=== PATIENT | male | born 1965 | race Caucasian/White ===

== ENCOUNTER → 2018-06-07 07:40 | Outpatient (CLI) | payer OTHER, SELFPAY ==
[2018-06-07 08:40] LABS: Add Manual Diff / Slide Review NO; Basophils Absolute Auto 0 /uL (0-100); Basophils Percent Auto 0.3 % (0-2); Eosinophils Absolute Auto 100 /uL (0-450); Eosinophils Percent Auto 1.9 % (2-4); Hematocrit 42.7 % (41-53); Hemoglobin 14.6 g/dL (13.5-17.5); Lymphocytes Absolute Auto 2400 /uL (1100-4500); Lymphocytes Percent Auto 35.5 % (25-40); Mean Corpuscular HGB Conc 34.1 % (30-36); Mean Corpuscular Hemoglobin 30.1 PG (26-34); Mean Corpuscular Volume 88.3 fL (80-100); Monocytes Absolute Auto 800 /uL (0-900); Monocytes Percent Auto 11.7 % (3-14); Neutrophils Absolute Auto 3400 /uL (1500-7000); Neutrophils Percent Auto 50.6 % (50-75); Platelet Count 305 X10^3/uL (150-400); Red Blood Cell Count 4.84 X10^6/uL (4.5-5.9); Red Cell Distribution Width 13.2 % (11.6-14.8); White Blood Cell Count 6.8 X10^3/uL (4.5-11.0)
[2018-06-07 09:07] LABS: BUN Creatinine Ratio 11.7 (6-22); Blood Urea Nitrogen 14 mg/dL (9-20); Calcium 9.2 mg/dL (8.4-10.2); Carbon Dioxide 27 mmol/L (22-32); Chloride 105 mmol/L (98-107); Estimated Glomerular Filt Rate > 60.0 mL/min (>60); Glucose 91 mg/dL (70-100); HEMOLYSIS < 15 (0-50); Potassium 4.6 mmol/L (3.4-5.1); Sodium 140 mmol/L (137-145); Uric Acid 7.6 mg/dL (3.5-8.5)
[2018-06-07 09:11] LABS: Calcium Urine Random 6.3
[2018-06-07 09:28] LABS: Vitamin D 25 Hydroxy (D3) 21.7 ng/mL (30.0-100.0)
== END ==
PROVIDERS: PCP Student in an Organized Health Care Education/Training Program; Visit Provider Student in an Organized Health Care Education/Training Program
DX: N18.2 Chronic kidney disease, stage 2 (mild) (principal); E55.9 Vitamin D deficiency, unspecified; I12.9 Hypertensive chronic kidney disease with stage 1 through stage 4 chronic kidney disease, or unspecified chronic kidney disease; Z87.442 Personal history of urinary calculi; Z80.7 Family history of other malignant neoplasms of lymphoid, hematopoietic and related tissues
CPT/HCPCS: 36415; 80048; 82306; 82340; 84550; 85025

== ENCOUNTER 2018-06-25 11:45 | Day surgery (SDC) | payer OTHER, SELFPAY ==
[2018-06-25] VITALS (7 sets, daily range): BP systolic 108–129; BP diastolic 64–88; PULSE 81–109; RESP 12–18; TEMP 36.2–37.1; O2SAT 97–100; BMI 22.4
[2018-06-25] MEDS: SODIUM CHLORIDE 0.9% 1,000 ML 200 ML IV (12:23)
--- NOTE | 2018-06-25 12:53 | PM.HP.1 ---
History of Present Illness Chief complaint: [id number] SCREENING COLONOSCOPY Patient History Medical History GERD (gastroesophageal reflux disease) (Chronic ~1994) Hearing loss (Chronic ~2014) Hemorrhoid (Chronic) Hypertension (Chronic ~2011) Kidney stones (Chronic ~1993) Migraines (Chronic) Tinnitus (Chronic) Surgical History Anesthesia (Resolved) History of third molar tooth extraction Status post hernia repair Social History household members: none Smoking Status: Never smoker alcohol intake: never substance use type: does not use Family & Social History Social History: household members none Tobacco & Substance use: Smoking Status Never smoker alcohol intake never Meds Home Medications Medication Instructions Recorded Confirmed Type multivitamin [Multiple Vitamins] 1 tab PO QDAY #0 05/19/17 05/21/18 History lisinopril 10 mg tablet 10 mg PO DAILY #90 tab 05/21/18 Rx potassium citrate ER 15 mEq (1,620 15 meq PO BID #60 tab 05/21/18 Rx mg) tablet,extended release Allergies Allergy/AdvReac Type Severity Reaction Status Date / Time No Known Drug Allergies Allergy Verified 05/21/18 10:47 Review of Systems Review of Systems All systems reviewed & are unremarkable except as noted in HPI and below Exam Vital Signs (past 8 hours): - 06/25/18 12:16 Temperature 97.2 F L Pulse Rate 109 H Respiratory Rate 16 Blood Pressure 119/83 Pulse Oximetry 100 Oxygen Delivery Method Room Air Narrative Exam Narrative: Patient has normal vital signs which are stable Ears nose and throat are unremarkable Lungs are clear Heart regular rhythm no murmur Abdomen is soft and nontender Rectal will be done at the time of colonoscopy Assessment & Plan Assessment & Plan narrative: Patient is here for a screening colonoscopy this is his 1st colonoscopy. I explained the details of procedure including possible risks of bleeding perforation etc he understands has no further questions.
[2018-06-25] MEDS: MIDAZOLAM 5 MG/5 ML VIAL IV (13:24)
--- NOTE | 2018-06-25 13:24 | PM.OP.1 ---
Operative Date/Time/Diagnoses Date of procedure: 06/25/18 Time of procedure: 13:24 Pre-op diagnosis: Screening colonoscopy Post-op diagnosis: same Procedure & Clinicians Procedure: Total colonoscopy to the cecum Same procedure as scheduled: Yes Indications: Screening Surgeon: Real Holguin Click Yes if Unassisted: Yes Anesthesia Type: Sedation Operative Notes Findings: Patient has moderately large internal hemorrhoids otherwise a normal colonoscopy Closure Type: not applicable Specimen(s): none sent Blood products transfused: none Procedure in detail: Under conscious sedation with Versed and fentanyl a total of 5 of Versed and 150 of fentanyl were given with a total sedation time of 16 minutes. The patient was properly identified during surgical pause and the flexible fiberoptic colonoscope inserted from the anus to the cecum patient has no polyps no tumors no diverticulosis. He does have dilated internal hemorrhoids of a moderate nature. Recommend repeat colonoscopy in 10 years. Complications: none Condition: stable Disposition: PACU Plan for aftercare: Colonoscopy in 10 years
[2018-06-25] MEDS: fentaNYL 250 MCG/5 ML INJ IV (13:25)
== END 2018-06-25 14:13 | disposition home or self-care (01) ==
PROVIDERS: PCP Student in an Organized Health Care Education/Training Program; Visit Provider Surgery
PROC: 0DJD8ZZ Inspection of Lower Intestinal Tract, Via Natural or Artificial Opening Endoscopic (ICD-10-PCS; CPT 45378; principal; 2018-06-25 13:00)
DX: Z12.11 Encounter for screening for malignant neoplasm of colon (principal); K64.8 Other hemorrhoids; I10 Essential (primary) hypertension
CPT/HCPCS: 45378; J2250; J3010

== ENCOUNTER 2019-11-01 09:57 | Inpatient (IN) | payer OTHER, SELFPAY ==
[2019-11-01] VITALS (14 sets, daily range): BP systolic 134–150; BP diastolic 87–105; PULSE 81–90; RESP 14–18; TEMP 36.3–37.8; O2SAT 95–100; BMI 21.7
--- NOTE | 2019-11-01 | DI.CT.S_ITS ---
PROCEDURE: CT PEL WO CON INDICATIONS: assess fracture pattern in anticipation of OR tomorrow TECHNIQUE: Noncontrast 3 mm axial sections acquired through the bony pelvis, with coronal and sagittal reformatting. COMPARISON: None. FINDINGS: Image quality: Excellent. Bones: Right femoral neck fracture, mildly impacted. This fracture does not extend into the articular surface or into the intertrochanteric line. No additional pelvic fracture found. Soft tissues: No hematoma identified. IMPRESSION: Mildly impacted femoral neck fracture at the right hip, no additional trauma Dictated by: Khadar Fay M.D. on 11/01/2019 at 18:24 Approved by: Khadar Fay M.D. on 11/01/2019 at 18:26
--- NOTE | 2019-11-01 10:02 | DI.RAD.S_ITS ---
PROCEDURE: XR HIP W PEL IF DONE RT 2V INDICATIONS: fall pain TECHNIQUE: AP pelvis with lateral view(s) of the right hip. COMPARISON: None. FINDINGS: Bones: No dislocations. Pelvic ring appears intact. No suspicious bony lesions. There is a femoral neck fracture on the right, mildly displaced and angulated. Soft tissues: The visualized bowel gas pattern is normal. No suspicious soft tissue calcifications. IMPRESSION: Acute appearing right femoral neck fracture, no additional pelvic injury found. Dictated by: Khadar Fay M.D. on 11/01/2019 at 10:38 Approved by: Khadar Fay M.D. on 11/01/2019 at 10:39
[2019-11-01 10:08] LABS: Add Manual Diff / Slide Review NO; Basophils Absolute Auto 0 /uL (0-100); Basophils Percent Auto 0.1 % (0-2); Eosinophils Absolute Auto 0 /uL (0-450); Hematocrit 46.5 % (41-53); Hemoglobin 15.7 g/dL (13.5-17.5); Lymphocytes Absolute Auto 900 /uL (1100-4500); Lymphocytes Percent Auto 5.4 % (25-40); Mean Corpuscular HGB Conc 33.8 % (30-36); Mean Corpuscular Hemoglobin 29.6 PG (26-34); Mean Corpuscular Volume 87.5 fL (80-100); Monocytes Absolute Auto 1000 /uL (0-900); Monocytes Percent Auto 5.9 % (3-14); Neutrophils Absolute Auto 15400 /uL (1500-7000); Neutrophils Percent Auto 88.6 % (50-75); Platelet Count 330 X10^3/uL (150-400); Red Blood Cell Count 5.31 X10^6/uL (4.5-5.9); Red Cell Distribution Width 13.3 % (11.6-14.8); White Blood Cell Count 17.4 X10^3/uL (4.5-11.0)
--- NOTE | 2019-11-01 10:10 | ED_ITS ---
HPI - Extremity Injury (Lower) General Chief Complaint: Extremity Injury, Lower Stated Complaint: R Hip Injury Time Seen by Provider: 11/01/19 10:01 Source: patient and EMS Mode of arrival: EMS Limitations: no limitations History of Present Illness HPI Narrative: Patient is a 54-year-old male with history of hypertension who presents with right hip pain after a fall. He says the smoke alarm was going off early this morning around 330 he got a ladder possibly around 5 he says he was wearing tennis shoes there was not enough friction between is 10 issues in the floor and he slipped and fell. He was unable to get help he missed a meeting around 830 the and somebody came to check on him. Denies any head in in jury or loss of consciousness. He has no numbness tingling or weakness in his lower extremity but he has severe pain in his hip. MD complaint: hip injury Onset (ago): hour(s) Related Data Home Medications Medication Instructions Recorded Confirmed multivitamin [Multiple Vitamins] 1 tab PO QDAY #0 05/19/17 05/21/18 Previous Rx's Medication Instructions Recorded lisinopril 10 mg tablet 10 mg PO DAILY #90 tab 05/21/18 potassium citrate 15 mEq (1,620 15 meq PO BID #60 tab 11/29/18 mg) tablet,extended release Allergies Allergy/AdvReac Type Severity Reaction Status Date / Time No Known Drug Allergies Allergy Verified 11/01/19 10:16 Review of Systems Review of Systems Narrative: GENERAL: Denies chills, fatigue, malaise, fever, sweats, travel HEENT: Denies sinus pain, ear pain, sore throat, difficulty swallowing, neck pain RESPIRATORY: Denies dyspnea, cough, wheezing, hemoptysis, sputum. CARDIOVASCULAR: Denies chest pain, palpitations, orthopnea, edema GASTROINTESTINAL: Denies nausea, vomiting, abdominal pain, diarrhea, constipation, melena. : Denies dysuria, frequency, incontinence, hematuria, urinary retention, flank pain. MUSCULOSKELETAL: See HPI SKIN: No rash, no erythema, no pruritus NEUROLOGIC: Denies weakness, dizziness, headache, numbness, change in speech, confusion PSYCHIATRIC: No concerning psychosocial issues. 12 point review of systems is negative except for those stated above and HPI Patient History Medical History GERD (gastroesophageal reflux disease) (Chronic ~1994) Hearing loss (Chronic ~2014) Hemorrhoid (Chronic) Hypertension (Chronic ~2011) Kidney stones (Chronic ~1993) Migraines (Chronic) Tinnitus (Chronic) Surgical History Anesthesia (Resolved) History of third molar tooth extraction Status post hernia repair Social History household members: none Smoking Status: Never smoker alcohol intake: never substance use type: does not use Smoking Status: Never smoker Exam Initial Vital Signs Initial Vital Signs: Vital Signs Temperature 98 F 11/01/19 10:00 Pulse Rate 88 11/01/19 10:00 Respiratory Rate 18 11/01/19 10:00 Blood Pressure 134/105 H 11/01/19 10:00 Pulse Oximetry 100 11/01/19 10:00 GENERAL: Well-appearing, well-nourished and in no acute distress. HEENT: Head atraumatic,EOMI, pupils reactive, face symmetric, moist mucous membranes CARDIOVASCULAR: Regular rate and rhythm without murmurs, rubs or gallops. RESPIRATORY: Breath sounds equal bilaterally, no wheezes rales or rhonchi. ABDOMEN: Soft, nontender. Normoactive bowel sounds all 4 quadrants. No guarding or rebound. EXTREMITIES: Normal range of motion, no clubbing or edema. Neurovascularly intact. Tender right hip NEUROLOGICAL: Alert and oriented x4.Normal gait and speech. SKIN: Warm, dry, no laceration, no petechiae, no rashes or lesions. Course Orders Ordered: ED Orders 11/01/19 09:35 Complete Blood Count AUTO DIFF Stat Comprehensive Metabolic Panel Stat Creatine Kinase Stat 11/01/19 10:02 XR hip w pel if done RT 2V Stat 11/01/19 11:23 Consult to Orthopedic Surgery Stat 11/01/19 11:28 EKG-12 Lead Stat Discontinued Medications Hydromorphone HCl (Dilaudid) 0.5 mg IV NOW ONE Stop: 11/01/19 10:43 Last Admin: 11/01/19 10:54 Dose: 0.5 mg Documented by: JANIE Consultations Consultation #1: Vijaya reviewed xrays. will need total hip. Time: 10:45 Vital Signs Vital signs: Vital Signs - 8 hr 11/01/19 10:00 11/01/19 10:01 11/01/19 10:30 Temperature 98 F Pulse Rate 88 84 90 Respiratory Rate 18 Blood Pressure 134/105 H 149/87 H Pulse Oximetry 100 100 100 11/01/19 11:00 Temperature Pulse Rate 84 Respiratory Rate Blood Pressure 147/92 H Pulse Oximetry 100 MDM - Extremity Injury (Lower) Lab Data Attestation: I reviewed the patient's lab results. Result diagrams: 11/01/19 09:35 11/01/19 09:35 Labs: Lab Results 11/01/19 11/01/19 Range/Units 09:35 09:35 WBC 17.4 H (4.5-11.0) X10^3/uL RBC 5.31 (4.5-5.9) X10^6/uL Hgb 15.7 (13.5-17.5) g/dL Hct 46.5 (41-53) % MCV 87.5 (80-100) fL MCH 29.6 (26-34) PG MCHC 33.8 (30-36) % RDW 13.3 (11.6-14.8) % Plt Count 330 (150-400) X10^3/uL Neut % (Auto) 88.6 H (50-75) % Lymph % (Auto) 5.4 L (25-40) % [place] % (Auto) 5.9 (3-14) % Eos % (Auto) 0.0 L (2-4) % Baso % (Auto) 0.1 (0-2) % Neut # (Auto) 93306 H (1427-0602) /uL Lymph # (Auto) 900 L (4331-5276) /uL [place] # (Auto) 1000 H (0-900) /uL Eos # (Auto) 0 (0-450) /uL Baso # (Auto) 0 (0-100) /uL Sodium 143 (137-145) mmol/L Potassium 4.3 (3.4-5.1) mmol/L Chloride 107 (98-107) mmol/L Carbon Dioxide 24 (22-32) mmol/L BUN 16 (9-20) mg/dL Creatinine 1.21 (0.66-1.25) mg/dL Estimated GFR > 60.0 (>60) mL/min BUN/Creatinine Ratio 13.2 (6-22) Glucose 122 H (70-100) mg/dL Calcium 9.9 (8.4-10.2) mg/dL Total Bilirubin 2.1 H (0.2-1.3) mg/dL AST 47 (17-59) IU/L ALT 64 H (<50) IU/L Alkaline Phosphatase 90 (38-126) U/L Total Creatine Kinase 69 (55-170) U/L Total Protein 7.8 (6.3-8.2) g/dL Albumin 4.8 (3.5-5.0) g/dL Globulin 3.0 (1.7-4.1) g/dL Albumin/Globulin Ratio 1.6 (1.0-2.8) Imaging Data Extremity x-ray #1: Radiologist's Impression: PROCEDURE: XR HIP W PEL IF DONE RT 2V INDICATIONS: fall pain TECHNIQUE: AP pelvis with lateral view(s) of the right hip. COMPARISON: None. FINDINGS: Bones: No dislocations. Pelvic ring appears intact. No suspicious bony lesions. There is a femoral neck fracture on the right, mildly displaced and angulated. Soft tissues: The visualized bowel gas pattern is normal. No suspicious soft tissue calcifications. IMPRESSION: Acute appearing right femoral neck fracture, no additional pelvic injury found. Dictated by: Khadar Fay M.D. on 11/01/2019 at 10:38 Approved by: Khadar Fay M.D. on 11/01/2019 at 10:39 ECG Data Attestation: I personally reviewed and interpreted this ECG as follows: Prior ECG tracings: not available for review Interpretation: Normal sinus rhythm rate 85 p.r. interval 168 QRS [address] changes prolonged QT no priors to compare MDM Narrative Medical decision making narrative: The patient is given Dilaudid for pain contr ol. Leukocytosis unclear why, patient has been afebrile without infectious symptoms, possible stress related. CPK is is within normal limits no sign of rhabdomyolysis. [facility] accepts for admission. Discharge Plan Departure Patient Disposition: Admitted As Inpatient Clinical Impression: Closed fracture of neck of right femur Discharge Date/Time: 11/01/19 12:15 Referrals: Martín James MD [Primary Care Provider] - Admit Date/Time: 11/01/19 11:28 Admit Provider: David Scales
[2019-11-01 10:20] LABS: Alanine Aminotransferase 64 IU/L (<50); Albumin 4.8 g/dL (3.5-5.0); Albumin Globulin Ratio 1.6 (1.0-2.8); Alkaline Phosphatase 90 U/L (38-126); Aspartate Aminotransferase 47 IU/L (17-59); BUN Creatinine Ratio 13.2 (6-22); Bilirubin Total 2.1 mg/dL (0.2-1.3); Blood Urea Nitrogen 16 mg/dL (9-20); Calcium 9.9 mg/dL (8.4-10.2); Carbon Dioxide 24 mmol/L (22-32); Chloride 107 mmol/L (98-107); Creatine Kinase 69 U/L (55-170); Estimated Glomerular Filt Rate > 60.0 mL/min (>60); Glucose 122 mg/dL (70-100); HEMOLYSIS 16 (0-50); Potassium 4.3 mmol/L (3.4-5.1); Sodium 143 mmol/L (137-145); Total Protein 7.8 g/dL (6.3-8.2)
[2019-11-01] MEDS: HYDROMORPHONE 0.5 MG INJ IV (10:54)
--- NOTE | 2019-11-01 12:30 | PC.NURSE ---
Day shift: Pt on unit at approx 1215. Rt hip pain with any movement. BP elevated w/ no c/o headache or chest pain. RA 98%. Dr Scales informed Pt is here now in RM 212. Pt oriented to room and call light. Call light in reach.
[2019-11-01 12:55] LABS: COVID19 -Nasal RAPID Negative (Negative)
--- NOTE | 2019-11-01 13:40 | PM.HP.1 ---
History of Present Illness History of Present Illness Date Patient Seen: 11/01/19 Time Patient Seen: 13:40 Chief complaint: R Hip Injury Narrative: Yair Barreto is a 54-year-old male with a past medical history of hypertension, no longer on medications, who presented after a mechanical fall landing on his right side complaining of severe right hip pain. Patient states that he was walking down the stairs with a ladder, at the bottom of the stairs is tile and he slipped and fell on the tile landing on his right hip. He was able to crawl and sit up until waiting for a couple hours for someone to arrive and call EMS. His pain was somewhat controlled with opiates in the ER, and there is little to no pain at rest but it is severe when moving at all. He denies any history of osteoporosis although he does endorse prior rib fractures in the past. In the emergency room, patient was mildly hypertensive but remainder vital signs were unremarkable. Initial labs showed a leukocytosis at 17.4, but otherwise unremarkable CBC. Chemistries showed a mildly elevated glucose at 122, total bilirubin of 2.1, and ALT of 64. COVID-19 testing was negative. Calcium was normal at 9.9. EKG showed normal sinus rhythm with a mild prolonged QTC interval at 485. Hip x-ray showed an acute right femoral neck fracture which is mildly displaced and angulated. Patient History Medical History GERD (gastroesophageal reflux disease) (Chronic ~1994) Hearing loss (Chronic ~2014) Hemorrhoid (Chronic) Hypertension (Chronic ~2011) Kidney stones (Chronic ~1993) Migraines (Chronic) Tinnitus (Chronic) Surgical History Anesthesia (Resolved) History of third molar tooth extraction Status post hernia repair Family & Social History Social History: household members none Safety & Behavioral: Feels Safe in Current Yes Environment Been Physically Hurt or No Threatened By a Person Tobacco & Substance use: Smoking Status Never smoker alcohol intake never alcohol intake frequency 0-2 drinks per day Substance Use Type does not use Meds Home Medications and Allergies Home Medications Medication Instructions Recorded Confirmed Type multivitamin [Multiple Vitamins] 1 tab PO QDAY #0 05/19/17 05/21/18 History lisinopril 10 mg tablet 10 mg PO DAILY #90 tab 05/21/18 Rx potassium citrate 15 mEq (1,620 15 meq PO BID #60 tab 11/29/18 Rx mg) tablet,extended release Allergies Allergy/AdvReac Type Severity Reaction Status Date / Time No Known Drug Allergies Allergy Verified 11/01/19 10:16 Review of Systems Review of Systems Narrative: All other systems reviewed with the patient and are negative unless otherwise stated. Exam Vital Signs (past 8 hours): - 11/01/19 10:00 11/01/19 10:01 11/01/19 10:30 Temperature 98 F Pulse Rate 88 84 90 Respiratory Rate 18 Blood Pressure 134/105 H 149/87 H Pulse Oximetry 100 100 100 11/01/19 11:00 11/01/19 11:30 11/01/19 12:00 Temperature Pulse Rate 84 90 89 Respiratory Rate Blood Pressure 147/92 H 140/88 146/90 H Pulse Oximetry 100 100 100 Oxygen Delivery Method Room Air Narrative Exam Narrative: GENERAL APPEARANCE: Well developed, well nourished, mildly anxious. SKIN: Inspection of the skin reveals no rashes, ulcerations or petechiae. HEENT: Normocephalic atraumatic, extraocular muscles are intact, oropharynx is clear and mucous membranes are moist, neck is supple without adenopathy NECK: Supple and symmetric. There was no thyroid enlargement, and no tenderness, or masses were felt. CHEST: Normal AP diameter and normal contour without any kyphoscoliosis. LUNGS: Auscultation of the lungs revealed no wheezes, rhonchi, or rales. CARDIOVASCULAR: There was a regular rate and rhythm without any murmurs, gallops, rubs. Peripheral pulses were 2+ and symmetric. ABDOMEN: Soft and nontender with normal bowel sounds. No ascites was noted. MUSCULOSKELETAL: R hip tenderness, flexed at the hips and legs tied around a pillow. Distal pulses +2. EXTREMITIES: No cyanosis, clubbing or edema. NEUROLOGIC: Alert and oriented x 3. Normal affect. Gait was normal. Normal tone. Sensation to touch was normal. Objective Labs Result Diagrams: 11/01/19 09:35 11/01/19 09:35 Labs: Laboratory Results - last 24 hr 11/01/19 11/01/19 11/01/19 09:35 09:35 12:00 WBC 17.4 H RBC 5.31 Hgb 15.7 Hct 46.5 MCV 87.5 MCH 29.6 MCHC 33.8 RDW 13.3 Plt Count 330 Neut % (Auto) 88.6 H Lymph % (Auto) 5.4 L [place] % (Auto) 5.9 Eos % (Auto) 0.0 L Baso % (Auto) 0.1 Neut # (Auto) 41843 H Lymph # (Auto) 900 L [place] # (Auto) 1000 H Eos # (Auto) 0 Baso # (Auto) 0 Sodium 143 Potassium 4.3 Chloride 107 Carbon Dioxide 24 BUN 16 Creatinine 1.21 Estimated GFR > 60.0 BUN/Creatinine Ratio 13.2 Glucose 122 H Calcium 9.9 Total Bilirubin 2.1 H AST 47 ALT 64 H Alkaline Phosphatase 90 Total Creatine Kinase 69 Total Protein 7.8 Albumin 4.8 Globulin 3.0 Albumin/Globulin Ratio 1.6 COVID-19 PCR Negative Assessment & Plan Assessment & Plan narrative: Yair Barreto is a 54-year-old male with a past medical history of hypertension, no longer on medications, who presented after a mechanical fall landing on his right side complaining of severe right hip pain. He has a right femoral neck fracture that is mildly displaced and angulated, pending orthopedic consultation with likely operative interventions. 1. Right femoral neck fracture, acute, present on admission -pending orthopedic surgery formal consultation -NPO/IV fluids and pain control with Toradol and Dilaudid -PT/OT have been ordered -likely pathologic given nature of ground level fall. His calcium is unremarkable, will obtain a TSH to look for a possible secondary cause of early osteoporosis. Patient does have a history of vitamin-D deficiency and will recheck this level. 2. History of hypertension -has been off of pain medications but used to take lisinopril 10 mg. At this point blood pressure is mildly elevated likely in the setting of pain. Will continue to monitor and treat as necessary. -his EKG shows a mildly prolonged QT interval and will continue telemetry 3. Prolonged QT interval -continue telemetry 4. Leukocytosis, acute, present on admisison -likely reactive in the setting of trauma, no other signs or symptoms of infection but will continue to monitor. Code: Full, as discussed with the patient Dispo: Admitted under inpatient status as his stay is expected to exceed 2 midnights. DVT: On hold given possible operative interventions, will resume chemical prophylaxis after likely operative interventions COVID-19 COVID-19 status: Negative
--- NOTE | 2019-11-01 13:52 | OT.IPNOTE ---
Pt has right femoral neck fracture, to await results of orthopedic consult prior to OT eval.
[2019-11-01] MEDS: DEXTROSE 5%-0.45% NS 1,000 ML 100 ML IV (13:54)
[2019-11-01] MEDS: HYDROMORPHONE 1 MG INJ IV ×2 (13:55→17:58)
--- NOTE | 2019-11-01 17:37 | PM.CN ---
History of Present Illness Consult details Date Patient Seen: 11/01/19 Time Patient Seen: 17:37 Chief complaint: R Hip Injury Reason for consult: right displaced intra-capsular femoral neck fracture Narrative: Patient is a 54-year-old male with a past medical history of hypertension, he is no longer on medications, who presented after a mechanical fall landing on his right side complaining of severe right hip pain. Patient states that he was walking down the stairs with a ladder, at the bottom of the stairs is tile and he slipped and fell on the tile landing on his right hip. He was able to crawl and sit up until waiting for a couple hours for someone to arrive and call EMS. His pain was somewhat controlled with opiates in the ER, and there is little to no pain at rest but it is severe when moving at all. He denies any history of osteoporosis although he does endorse prior rib fractures in the past. He denies history of right hip or groin pain prior to the injury. He denies any previous surgeries. He denies history of frequent mechanical falls. He denies striking his head or any loss of consciousness. Patient ambulates without any assistive devices. Meds Home Medications and Allergies Home Medications Medication Instructions Recorded Confirmed Type multivitamin [Multiple Vitamins] 1 tab PO QDAY #0 05/19/17 05/21/18 History lisinopril 10 mg tablet 10 mg PO DAILY #90 tab 05/21/18 Rx potassium citrate 15 mEq (1,620 15 meq PO BID #60 tab 11/29/18 Rx mg) tablet,extended release Allergies Allergy/AdvReac Type Severity Reaction Status Date / Time No Known Drug Allergies Allergy Verified 11/01/19 10:16 Review of Systems Review of Systems ROS: Yes All systems reviewed with the patient and are negative except as otherwise documented Exam Vital Signs (past 8 hours): - 11/01/19 10:00 11/01/19 10:01 11/01/19 10:30 Temperature 98 F Pulse Rate 88 84 90 Respiratory Rate 18 Blood Pressure 134/105 H 149/87 H Pulse Oximetry 100 100 100 11/01/19 11:00 11/01/19 11:30 11/01/19 12:00 Temperature Pulse Rate 84 90 89 Respiratory Rate Blood Pressure 147/92 H 140/88 146/90 H Pulse Oximetry 100 100 100 11/01/19 12:25 11/01/19 14:25 11/01/19 15:30 Temperature 98.8 F 99.8 F H Pulse Rate 87 87 Respiratory Rate 16 14 Blood Pressure 143/105 H 148/87 H Pulse Oximetry 100 98 99 Oxygen Delivery Method Room Air Oxygen Flow Rate 0 Narrative Exam Narrative: Neurovascularly intact in the right lower extremity. No skin breaks. Patient is holding his hip in a flexed position for comfort. Skin over the anterior hip is benign appearing no rashes or skin breaks. Objective Imaging Pelvis x-ray: My impression: Displaced intracapsular right femoral neck fracture Labs Result Diagrams: 11/01/19 09:35 11/01/19 09:35 Labs: Laboratory Results - last 24 hr 11/01/19 11/01/19 11/01/19 09:35 09:35 12:00 WBC 17.4 H RBC 5.31 Hgb 15.7 Hct 46.5 MCV 87.5 MCH 29.6 MCHC 33.8 RDW 13.3 Plt Count 330 Neut % (Auto) 88.6 H Lymph % (Auto) 5.4 L [place] % (Auto) 5.9 Eos % (Auto) 0.0 L Baso % (Auto) 0.1 Neut # (Auto) 71897 H Lymph # (Auto) 900 L [place] # (Auto) 1000 H Eos # (Auto) 0 Baso # (Auto) 0 Sodium 143 Potassium 4.3 Chloride 107 Carbon Dioxide 24 BUN 16 Creatinine 1.21 Estimated GFR > 60.0 BUN/Creatinine Ratio 13.2 Glucose 122 H Calcium 9.9 Total Bilirubin 2.1 H AST 47 ALT 64 H Alkaline Phosphatase 90 Total Creatine Kinase 69 Total Protein 7.8 Albumin 4.8 Globulin 3.0 Albumin/Globulin Ratio 1.6 COVID-19 PCR Negative Assessment & Plan Assessment & Plan narrative: Patient is a 54-year-old male who had a mechanical fall while carrying a ladder down some stairs. He landed onto a tile landing on his right hip and sustained a displaced intracapsular femoral neck fracture. I had a long discussion with the patient regarding his exam findings as well as x-ray findings. I discussed potential treatment options of which I think the best option for him from a functional standpoint would be a total hip arthroplasty due to his age and activity level. We discussed the risks and benefits including the risk of DVT, PE, infection, iatrogenic fracture, dislocations, infection, need for future surgeries, incomplete relief of symptoms, etc. Patient demonstrates understanding of the risks and benefits of total hip arthroplasty for treatment of a displaced intracapsular femoral neck fracture. We also discussed that total hip arthroplasty in the setting of fracture is not as successful as total hip arthroplasty in the setting of osteoarthritis but that again this is likely his best option. We reviewed his past medical history which is significant for hypertension previously to with lisinopril please not currently on lisinopril. He does have a history of the mitral valve regurgitation but does not take any medications for this. Patient lives alone at home he may require SNF placement postoperatively. Plan will be for a right anterior total hip arthroplasty. - OCTOR tomorrow for right anterior KEERTHI - NPO after midnight - nonweightbearing right lower extremity - CT scan right hip COVID-19 COVID-19 status: Negative Result date/Date tested (Pos, Neg/Pending): 11/01/19 Time Spent With Patient Time with patient: 25 - 35 minutes
[2019-11-01] MEDS: LIDOCAINE 2% (UROJET) 5 ML GEL TOP (20:47)
[2019-11-01] MEDS: KETOROLAC 30 MG/ML VIAL IV (20:49)
[2019-11-02] VITALS (22 sets, daily range): BP systolic 110–154; BP diastolic 69–93; PULSE 74–117; RESP 8–18; TEMP 36.1–37.6; O2SAT 96–100; BMI 21.7
--- NOTE | 2019-11-02 | PATH_ITS ---
[facility] Accession Number: [id number] . 01 Material submitted: . femur - RIGHT FEMORAL HEAD . 01 Clinical history: . R HIP INJURY . 02 Diagnosis: Right Femoral Head, Right Anterior Total Hip Arthroplasty: 1. Bone with changes consistent with fracture. 2. Benign fibroadipose tissue and cartilage. 3. No evidence of malignancy. [facility] 11/08/2019 1339 Local . 02 Electronically signed: . Deborah Vasquez MD, Pathologist NPI- [id number] . 01 Gross description: . Received in formalin, labeled with the patient's name, MRN and right femoral head, is a 5.1 x 5.0 x 4.7 cm femoral head with a smooth nava-white cartilaginous head. There is no attached neck. The resection margin is partially smooth and partially jagged. The jagged area is partially hemorrhagic and slightly soft. The resection margin is inked blue. Separate within the container is a 5.2 x 4.5 x 1.3 cm aggregate of nava-white irregular fragments of bone. Sleeve Machine Tender sections are submitted as follows: . A1: commercial sales representative sections of semi-soft tissue at jagged resection margin. A2. perpendicular sections of jagged resection margin with articular surface, submitted after decalcification. A3: commercial sales representative sections of bone separate within the container, submitted after decalcification. ([id number]) /MRV 11/04/2019 1456 Local . 02 Pathologist provided ICD-10: S72.001A . 02 CPT . 374556 Performed at: 01 [facility] [address] [place] [address] [address] [facility], [place], [place] [id number] MD Rigo Mireles MD Phone: [phone] Performed at: 02 [facility] [address] [place] [id number] MD Deborah Vasquez MD Phone: [phone]
--- NOTE | 2019-11-02 | DI.RAD.S_ITS ---
PROCEDURE: XR HIP W PEL IF DONE RT 2V INDICATIONS: INTRA OPERATIVE RT HIP TECHNIQUE: Multiple intraoperative fluoroscopic views of the right hip were acquired. COMPARISON: [facility], , XR HIP W PEL IF DONE RT 2V, 11/01/2019, 9:58. FINDINGS: Bones: Multiple intraoperative fluoroscopic views demonstrate placement of a total right hip arthroplasty. IMPRESSION: Intraoperative fluoroscopic views of right hip arthroplasty. Dictated by: Opal Jansen M.D. on 11/02/2019 at 21:02 Approved by: Opal Jansen M.D. on 11/02/2019 at 21:03
--- NOTE | 2019-11-02 | DI.RAD.S_ITS ---
PROCEDURE: XR PELVIS 1-2V INDICATIONS: ANTERIOR RIGHT HIP TECHNIQUE: 1 view of the lower pelvis acquired. COMPARISON: None. FINDINGS: Bones: Patient is status post right hip arthroplasty, with hardware components in expected positions. The hip joint appears congruent. The visualized bony structures appear intact. Soft tissues: Overlying postoperative changes are noted. No suspicious soft tissue densities. IMPRESSION: Status post right hip arthroplasty. Dictated by: Opal Jansen M.D. on 11/02/2019 at 21:49 Approved by: Opal Jansen M.D. on 11/02/2019 at 21:49
[2019-11-02] MEDS: DEXTROSE 5%-0.45% NS 1,000 ML 100 ML IV ×2 (00:09→09:20)
[2019-11-02 05:29] LABS: Add Manual Diff / Slide Review NO; Basophils Absolute Auto 0 /uL (0-100); Basophils Percent Auto 0.1 % (0-2); Eosinophils Absolute Auto 0 /uL (0-450); Eosinophils Percent Auto 0.1 % (2-4); Hematocrit 40.8 % (41-53); Hemoglobin 13.9 g/dL (13.5-17.5); Lymphocytes Absolute Auto 1600 /uL (1100-4500); Lymphocytes Percent Auto 15.7 % (25-40); Mean Corpuscular HGB Conc 34.1 % (30-36); Mean Corpuscular Hemoglobin 30.2 PG (26-34); Mean Corpuscular Volume 88.6 fL (80-100); Monocytes Absolute Auto 1600 /uL (0-900); Monocytes Percent Auto 15.8 % (3-14); Neutrophils Absolute Auto 6700 /uL (1500-7000); Neutrophils Percent Auto 68.3 % (50-75); Platelet Count 222 X10^3/uL (150-400); Red Cell Distribution Width 13.7 % (11.6-14.8); White Blood Cell Count 9.9 X10^3/uL (4.5-11.0)
[2019-11-02 05:37] LABS: Alanine Aminotransferase 46 IU/L (<50); Albumin 3.8 g/dL (3.5-5.0); Albumin Globulin Ratio 1.5 (1.0-2.8); Alkaline Phosphatase 61 U/L (38-126); Aspartate Aminotransferase 31 IU/L (17-59); BUN Creatinine Ratio 11.2 (6-22); Bilirubin Total 3.2 mg/dL (0.2-1.3); Bilirubin Unconjugated 3.1 mg/dL (0.0-1.1); Blood Urea Nitrogen 13 mg/dL (9-20); Calcium 8.9 mg/dL (8.4-10.2); Carbon Dioxide 27 mmol/L (22-32); Chloride 106 mmol/L (98-107); Estimated Glomerular Filt Rate > 60.0 mL/min (>60); Globulin 2.6 g/dL (1.7-4.1); Glucose 121 mg/dL (70-100); HEMOLYSIS < 15 (0-50); Magnesium 2.1 mg/dL (1.6-2.3); Potassium 4.4 mmol/L (3.4-5.1); Sodium 138 mmol/L (137-145); Total Protein 6.4 g/dL (6.3-8.2)
[2019-11-02 05:42] LABS: Hemoglobin A1C% w Est Avg Glu 5.2 % (4.0-6.0)
--- NOTE | 2019-11-02 08:59 | PT-IP ANOTE ---
Pt with R hip fx and scheduled for surgery. PT eval on hold and will f/u after surgery
--- NOTE | 2019-11-02 09:12 | CM.DANOTE ---
DCP: Case received, EMR reviewed and met with patient. Introduced self and role. Was able to obtain some information from patient regarding his baseline activity level and living situation. DCP assessment completed with information currently available. Patient is a 54 year old male who admitted yesterday morning to the care of the hospitalist team. PCP: Dr. James. Payer: confirmed: [facility]. Patient came to the hospital via ambulance secondary to a ground level fall. He had been attempting to fix his smoke detector in his home, and tripped over the ladder. He sustained a displaced right femoral neck fracture. He is going to be havint total hip arthroplasty surgery today. Met with patient. Confirmed that he resides alone in [place]. He has no immediate family in the area. He is independent at baseline, and is employed. Discussed briefly some options such as care home versus home health, depending on his status after surgery. Let him know that [facility] would rely on his physical therapy notes to see if skilled is recommended. Went ahead and sent referral for Nereida at [facility] to review. P:DCP to continue to follow. Will see how he does after surgery, and with P.T. [facility] at [facility] reviewing. If skilled is the plan, will need to fax [facility] P.T. notes. Other option is home with home health. Karen Mazariegos RN/Kerfer Machine Operator
--- NOTE | 2019-11-02 10:00 | OT.IPNOTE ---
To see pt for OT nathanael after his hip surgery.
--- NOTE | 2019-11-02 10:25 | PC.NURSE ---
Called to surgery to see if pt could have a snack per Dr. Scales, they said no, in case he get's pushed up for surgery.
[2019-11-02] MEDS: KETOROLAC 30 MG/ML VIAL IV (13:33)
[2019-11-02] MEDS: HYDROMORPHONE 1 MG INJ IV (13:42)
--- NOTE | 2019-11-02 15:34 | DIET.PN ---
Dietary Progress Note Assessment: 54y M admitted for R hip fracture suffered while carrying ladder and falling on tile floor of home referred to nutrition for recent weight loss. Pt reports marginally concerning weight loss (his own words) since May 2019 r/t no longer eating out due to coronavirus. Pt now cooks at home for self and eats protein foods including cheese, trail mix, and frozen dinners. Pt does not feel he needs assistance from dietary at this time, or supplemental protein options, and wants to focus on healing of his hip. HT: 182.8cm WT:72.5kg (-7.7% in 6mo, non-severe) UBW: 78kg BMI: 21.7 Interventions: 1. Discussed importance of protein in healing after traumatic injury kevin during time of unintended weight loss. Encouraged pt to prioritize protein containing foods to aid healing. 2. Encouraged pt to contact RD after procedure for protein supplement options (yogurt smoothie, milkshake, [place], etc), pt declines need at this time. Diet Order: NPO Monitoring/Evaluations: further education/ONS as desired by pt
--- NOTE | 2019-11-02 16:19 | PM.PN.1 ---
Subjective Subjective Date Patient Seen: 11/02/19 Time Patient Seen: 10:15 Interval history: Yair Barreto is a 54-year-old male with a past medical history of hypertension, no longer on medications, who presented after a mechanical fall landing on his right side complaining of severe right hip pain and ultimately suffered a right femoral neck fracture. He is pending operative intervention later today with orthopedic surgery. His bilirubin does continue to rise, although it is unconjugated. He complains of no abdominal pain. He states he did not eat anything yesterday but is not all that hungry due to some nausea with the pain medications as well as some anxiety about his broken leg. Exam Vital Signs (past 8 hours): - 11/02/19 09:00 11/02/19 10:00 11/02/19 12:46 Temperature 98.2 F 98.7 F Pulse Rate 85 91 H Respiratory Rate 14 14 Blood Pressure 144/91 H 145/79 H Pulse Oximetry 100 100 99 11/02/19 14:00 11/02/19 15:30 Temperature 98.1 F Pulse Rate 74 Respiratory Rate 18 Blood Pressure Pulse Oximetry 99 98 Oxygen Delivery Method Room Air Oxygen Flow Rate 0 Narrative Exam Narrative: GENERAL APPEARANCE: Well developed, well nourished, mildly anxious. SKIN: Inspection of the skin reveals no rashes, ulcerations or petechiae. HEENT: Normocephalic atraumatic, extraocular muscles are intact, oropharynx is clear and mucous membranes are moist, neck is supple without adenopathy NECK: Supple and symmetric. There was no thyroid enlargement, and no tenderness, or masses were felt. CHEST: Normal AP diameter and normal contour without any kyphoscoliosis. LUNGS: Auscultation of the lungs revealed no wheezes, rhonchi, or rales. CARDIOVASCULAR: There was a regular rate and rhythm without any murmurs, gallops, rubs. Peripheral pulses were 2+ and symmetric. ABDOMEN: Soft and nontender with normal bowel sounds. No ascites was noted. MUSCULOSKELETAL: R hip tenderness, flexed at the hips and legs tied around a pillow. Distal pulses +2. EXTREMITIES: No cyanosis, clubbing or edema. NEUROLOGIC: Alert and oriented x 3. Normal affect. Gait was normal. Normal tone. Sensation to touch was normal. Objective Labs Result Diagrams: 11/02/19 05:15 11/02/19 05:15 Labs: Laboratory Results - last 24 hr 11/02/19 11/02/19 11/02/19 05:15 05:15 05:15 WBC 9.9 RBC 4.60 Hgb 13.9 Hct 40.8 L MCV 88.6 MCH 30.2 MCHC 34.1 RDW 13.7 Plt Count 222 Neut % (Auto) 68.3 D Lymph % (Auto) 15.7 L [place] % (Auto) 15.8 H Eos % (Auto) 0.1 L Baso % (Auto) 0.1 Neut # (Auto) 6700 Lymph # (Auto) 1600 [place] # (Auto) 1600 H Eos # (Auto) 0 Baso # (Auto) 0 Sodium 138 Potassium 4.4 Chloride 106 Carbon Dioxide 27 BUN 13 Creatinine 1.16 Estimated GFR > 60.0 BUN/Creatinine Ratio 11.2 Glucose 121 H Hemoglobin A1c 5.2 Calcium 8.9 Magnesium 2.1 Total Bilirubin 3.2 H Conjugated Bilirubin 0.0 Unconjugated Bilirubin 3.1 H AST 31 ALT 46 Alkaline Phosphatase 61 Total Protein 6.4 Albumin 3.8 Globulin 2.6 Albumin/Globulin Ratio 1.5 TSH 11/02/19 05:15 WBC RBC Hgb Hct MCV MCH MCHC RDW Plt Count Neut % (Auto) Lymph % (Auto) [place] % (Auto) Eos % (Auto) Baso % (Auto) Neut # (Auto) Lymph # (Auto) [place] # (Auto) Eos # (Auto) Baso # (Auto) Sodium Potassium Chloride Carbon Dioxide BUN Creatinine Estimated GFR BUN/Creatinine Ratio Glucose Hemoglobin A1c Calcium Magnesium Total Bilirubin Conjugated Bilirubin Unconjugated Bilirubin AST ALT Alkaline Phosphatase Total Protein Albumin Globulin Albumin/Globulin Ratio TSH 2.90 Assessment & Plan Assessment & Plan narrative: Yair Barreto is a 54-year-old male with a past medical history of hypertension, no longer on medications, who presented after a mechanical fall landing on his right side complaining of severe right hip pain. He has a right femoral neck fracture that is mildly displaced and angulated, awaiting operative intervention later today. 1. Right femoral neck fracture, acute, present on admission -appreciate consultation from Orthopedic surgery, pending operative intervention later today. -NPO/IV fluids and pain control with Toradol and Dilaudid pending operative interventions today, he can resume a regular diet after the OR. -PT/OT have been ordered -likely pathologic given nature of ground level fall. His calcium is unremarkable, TSH was unremarkable at 2.9. Patient does have a history of vitamin-D deficiency this level is currently pending. 2. History of hypertension -has been off of pain medications but used to take lisinopril 10 mg. At this point blood pressure is mildly elevated likely in the setting of pain. Will continue to monitor and treat as necessary. -his EKG shows a mildly prolonged QT interval and will continue telemetry 3. Prolonged QT interval, present on admission -continue telemetry 4. Leukocytosis, acute, present on admisison, resolved -likely reactive in the setting of trauma, no other signs or symptoms of infection and resolve the following morning after admission. 5. Hyperbilirubinemia, present on admission -unclear etiology, patient has no current abdominal pain and this is an unconjugated hyperbilirubinemia. May represent Gilbert's disease. Will continue to monitor and obtain further workup if patient develops symptoms or continues to rise. Code: Full, as discussed with the patient Dispo: Admitted under inpatient status as his stay is expected to exceed 2 midnights. DVT: On hold given possible operative interventions, will resume chemical prophylaxis after likely operative interventions
--- NOTE | 2019-11-02 17:40 | PM.PREOP ---
Pre-operative Note COVID-19 COVID-19 status: Negative Result date/Date tested (Pos, Neg/Pending): 11/01/19 Interval Note History & Physical reviewed/Exam performed by Physician: Yes Changes to H&P: No H&P completed within 30 days and has changed as indicated here:: Surgical consent was reviewed with the patient. Risks and benefits were discussed. Risks include but are not limited to: infection, dislocations, damage to local structures such as vessels and nerves, need for future surgeries, DVT, PE, , incomplete relief of symptoms, etc. Patient demonstrates understanding of the risks and benefits and wishes to proceed. Plan for right anterior total hip arthroplasty for treatment of a displaced intra-capsular right femoral neck fracture.
[2019-11-02] MEDS: LACTATED RINGERS 1,000 ML 42 ML IV ×2 (18:00→19:43)
[2019-11-02] MEDS: CEFAZOLIN 2 GM/100 ML FROZ.PIGGY IV (18:28)
[2019-11-02] MEDS: TRANEXAMIC ACID 1,000 MG VIAL 1000 MG IV (19:15)
--- NOTE | 2019-11-02 19:26 | SUR.OPER ---
Supine, head on pillow, torso on pink pad positioner. Iliac crest at flex of foot end of table. Gel roll under operative hip. Both arms secured on arm boards <90 degrees abduction.
[2019-11-02] MEDS: ROPIVACAINE 0.5% PF 20ML 60 ML, MORPHINE 4 MG, KETOROLAC 30 MG INJ (20:43)
--- NOTE | 2019-11-02 21:17 | P.OP_ITS ---
Operative Date/Time/Diagnoses Date of procedure: 11/02/19 Time of procedure: 21:17 Pre-op diagnosis: right displaced intra-capsular femoral neck fracture Post-op diagnosis: same Procedure & Clinicians Procedure: right anterior total hip arthroplasty Same procedure as scheduled: Yes Indications: Displaced right intra-capsular femoral neck fracture Surgeon: Clay Freitas Dredge Master: Milagro Malave Anesthesia Type: General Operative Notes Findings: Displaced right femoral neck intracapsular fracture, mild degenerative changes seen to the femoral head and acetabulum overall minimal arthritic valenzuela ges. Closure Type: primary Specimen(s): other (Femoral head sent to pathology) Prosthetic devices, grafts, tissues, transplants, or devices: Beavers and Nephew 60 mm R3 cup Beavers and Nephew anthology size 7 standard offset femoral stem 60 mm x 36 mm neutral polyethylene liner 1x 25 mm screw 1x 20 mm screw 36+ 8 bio lock ceramic head Estimated Blood Loss (mL): 300 Blood products transfused: none Procedure in detail: Patient was met in the preoperative holding area where the site and side of surgery were marked by MD. All last minute questions were answered. Informed surgical consent was reviewed and signed. In depth discussion of the risks and benefits of the procedure were discussed with the patient and he agreed to proceed with a right anterior total hip arthroplasty. Patient was then brought back into the operating room where he was induced under general anesthesia and transferred onto the [place] table. Both feet were placed in [place] table boots. At this point fluoroscopy was brought in to get an overall reduction of the right hip to allow for easier anatomical approach. The right hip was then prepped and draped in normal sterile fashion. A surgical time-out was performed verifying the site and side of surgery as well as the name of the patient. A 7 cm long incision was made in the skin using #10 blade centered approximately 2 cm distal and 1 cm lateral to the ASIS aiming towards the fibular head. Electrocautery was used to gain hemostasis and dissect down to the level of the tensor fascia. A new #10 blade was then used to incise the tensor fascia. An Allis clamp was placed on the medial leaflet of the tensor fascia and the tensor muscle was retractedlaterally. A Cobra was then placed over the superior aspect of the femoral neck. A Meyerding retractor was then placed over the lateral aspect of the rectus femoris retracted medially and electrocautery was used to coagulate the ascending femoral circumflex vessels. A 2nd cobra was then placed over the inferior femoral neck and a bent Hohmann was placed over the anterior wall the acetabulum giving us good exposure to the anterior capsule. Inverse T shaped capsulotomy was then performed. The superior and inferior leaflets were then tagged with a FiberWire suture. Capsule was then released off the superior neck and inferior neck sequentially and the cobras were placed intracapsular. At this point good visualization of the the femoral neck as well as the fracture site was achieved. A reciprocating saw was used to make a femoral neck cut. The femur was then externally rotated 45? and a corkscrew was used to remove the femoral head. The head was then sent to pathology. The labrum and pulvinar was then removed with electrocautery and we began reaming with a 45 mm Reamer taking care not to over medialize. We then began up sizing by 2s until we got to a 57 mm Reamer and then subsequently reamed to 58 mm and then 59 mm with good resistance. A 60 mm R3 cup was then selected and malleted into place under fluoroscopic guidance. Two screws were subsequently placed a 25 mm and 20 mm screw. A 60 mm x 36 mm neutral polyethylene liner was then placed into the socket and malleted into place. I verified that it was fully seated by checking the tabs were flush with the acetabular cup rim. At this point we then turned our attention to the femoral side. The femoral elevator hook was placed in the posterior aspect of the femur. The leg was then externally rotated to 120? extended to the floor and adducted. A bent Hohmann was placed over the superior aspect of the superior leaflet of the capsule and the capsule was released off the inner shoulder of the greater trochanter giving us exposure the short external rotators. A small release the short external rotators was performed allowing the femur to come up into the incision. Elevator hook was then elevated further. A Francois retractor was then placed over the medial calcar giving us good exposure to the femoral neck. A canal finder was used to find center of the canal followed by chili pepper broach followed by a size 1 broach followed by size 3 and 5 broach. I then broached to a size 6 and calcar planed off this broach. There was a little bit of rotational instability with a size 6 broach size 7 broach was then selected and placed. A standard offset trial neck was then selected and a 36+ 0 head was placed onto the trial and the hip was reduced. There was found to be lot of shuck in the system and fluoroscopy confirmed that we were short on the operative side. The hip was then dislocated and a 36+ 8 trial head was then selected and reduced. Hip was brought through range of motion including external rotation to 120? without dislocation and external rotation to 90? with extension to the floor without dislocation. Fluoroscopy was used to determine leg lengths which appeared radiographically even with 36+ 8 head. Hip was then dislocated the trial components were removed. The calcar was thoroughly interrogated and no calcar fractures were appreciated. A size 7 stem standard offset was selected and malleted into place. A 36+ 8 biolox ceramic head was then placed on the trunnion and malleted into place. The hip was reduced a final time. Final fluoroscopic views were obtained. Local injection was infiltrated into the superior and inferior leaflets of the capsule as well as the tensor muscle. The wound was then soaked in Betadine and allowed to sit for 5 minutes before being thoroughly irrigated with copious normal saline. The capsule was then repaired with a running Ethibond suture and the FiberWire tag sutures were removed. The tensor fascia was then repaired using 1. Vicryl in a running fashion. Subcutaneous tissue was then closed with 2 Vicryl in interrupted fashion followed by peggy on skin followed by an Aquacel dressing. Complications: none Post-operative Condition: stable Disposition: PACU Plan for aftercare: Femoral head sent to pathology due to relatively low level trauma resulting in a femoral neck fracture, protected weight bearing RLE for 6 weeks, 24 hours post-op abx, 6 weeks ASA 81mg BID for DVT prophylaxis, anterior hip precautions
--- NOTE | 2019-11-02 21:49 | SUR.PHASEI ---
Pt slow to wake up, initially needing chin support for patency of airway. As pt became more wakeful able to breathe on own with o2 via nasal cannula. Pt now awake, taking ice and denies pain. Report called to FRAN Mart
[2019-11-02] MEDS: LACTATED RINGERS 1,000 ML 125 ML IV (22:27)
--- NOTE | 2019-11-02 22:37 | PC.NURSE ---
pt arrived at 2213, A&OX3. 2L 98%. Rt hip aquacel dressing cdi. pedal pulses palpable. cap refill < 2 sec. scds on. IVF. Sukhi patent.call light in reach. bed alarm active.
[2019-11-03] VITALS (14 sets, daily range): BP systolic 116–149; BP diastolic 56–87; PULSE 82–98; RESP 14–18; TEMP 36.3–37.5; O2SAT 97–100
[2019-11-03] MEDS: CEFAZOLIN 2 GM/100 ML FROZ.PIGGY IV ×2 (01:55→09:04)
--- NOTE | 2019-11-03 03:09 | PC.NURSE ---
Seen and assessed at 0000. Is alert and oriented. Breath sounds CTA; on 2L/min oxygen per NC at shift change with sat of 99% so decreased to 1L/min and now at 98%. HRR but tachy at 100 bpm with telemetry reading of ST w/BBB. BP trending high and is 141/75. Denies nausea. BT active in left quads and hypoactive in right; denies flatus. Indwelling catheter is patent; urine is clear, dark yellow. Needing assistance to reposition q2h. Gait not assessed as has not yet been out of bed as had late surgery. Aquacel dressing to right anterior hip is CDI. CMS is intact bilaterally. Wearing bilateral calf SCD's. Denies pain. Fall risk score is high and bed alarm is activated.
[2019-11-03 06:17] LABS: Add Manual Diff / Slide Review NO; Basophils Absolute Auto 0 /uL (0-100); Eosinophils Absolute Auto 0 /uL (0-450); Hematocrit 35.4 % (41-53); Lymphocytes Absolute Auto 700 /uL (1100-4500); Lymphocytes Percent Auto 5.9 % (25-40); Mean Corpuscular HGB Conc 33.9 % (30-36); Mean Corpuscular Hemoglobin 29.9 PG (26-34); Mean Corpuscular Volume 88.2 fL (80-100); Monocytes Absolute Auto 1200 /uL (0-900); Monocytes Percent Auto 10.5 % (3-14); Neutrophils Absolute Auto 9300 /uL (1500-7000); Neutrophils Percent Auto 83.6 % (50-75); Platelet Count 214 X10^3/uL (150-400); Red Blood Cell Count 4.01 X10^6/uL (4.5-5.9); Red Cell Distribution Width 13.2 % (11.6-14.8); White Blood Cell Count 11.1 X10^3/uL (4.5-11.0)
[2019-11-03] MEDS: LACTATED RINGERS 1,000 ML 125 ML IV (06:22)
[2019-11-03 06:29] LABS: Alanine Aminotransferase 33 IU/L (<50); Albumin Globulin Ratio 1.2 (1.0-2.8); Alkaline Phosphatase 53 U/L (38-126); Aspartate Aminotransferase 33 IU/L (17-59); BUN Creatinine Ratio 11.7 (6-22); Bilirubin Total 1.8 mg/dL (0.2-1.3); Bilirubin Unconjugated 1.8 mg/dL (0.0-1.1); Blood Urea Nitrogen 11 mg/dL (9-20); Calcium 8.2 mg/dL (8.4-10.2); Carbon Dioxide 27 mmol/L (22-32); Chloride 105 mmol/L (98-107); Estimated Glomerular Filt Rate > 60.0 mL/min (>60); Globulin 2.5 g/dL (1.7-4.1); Glucose 142 mg/dL (70-100); HEMOLYSIS < 15 (0-50); Magnesium 1.9 mg/dL (1.6-2.3); Potassium 3.9 mmol/L (3.4-5.1); Sodium 138 mmol/L (137-145); Total Protein 5.5 g/dL (6.3-8.2)
[2019-11-03] MEDS: ACETAMINOPHEN 325 MG TABLET 650 MG PO ×3 (08:56→20:15)
[2019-11-03] MEDS: DOCUSATE 100 MG CAPSULE PO ×2 (08:56→20:15)
[2019-11-03] MEDS: ASPIRIN EC 81 MG TABLET PO ×2 (08:56→20:15)
[2019-11-03] MEDS: OXYCODONE IR 5 MG TABLET PO ×3 (09:07→20:15)
--- NOTE | 2019-11-03 10:27 | PT.IIE ---
Current Diagnoses Pathological fracture, right femur, initial encounter for fracture (11/01/19) Surgery Performed Operation Date: 11/02/19 17:15 Actual Procedures p Total Hip Arthroplasty/Anterior Approach(Right) - Clay Freitas MD Surgical History (Last Reviewed 11/01/19 @ 17:39 by Clay Freitas MD) Anesthesia (Resolved) History of third molar tooth extraction Status post hernia repair Medical History (Last Reviewed 11/01/19 @ 17:39 by Clay Freitas MD) GERD (gastroesophageal reflux disease) (Chronic ~1994) Hearing loss (Chronic ~2014) Hemorrhoid (Chronic) Hypertension (Chronic ~2011) Kidney stones (Chronic ~1993) Migraines (Chronic) Tinnitus (Chronic) Physical Therapy Inpatient Evaluation/Re-Eval M1 PT/OT-IP Prior Functional Status Start: 11/03/19 11:56 Freq: NEEDED Status: Active Protocol: Document 11/03/19 10:27 AB (Rec: 11/03/19 12:07 AB [id number]) Medical Review Prior Functional Status Medical History Reviewed Yes Communication able to make needs known Mobility and Gait pt stated that he is independent with all mobilities and ambulation without AD Social History Household Members none Living Arrangements House Number of Floors (Floors) Two Floors Number of Stairs To Enter/Railing? 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 M2 PT-IP Current Condition Start: 11/03/19 11:56 Freq: NEEDED Status: Active Protocol: Document 11/03/19 10:27 AB (Rec: 11/03/19 12:07 AB [email or web address]) Physical Therapy Current Condition Current Condition Evaluation Date 11/03/19 Treatment Diagnosis R femoral neck fx s/p KEERTHI anterior approach; difficulty in walking Onset Date 11/01/19 Precautions Anterior Hip Precautions No Hip Extension,No Hip External Rotation Weight Bearing Status Weight Bearing Status Partial Weight Bearing Allowed Weight Bearing Amount (enter % RLE less than 50% weight or #) (%) bearing per clarification order by PA M3 PT-IP Subjective Start: 11/03/19 11:56 Freq: NEEDED Status: Active Protocol: Document 11/03/19 10:27 AB (Rec: 11/03/19 12:[facility] Subjective Physical Therapy Visit Type Type Initial Evaluation Visit Start Time 10:27 Visit Stop Time 11:05 Total Visit Minutes 38 Number of QUANTITATIVE CONSULTANT Visits 0 Physical Therapy Visit Comments Patient Comments pt is agreeable to do PT Therapy Pain Assessment Pain When Pain Assessed During Mobility Pain Present Pain Present Pain Reported Location Right Groin Scale Used pain scale not stated Pain Behaviors Calling Out,Facial Grimacing, Guarding,Holding Area, Restlessness,Wincing Pain Management Techniques Apply Cold,Distraction, Modification of Treatment,Re- positioning,Timing of Activity with Medications M4 PT-IP Mobility and Gait Start: 11/03/19 11:56 Freq: NEEDED Status: Active Protocol: Document 11/03/19 10:27 AB (Rec: 11/03/19 12:07 [email or web address]) PT-Bed Mobility Assessment Supine to Sit Supine to Sit Moderate Assistance,1 Person Assistance Scooting Scooting to Edge of Bed Contact Guard Assistance PT-Transfer Assessment Sit to and From Stand Sit to and from Stand Minimal Assistance,1 Person Assistance,Use of Upper Extremities Equipment Transfer Assistive Device Gait Belt,Front Wheeled Walker Orthotic/Prosthetic Devices or Brace: No Transfers Transfer Destination Chair Transfer Technique Stand Step Pivot Transfer Ability Level of Assist Minimal Assistance,1 Person Assistance,Use of Upper Extremities Comments Mobility Comments educated pt on hip precautions and PWB restriction on RLE. pt completed bed mobility supine to sit mod A and cues. pt was able to sit on EOB SBA . educated on sit to stand while maintaining less than 50 % PWB on RLE. pt completed min A and cues and was able to step pivot transfer while maintain PWB on RLE. pt refused further ambulation. positioned pt on chair. call light and table placed within reach. Gait Assessment Comments Gait Comments refused ambulation PT-Balance Assessment Sitting Balance and Reactions Static Sitting Balance Ability Good Dynamic Sitting Balance Ability Good Standing Balance and Reactions Static Standing Balance Ability Fair Dynamic Standing Balance Ability Fair Device Used FWW M5 PT-IP Objective Assessments Start: 11/03/19 11:56 Freq: NEEDED Status: Active Protocol: Document 11/03/19 10:27 AB (Rec: 11/03/19 12:07 [email or web address]) Orientation Orientation/Cognition Level of Alertness Alert Orientation Name,Place,Situation Language Function Ability No Deficits Noted Safety Awareness Understands Safety Issues Memory Description No Deficits Noted Gross Range of Motion Lower Extremity ROM Assessment Within Functional Limits Strength Lower Extremity Strength Assessment Right Impaired Hip 3-/5 Knee 3+/5 Coordination Assessment Gross Coordination Gross Coordination WNL Muscle Tone Muscle Tone WNL Yes M6 PT-IP Treatment Start: 11/03/19 11:56 Freq: NEEDED Status: Active Protocol: Document 11/03/19 10:27 AB (Rec: 11/03/19 12:07 AB [id number]) Physical Therapy Treatment Exercises Exercises Heel Slides Education Education Provided Precautions,Weight Bearing Status,Post-Op Packet,Safety M7 PT-IP Assessment and Plan Start: 11/03/19 11:56 Freq: NEEDED Status: Active Protocol: Document 11/03/19 10:27 AB (Rec: 11/03/19 12:07 AB [id number]) PT Summary Assessment and Plan Potential Rehabilitation Potential Good Status of Condition at Evaluation Stable Summary Impairments Pain,ROM,Strength,Balance, Coordination,Sensation,Tone, Cognition,Bed Mobility, Transfers,Gait,Activity Tolerance Assessment Summary pt requiring min to mod A with mobility using FWW. has weight bearing restriction on RLE to less than 50% and will be the main limiting factor to progress and mobility independence. pt has 14 steps to get into the main level of the house and at this time is not appropriate to complete due to weight bearing restriction. Pt may need to go to SNF at this time. Goals Bed Mobility Goal Independent Transfer Goal Standby Assistance,Front Wheeled Walker Gait Goal Standby Assistance,Front Wheel Walker Gait Distance 50 Other Goals up/down 14 steps L rail less than 50% PWB on RLE. Days to Meet Goals 10 Frequency of Treatment Frequency Of Treatment Twice a Day Treatment Plan Physical Therapy Treatment Plan Bed Mobility Training,Transfer Training,Gait Training, Therapeutic Exercise,Balance Retraining,Post Op Education, Discharge Planning,Hot or Cold Pack,Neuromuscular Re-ed, Coordination Retraining,Manual Therapy Other Recommendations and Next Treatment transfers, ambulation Focus Recommendations To Nursing Amount of Assist Needed 1 Person Assist Discharge Recommendations PT Discharge Recommendations SNF Rehab Transportation Needs at Discharge Wheelchair/Cabulance
--- NOTE | 2019-11-03 11:49 | PM.PN.1 ---
Subjective Subjective Date Patient Seen: 11/03/19 Time Patient Seen: 11:50 Interval history: Now POD #1 from right anterior KEERTHI for displaced intra-capsular femoral neck fracture. Doing well. Pain is controlled. Working with PT. Exam Vital Signs (past 8 hours): - 11/03/19 04:00 11/03/19 06:19 11/03/19 09:00 Temperature 97.4 F L 98.9 F Pulse Rate 98 H 83 Respiratory Rate 14 16 Blood Pressure 134/81 124/87 Pulse Oximetry 100 100 100 11/03/19 10:00 Temperature Pulse Rate Respiratory Rate Blood Pressure Pulse Oximetry 100 Oxygen Delivery Method Room Air Oxygen Flow Rate 0 Narrative Exam Narrative: Dressing c/d/i no stirke through. NV intact in RLE, 4/5 HF and KE likely secondary to pain. Objective Labs Result Diagrams: 11/03/19 05:05 11/03/19 05:05 Labs: Laboratory Results - last 24 hr 11/03/19 11/03/19 05:05 05:05 WBC 11.1 H RBC 4.01 L Hgb 12.0 L Hct 35.4 L MCV 88.2 MCH 29.9 MCHC 33.9 RDW 13.2 Plt Count 214 Neut % (Auto) 83.6 H Lymph % (Auto) 5.9 L [place] % (Auto) 10.5 Eos % (Auto) 0.0 L Baso % (Auto) 0.0 Neut # (Auto) 9300 H Lymph # (Auto) 700 L [place] # (Auto) 1200 H Eos # (Auto) 0 Baso # (Auto) 0 Sodium 138 Potassium 3.9 Chloride 105 Carbon Dioxide 27 BUN 11 Creatinine 0.94 Estimated GFR > 60.0 BUN/Creatinine Ratio 11.7 Glucose 142 H Calcium 8.2 L Magnesium 1.9 Total Bilirubin 1.8 H Conjugated Bilirubin 0.0 Unconjugated Bilirubin 1.8 H AST 33 ALT 33 Alkaline Phosphatase 53 Total Protein 5.5 L Albumin 3.0 L Globulin 2.5 Albumin/Globulin Ratio 1.2 Assessment & Plan Assessment & Plan narrative: Patient is a 54 yo male now POD#1 from right anteiror KEERTHI for a displaced intra-capsular femoral neck fracture. Overall he is doing well. I spoke with him about precautions and weight bearing as well as post-op expectations. All questions were answered. - Protected weight bearing RLE (FWW) - Anterior hip precautions - ASA 81mg BID for 6 weeks for DVT prophylaxis - Pathology femoral head - pending - Tylenol and Oxycodone for pain control - Ok to shower over dressings - Leave dressings in place until post-op visit Time Spent With Patient Time with patient: 15-24 minutes
--- NOTE | 2019-11-03 12:01 | P.PN_ITS ---
Subjective Subjective Date Patient Seen: 11/03/19 Time Patient Seen: 12:01 Interval history: Yair Barreto is a 54-year-old male with a past medical history of hypertension, no longer on medications, who presented after a mechanical fall landing on his right side complaining of severe right hip pain and ultimately suffered a right femoral neck fracture. He will underwent operative interventions with orthopedic surgery last evening. He is now getting up with physical therapy, and was able to take a couple of steps today. His pain was adequately controlled this morning, and he denied any further complaints including chest pain, palpitations, shortness of breath, fever, chills. Exam Vital Signs (past 8 hours): - 11/03/19 06:19 11/03/19 09:00 11/03/19 10:00 Temperature 98.9 F Pulse Rate 83 Respiratory Rate 16 Blood Pressure 124/87 Pulse Oximetry 100 100 100 Oxygen Delivery Method Room Air Oxygen Flow Rate 0 Narrative Exam Narrative: GENERAL APPEARANCE: Well developed, well nourished, mildly anxious. SKIN: Inspection of the skin reveals no rashes, ulcerations or petechiae. HEENT: Normocephalic atraumatic, extraocular muscles are intact, oropharynx is clear and mucous membranes are moist, neck is supple without adenopathy NECK: Supple and symmetric. There was no thyroid enlargement, and no tenderness, or masses were felt. CHEST: Normal AP diameter and normal contour without any kyphoscoliosis. LUNGS: Auscultation of the lungs revealed no wheezes, rhonchi, or rales. CARDIOVASCULAR: There was a regular rate and rhythm without any murmurs, gal lops, rubs. Peripheral pulses were 2+ and symmetric. ABDOMEN: Soft and nontender with normal bowel sounds. No ascites was noted. MUSCULOSKELETAL: Right hip dressings clear dry and intact. No joint effusions. EXTREMITIES: No cyanosis, clubbing or edema. NEUROLOGIC: Alert and oriented x 3. Normal affect. Normal tone. Sensation to touch was normal. Objective Labs Result Diagrams: 11/03/19 05:05 11/03/19 05:05 Labs: Laboratory Results - last 24 hr 11/03/19 11/03/19 05:05 05:05 WBC 11.1 H RBC 4.01 L Hgb 12.0 L Hct 35.4 L MCV 88.2 MCH 29.9 MCHC 33.9 RDW 13.2 Plt Count 214 Neut % (Auto) 83.6 H Lymph % (Auto) 5.9 L [place] % (Auto) 10.5 Eos % (Auto) 0.0 L Baso % (Auto) 0.0 Neut # (Auto) 9300 H Lymph # (Auto) 700 L [place] # (Auto) 1200 H Eos # (Auto) 0 Baso # (Auto) 0 Sodium 138 Potassium 3.9 Chloride 105 Carbon Dioxide 27 BUN 11 Creatinine 0.94 Estimated GFR > 60.0 BUN/Creatinine Ratio 11.7 Glucose 142 H Calcium 8.2 L Magnesium 1.9 Total Bilirubin 1.8 H Conjugated Bilirubin 0.0 Unconjugated Bilirubin 1.8 H AST 33 ALT 33 Alkaline Phosphatase 53 Total Protein 5.5 L Albumin 3.0 L Globulin 2.5 Albumin/Globulin Ratio 1.2 Assessment & Plan Assessment & Plan narrative: Yair Barreto is a 54-year-old male with a past medical history of hypertension, no longer on medications, who presented after a mechanical fall landing on his right side complaining of severe right hip pain. He has a right femoral neck fracture that is mildly displaced and angulated, awaiting operative intervention later today. 1. Right femoral neck fracture, acute, present on admission -appreciate consultation from Orthopedic surgery, Dr. Freitas, s/p right anterior KEERTHI with orthopedics on 11/01. -continue PT/OT, hopeful for discharge home although patient lives alone. -likely pathologic given nature of ground level fall. His calcium is unremarkable, TSH was unremarkable at 2.9. Patient does have a history of vitamin-D deficiency this level is currently pending. 2. History of hypertension -has been off of pain medications but used to take lisinopril 10 mg.On admission BP was mildly elevated likely in the setting of pain. Will continue to monitor and treat as necessary. -his EKG shows a mildly prolonged QT interval on admission, no acute events on telemetry. Can likely discontinue tomorrow. 3. Prolonged QT interval, present on admission -continue telemetry, no events thus far. 4. Leukocytosis, acute, present on admisison, resolved -likely reactive in the setting of trauma, no other signs or symptoms of infection and resolve the following morning after admission. 5. Hyperbilirubinemia, present on admission, improved. -unclear etiology, patient has no current abdominal pain and this is an unconjugated hyperbilirubinemia. This improved to 1.8 today from 3 yesterday. Code: Full, as discussed with the patient Dispo: Admitted under inpatient status as his stay is expected to exceed 2 midnights. pending PT/OT evaluations, hopeful for discharge home vs SNF for cont inue rehab. DVT: ASA BID per orthopedics. COVID-19 COVID-19 status: Negative
--- NOTE | 2019-11-03 13:20 | CM.DPC ---
Addendum entered by Karen Mazariegos R.N. 11/03/19 15:50: Left another message for Britany Lopez, [facility] case packer and sealer, confirmed with Nellie, at [facility], that Britany is working today. Sent over latest P.T and O.T. note. Spoke to patient again about [facility], and his concerns about COVID. Let him know that they are cautious about testing and quaranteen at the facility. Addendum entered by Karen Mazariegos R.N. 11/03/19 13:58: Left a message with Britany Lopez at [facility], regarding patient needing skilled rehab. Faxed over today's P.T. note to [facility]. Will fax over next note when it is available. Original Note: DCP Cont: Checked in with patient. He was sitting up in his chair. He had worked with P.T. this morning. He is expected to work with them again. Discussed group home over at [facility] and let him know that he will be excepted. He stated, he is aware, he wants to see how he does with P.T. again today. P: DCP to continue to follow. Plan is for [facility] versus home. Went ahead and completed PASSR as well.Will fax P.T. notes to [facility], and update [facility] case packer and sealer. Nereida at [facility] stated that she can accept as long as [facility] approves, and COVID is complete. Karen Mazariegos RN/[facility]
--- NOTE | 2019-11-03 13:58 | PT.IPTN ---
Current Diagnoses Pathological fracture, right femur, initial encounter for fracture (11/01/19) Surgery Performed Operation Date: 11/02/19 17:15 Actual Procedures p Total Hip Arthroplasty/Anterior Approach(Right) - Clay Freitas MD Physical Therapy Treatment Note M2 PT-IP Current Condition Start: 11/03/19 11:56 Freq: NEEDED Status: Active Protocol: Document 11/03/19 10:27 AB (Rec: 11/03/19 12:07 AB [id number]) Physical Therapy Current Condition Current Condition Evaluation Date 11/03/19 Treatment Diagnosis R femoral neck fx s/p KEERTHI anterior approach; difficulty in walking Onset Date 11/01/19 Precautions Anterior Hip Precautions No Hip Extension,No Hip External Rotation Weight Bearing Status Weight Bearing Status Partial Weight Bearing Allowed Weight Bearing Amount (enter % RLE less than 50% weight or #) (%) bearing per clarification order by PA M3 PT-IP Subjective Start: 11/03/19 11:56 Freq: NEEDED Status: Active Protocol: Document 11/03/19 13:38 SP (Rec: 11/03/19 14:57 SP [id number]) Subjective Physical Therapy Visit Type Type Treatment Note Visit Start Time 13:38 Visit Stop Time 13:58 Total Visit Minutes 20 Number of SEXTON HELPER Visits 1 Physical Therapy Visit Comments Patient Comments Pt agreeable to working with PT, I can't get around very well. Therapy Pain Assessment Pain When Pain Assessed During Mobility Pain Present Pain Present Pain Reported Location Right Groin Intensity 4 Scale Used Numeric (0 - 10) Pain Behaviors Facial Grimacing Pain Management Techniques Modification of Treatment,Re- positioning,Timing of Activity with Medications M4 PT-IP Mobility and Gait Start: 11/03/19 11:56 Freq: NEEDED Status: Active Protocol: Document 11/03/19 13:38 SP (Rec: 11/03/19 14:57 SP [id number]) PT-Bed Mobility Assessment Sit to Supine Sit to Supine Moderate Assistance,1 Person Assistance,Bedrails PT-Transfer Assessment Sit to and From Stand Sit to and from Stand Maximum Assistance,1 Person Assistance,Use of Upper Extremities Equipment Transfer Assistive Device Gait Belt,Front Wheeled Walker Orthotic/Prosthetic Devices or Brace: No Transfers Transfer Destination Bed Transfer Technique Stand Step Pivot Transfer Ability Level of Assist Minimal Assistance,1 Person Assistance,Use of Upper Extremities Comments Mobility Comments Pt sitting up in chair when arrived. Educated patient on hip precautions and PWB restrictions on RLE with imporance of allowing 50% WB within tolerance. Cued patient to scoot to EO chair first while used BUE, Sit> stand Max A of 1 for forward trunk wt shift using BUE and support for hand transition with cuing for LE extension into standing, pt demonstrates NWB on RLE with encouragement to allow WB improved to TTWB. Once in standing cued for allow R heel contact on floor and even wt distribution then slow wt shift f/b, Min A using FWW heavy BUE. Step hop on LLE, encouraged RLE WB with slight TTWB demonstrated. Stand>sit Min A with cuing for UE reaching back and slow descent. Lateral scoot up EOB BLE and BUE, Mod A multiple times. sitting>supine Mod A for LE support together. Instructed LE exercises, see details. Pt able to reposition self in bed. Provided pillow support under thighs and lateral RLE to assist maintain no ER precautions. SCDs donned to assist circulation with feedback alternating compressions different that earlier and all needs and call light in reach. Bed alarmed before left. Pt declined CP stating, not sure helps. Pt reported no increase in pain during tx. SEXTON HELPER notified nursing of SCD comments to assess for proper performance with verbal confirmation. Gait Assessment Comments Gait Comments refused ambulation PT-Balance Assessment Sitting Balance and Reactions Static Sitting Balance Ability Good Dynamic Sitting Balance Ability Good Standing Balance and Reactions Static Standing Balance Ability Fair Dynamic Standing Balance Ability Fair Device Used FWW M5 PT-IP Objective Assessments Start: 11/03/19 11:56 Freq: NEEDED Status: Active Protocol: Document 11/03/19 10:27 AB (Rec: 11/03/19 12:07 AB [id number]) Orientation Orientation/Cognition Level of Alertness Alert Orientation Name,Place,Situation Language Function Ability No Deficits Noted Safety Awareness Understands Safety Issues Memory Description No Deficits Noted Gross Range of Motion Lower Extremity ROM Assessment Within Functional Limits Strength Lower Extremity Strength Assessment Right Impaired Hip 3-/5 Knee 3+/5 Coordination Assessment Gross Coordination Gross Coordination WNL Muscle Tone Muscle Tone WNL Yes M6 PT-IP Treatment Start: 11/03/19 11:56 Freq: NEEDED Status: Active Protocol: Document 11/03/19 13:38 SP (Rec: 11/03/19 14:57 SP [id number]) Physical Therapy Treatment Exercises Exercises Ankle Pumps,Gluteal Sets,Quad Sets,Heel Slides,Seated Knee Flexion/Extension Education Education Provided Precautions,Weight Bearing Status,Post-Op Packet,Safety M7 PT-IP Assessment and Plan Start: 11/03/19 11:56 Freq: NEEDED Status: Active Protocol: Document 11/03/19 13:38 SP (Rec: 11/03/19 14:57 SP [id number]) PT Summary Assessment and Plan Potential Rehabilitation Potential Good Status of Condition at Evaluation Stable Summary Impairments Pain,ROM,Strength,Balance, Coordination,Sensation,Tone, Cognition,Bed Mobility, Transfers,Gait,Activity Tolerance Assessment Summary pt requiring mod- Max A with mobility using FWW. has weight bearing restriction on RLE to less than 50% and will be the main limiting factor to progress and mobility independence, encouraged to allow up to 50% WB throught RLE. pt has 14 steps to get into the main level of the house and at this time is not appropriate to complete due to weight bearing restriction. Pt may need to go to SNF at this time. Goals Bed Mobility Goal Independent Transfer Goal Standby Assistance,Front Wheeled Walker Gait Goal Standby Assistance,Front Wheel Walker Gait Distance 50 Other Goals up/down 14 steps L rail less than 50% PWB on RLE. Days to Meet Goals 10 Frequency of Treatment Frequency Of Treatment Twice a Day Treatment Plan Physical Therapy Treatment Plan Bed Mobility Training,Transfer Training,Gait Training, Therapeutic Exercise,Balance Retraining,Post Op Education, Discharge Planning,Hot or Cold Pack,Neuromuscular Re-ed, Coordination Retraining,Manual Therapy Other Recommendations and Next Treatment transfers, ambulation, stairs Focus when appropriate if tolerated Recommendations To Nursing Amount of Assist Needed 1 Person Assist Discharge Recommendations PT Discharge Recommendations SNF Rehab Transportation Needs at Discharge Wheelchair/Cabulance
--- NOTE | 2019-11-03 14:51 | OT.IP.EVAL ---
Current Diagnoses Pathological fracture, right femur, initial encounter for fracture (11/01/19) Surgery Performed Operation Date: 11/02/19 17:15 Actual Procedures p Total Hip Arthroplasty/Anterior Approach(Right) - Clay Freitas MD Past Medical History (Last Reviewed 11/01/19 @ 17:39 by Clay Freitas MD) GERD (gastroesophageal reflux disease) (Chronic ~1994) Hearing loss (Chronic ~2014) Hemorrhoid (Chronic) Hypertension (Chronic ~2011) Kidney stones (Chronic ~1993) Migraines (Chronic) Tinnitus (Chronic) Surgical History (Last Reviewed 11/01/19 @ 17:39 by Clay Freitas MD) Anesthesia (Resolved) History of third molar tooth extraction Status post hernia repair Occupational Therapy Inpatient Evaluation/Re-Eval M1 PT/OT-IP Prior Functional Status Start: 11/03/19 15:06 Freq: NEEDED Status: Active Protocol: Document 11/03/19 15:07 [facility] (Rec: 11/03/19 15:33 [facility] [id number]) Medical Review Prior Functional Status Medical History Reviewed Yes Communication able to make needs known Mobility and Gait pt stated that he is independent with all mobilities and ambulation without AD Activities of Daily Living and IADL's Completely independent with all ADl,IADl and 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 Social History Household Members none Living Arrangements House Number of Floors (Floors) Two Floors Number of Stairs To Enter/Railing? 1 step to enter 14 steps with L rail to main level of the house Home Environment Standard Height Toilet,Walk in Shower,Tub/Shower Home Equipment Hand Held Shower Additional Social History Comment Pt states can stay on the main level of the house but still has 14 steps to be able to get up. M2 OT-IP Current Condition Start: 11/03/19 15:06 Freq: Status: Active Protocol: Document 11/03/19 15:07 [facility] (Rec: 11/03/19 15:33 [facility] [id number]) Occupational Therapy Current Condition Current Condition Evaluation Date 11/03/19 Treatment Diagnosis Right femoral neck fracture s/ p L KEERTHI anterior Diagnosis Onset Date 11/01/19 Post Operative Precautions Anterior Hip Precautions No Hip Extension,No Hip External Rotation Weight Bearing Status Weight Bearing Status Partial Weight Bearing Allowed Weight Bearing Amount (enter % 50% PWB for RLE or #) (%) M3 OT- IP Subjective and Pain Start: 11/03/19 15:06 Freq: Status: Active Protocol: Document 11/03/19 15:07 [facility] (Rec: 11/03/19 15:33 [facility] [id number]) OT- Subjective Occupational Therapy Visit Type Type Initial Evaluation Visit Start Time 14:18 Visit Stop Time 14:51 Total Visit Minutes 33 Occupational Therapy Visit Comments Patient Comments Pt willing to get up for OT eval. Pt requesting more pain medication as pain level at 4 /10, nursing notified. Patient/Caregiver Goals Pt apprehensive about going to skilled rehab due to COVID concerns, case management notified. Pt however realizes unable to care for himself at this time and would be best to go to rehab. OT Pain Assessment Pain When Pain Assessed At Rest Pain Present Pain Present Pain Reported Location Right Groin Intensity 4 Scale Used Numeric (0 - 10) M4 OT- IP ADL's Start: 11/03/19 15:06 Freq: Status: Active Protocol: Document 11/03/19 15:07 [facility] (Rec: 11/03/19 15:33 [facility] [id number]) OT ADT-Sqan-Dcgzdug General Evaluation Self-Feeding Ability Independent OT ADL-Grooming General Evaluation Grooming Ability Standby Assistance Comments OT Grooming Comments Independent after set-up while in bed. OT ADL-Dressing General Eval Lower Body Dressing Ability Maximum Assistance Comments OT Dressing Comments Pt not able to do LB dressing especially for right LE as having to try to use left hand to lift up his right leg up. Pt needing MAX for all LB dressing needs. Initiated education of LB dressing equipment and pt able to try use of manual training teacher and socks aid in order to osiris/doff socks. Educated to pt when getting on pants/brief to put in his right LE first and take it out last. OT ADL-Toileting General Evaluation Toileting Ability Total Assistance Comments OT Toileting Comments Isbell in place. Pt would benefit from BSc at home. OT ADL-Bathing Comments OT Bathing Comments Not performed. Educated would be best for pt to have a shower chair and HHSP. M5 OT- IP IADL's Start: 11/03/19 15:06 Freq: Status: Active Protocol: Document 11/03/19 15:07 [facility] (Rec: 11/03/19 15:33 [facility] [id number]) OT-Instrumental Activities of Daily Living Home Safety Awareness Awareness of Need for Assistance at Home Good Awareness Ability to Problem Solve Emergency Able to Problem Solve Situations Medication Management Medication Management No Deficits Identified Money Management Money Management No Deficits Identified Meal Preparation Meal Preparation Comments At this time pt will need assist for all ADl and IADl needs due to his limited mobility and 50% PWb for RLE. M6 OT- IP Functional Cognition Start: 11/03/19 15:06 Freq: Status: Active Protocol: Document 11/03/19 15:07 [facility] (Rec: 11/03/19 15:33 [facility] [id number]) Cognitive Factors Limiting Selfcare Function Cognitive Ability Level of Alertness Alert Patient Orientation Name,Age,Birthday,Month,Date, Year,Day of Week,Place, Situation Attention Span Ability Capable of Focused Attention, Capable of Sustained Attention Ability to Follow Commands Able to Follow Multi-Step Commands Cognitive Comments Cognitive Assessment Comments Pt appears intact at this time for cognitive needs. OT- Vision and Hearing OT- Hearing Assessment OT- Hearing Assessment WFL OT- Vision Assessment Visual Acuity Glasses All The Time M7 OT- IP Mobility and Balance Start: 11/03/19 15:06 Freq: Status: Active Protocol: Document 11/03/19 15:07 [facility] (Rec: 11/03/19 15:33 [facility] [id number]) OT- Bed Mobility Assessment Supine to Sit Supine to Sit Assist Moderate Assistance,1 Person Assistance Sit to Supine Sit to Supine Assist Moderate Assistance,1 Person Assistance Scooting Scooting to Edge of Bed Contact Guard Assistance,1 Person Assistance OT-Transfer Assessment Sit to and From Stand Sit to and from Stand Moderate Assistance,1 Person Assistance Transfers Transfer Ability Minimal Assistance,1 Person Assistance Technique Transfer Destination Bed Devices Transfer Assistive Devices Gait Belt,Front Wheeled Walker Comments Mobility Comments Pt MODA to help move RLE into and out of the bed, MODA to stand with FWW. Pt to a couple side steps to the head of the bed mainly my use of arms on the FWW to lift himself up to help and drag/slide the RLE over. OT- Balance Assessment Sitting Balance and Reactions Static Sitting Balance Ability Normal Dynamic Sitting Balance Ability Good Standing Balance and Reactions Static Standing Balance Ability Poor M8 OT- IP Objective Assessments Start: 11/03/19 15:06 Freq: Status: Active Protocol: Document 11/03/19 15:07 [facility] (Rec: 11/03/19 15:33 [facility] [id number]) OT Gross Range of Motion Upper Extremity Range of Motion Assessment Within Functional Limits OT Strength Comments Strength Comments BUE 4/5 to 4-/5 from proximal to distal. M9 OT- IP Assessment and Plan Start: 11/03/19 15:06 Freq: Status: Active Protocol: Document 11/03/19 15:07 [facility] (Rec: 11/03/19 15:33 [facility] [id number]) OT Summary Assessment and Plan Potential Rehabilitation Potential Good Analytic Complexity at Evaluation Low Summary OT Impairments Pain,Strength,Functional Mobility,Grooming,Dressing, Toileting,Bathing,Toilet Transfers,Shower Transfers, Activity Tolerance Progress Towards Goals Slow Progress due to Pain,Slow Progress due to Medical Issues,Slow Progress due to Activity Tolerance Assessment Summary Pt low complexity. Pt had a fall while taking a ladder down the steps and now s/p R femoral neck fracture and RTHA anterior approach with 50% PWB for RLE. Pt main barriers are steps and has 14 steps to get into his house and now needing MAX A for LB dressing needs. Pt not close to his baseline and would benefit from skilled rehab prior to going home. Pt is motivated to get better. Continue acute OT to go over equipment needs and how to best follow anterior precautions for Adl and functional mobility needs. Goals Grooming Goal Independent Dressing Goal Independent Toileting Goal Independent Bathing Goal Independent Toilet Transfer Goal Independent Shower Transfer Goal Independent Patient/Caregiver Education Goal Demonstrate Post-Op Precautions Days to Meet Goals 20 Frequency of Treatment Frequency Of Treatment Once a Day Treatment Plan OT Treatment Plan ADL Training,Functional Mobility,Patient/Family Education,Discharge Planning Other Treatment Recommendations and Next Transfer to [facility]. Treatment Focus Discharge Recommendations OT Discharge Recommendations SNF Rehab Home Equipment Needs defer to SNF
[2019-11-03] MEDS: SODIUM CHLORIDE 0.9% FLUSH 10 ML IV (23:46)
[2019-11-04] VITALS (10 sets, daily range): BP systolic 129–144; BP diastolic 74–85; PULSE 84–90; RESP 16–20; TEMP 30–37.2; O2SAT 96–100
--- NOTE | 2019-11-04 00:29 | PC.NURSE ---
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 pt will call for pain meds. refused intervention for pain 05/09. call light in reach. bed alarm active. encouraged pt to drink more fluids. Sukhi had only 200 cc out.
[2019-11-04] MEDS: OXYCODONE IR 5 MG TABLET PO ×3 (02:07→12:00)
[2019-11-04 05:47] LABS: Add Manual Diff / Slide Review NO; Basophils Absolute Auto 0 /uL (0-100); Basophils Percent Auto 0.2 % (0-2); Eosinophils Absolute Auto 100 /uL (0-450); Eosinophils Percent Auto 0.6 % (2-4); Hematocrit 30.8 % (41-53); Hemoglobin 10.6 g/dL (13.5-17.5); Lymphocytes Absolute Auto 2700 /uL (1100-4500); Mean Corpuscular HGB Conc 34.6 % (30-36); Mean Corpuscular Hemoglobin 30.5 PG (26-34); Mean Corpuscular Volume 88.2 fL (80-100); Monocytes Absolute Auto 1400 /uL (0-900); Monocytes Percent Auto 16.1 % (3-14); Neutrophils Absolute Auto 4700 /uL (1500-7000); Neutrophils Percent Auto 53.1 % (50-75); Platelet Count 182 X10^3/uL (150-400); Red Blood Cell Count 3.49 X10^6/uL (4.5-5.9); Red Cell Distribution Width 13.5 % (11.6-14.8); White Blood Cell Count 8.8 X10^3/uL (4.5-11.0)
[2019-11-04 05:52] LABS: Alanine Aminotransferase 38 IU/L (<50); Albumin 2.7 g/dL (3.5-5.0); Albumin Globulin Ratio 1.1 (1.0-2.8); Alkaline Phosphatase 50 U/L (38-126); Aspartate Aminotransferase 66 IU/L (17-59); BUN Creatinine Ratio 15.8 (6-22); Bilirubin Total 1.4 mg/dL (0.2-1.3); Bilirubin Unconjugated 1.3 mg/dL (0.0-1.1); Blood Urea Nitrogen 18 mg/dL (9-20); Carbon Dioxide 31 mmol/L (22-32); Chloride 107 mmol/L (98-107); Estimated Glomerular Filt Rate > 60.0 mL/min (>60); Globulin 2.5 g/dL (1.7-4.1); Glucose 99 mg/dL (70-100); HEMOLYSIS < 15 (0-50); Magnesium 2.2 mg/dL (1.6-2.3); Potassium 4.2 mmol/L (3.4-5.1); Sodium 139 mmol/L (137-145); Total Protein 5.2 g/dL (6.3-8.2)
[2019-11-04] MEDS: ASPIRIN EC 81 MG TABLET PO ×2 (08:16→20:24)
[2019-11-04] MEDS: ACETAMINOPHEN 325 MG TABLET 650 MG PO ×3 (08:16→20:24)
[2019-11-04] MEDS: DOCUSATE 100 MG CAPSULE PO (08:16)
[2019-11-04 08:18] LABS: Vitamin D 25 Hydroxy (D3) 44.3 ng/mL (30.0-100.0)
[2019-11-04] MEDS: CALCIUM CARB/VIT D3 500/200 TABLET 1 EACH PO ×2 (08:20→16:51)
--- NOTE | 2019-11-04 09:03 | CM.DPC ---
Addendum entered by Lata Walton LPN 11/04/19 15:17: Called [facility] back now: was unable to speak with anyone in admissions: had to leave another vm for admissions Delmy, this time on her office phone. Will update pt now. Addendum entered by Lata Walton LPN 11/04/19 11:23: [facility]: [facility]: no available bed until next week. Addendum entered by Lata Walton LPN 11/04/19 11:11: Britany Beltran left a vm stating [facility] auth was now in place for [facility]. Will update Dr. Snyder so that COVID can be ordered. Have spoken again with pt to let him know that is another facility of his choice has not accepted him by time of d/c he will have choice of either home setting or the original plan of [facility]. Addendum entered by Lata Walton LPN 11/04/19 10:54: Met again with pt during Team Rounds. Dr. Snyder confirmed that he would likely be ready for d/c to [facility] tomorrow. she stated she would not order another COVID test until the [facility] auth was firmly in place. Pt then noted that to care team that his friend has spoken with him last evening and said the reviews for [facility] are not very good. He is bringing his laptop in later today and we will research other facilities. Explained the limitations of [facility] facilities and the d/c planned for tomorrow. Agreed to call [facility] facilities in the [place]: [facility] and [facility] and bring him a list of same. Have now left vm to both facilities: unknown if either has any beds at this time. Original Note: DCP: continued: case received, EMR reviewed and met with pt in followup to his d/c plan as outlined in DCP notes of yesterday. He states that I really have no choice but to go to the rehab center. I cannot manage at home the way I am know. PT and OT notes support same. [facility]/ is choice of snf and referral info was sent to [facility]tr[facility] yesterday by Jane Jones. Have spoken now with Nereida/[facility]. She confirms acceptance pending [facility] authorization and states a new COVID test is needed if pt does not d/c today by 1200. Discussion early this morning with Dr. Snyder indicated that pt would perhaps be ready for d/c tomorrow. Have alerted RN caring for pt today re need for new COVID test. Have called [facility] and had to leave a vm requesting update re status of the snf authorization. Will be following closely.
[2019-11-04] MEDS: SODIUM CHLORIDE 0.9% FLUSH 10 ML IV ×2 (10:14→18:08)
--- NOTE | 2019-11-04 10:21 | PT.IPTN ---
Current Diagnoses Pathological fracture, right femur, initial encounter for fracture (11/01/19) Surgery Performed Operation Date: 11/02/19 17:15 Actual Procedures p Total Hip Arthroplasty/Anterior Approach(Right) - Clay Freitas MD Physical Therapy Treatment Note M2 PT-IP Current Condition Start: 11/03/19 11:56 Freq: NEEDED Status: Active Protocol: Document 11/03/19 10:27 [facility] (Rec: 11/03/19 12:07 [facility] [id number]) Physical Therapy Current Condition Current Condition Evaluation Date 11/03/19 Treatment Diagnosis R femoral neck fx s/p KEERTHI anterior approach; difficulty in walking Onset Date 11/01/19 Precautions Anterior Hip Precautions No Hip Extension,No Hip External Rotation Weight Bearing Status Weight Bearing Status Partial Weight Bearing Allowed Weight Bearing Amount (enter % RLE less than 50% weight or #) (%) bearing per clarification order by PA M3 PT-IP Subjective Start: 11/03/19 11:56 Freq: NEEDED Status: Active Protocol: Document 11/04/19 09:57 [facility] (Rec: 11/04/19 12:10 [facility] [id number]) Subjective Physical Therapy Visit Type Type Treatment Note Visit Start Time 09:57 Visit Stop Time 10:21 Total Visit Minutes 24 Number of PRODUCT MANAGEMENT INTERN Visits 2 Physical Therapy Visit Comments Patient Comments Pt agreeable to work w/ therapy. Therapy Pain Assessment Pain When Pain Assessed During Mobility Pain Present Pain Present Pain Reported Location Right Groin Intensity 6 Scale Used Numeric (0 - 10) Description Aching,Sharp Pain Behaviors Facial Grimacing,Guarding, Holding Area,Restlessness, Wincing Pain Management Techniques Elevation,Re-positioning, Timing of Activity with Medications M4 PT-IP Mobility and Gait Start: 11/03/19 11:56 Freq: NEEDED Status: Active Protocol: Document 11/04/19 09:57 [facility] (Rec: 11/04/19 12:10 [facility] [id number]) PT-Bed Mobility Assessment Supine to Sit Supine to Sit Minimal Assistance,1 Person Assistance,Head of Bed Elevated Sit to Supine Sit to Supine Moderate Assistance,1 Person Assistance,Bedrails Scooting Scooting to Edge of Bed Contact Guard Assistance Scooting Up and Down in Bed Contact Guard Assistance PT-Transfer Assessment Sit to and From Stand Sit to and from Stand Moderate Assistance,1 Person Assistance,Use of Upper Extremities Equipment Transfer Assistive Device Gait Belt,Front Wheeled Walker Orthotic/Prosthetic Devices or Brace: No Transfers Transfer Destination Bed Transfer Technique Stand Pivot Transfer Ability Level of Assist Minimal Assistance,Moderate Assistance,1 Person Assistance ,Use of Upper Extremities Comments Mobility Comments Pt in bed upon arrival from therapy. Able to recall PWB and hip precautions. Pt performed 1x10 ankle pumps, only able to tolerate 1x3 quad sets and glute sets d/t pain. Pt then sup<>sit Min A w/ HOB elevated and scooted to EOB CGA. Mod A for sit<>stand w/ FWW. Pt demonstrated good awareness of PWB. Pt performed 30 seconds weight shifting to gradually increase WB in RLE up to 50%. Pt then stand<>sit Min A for slow descent. Pt sit <>stand again w/ Mod A and performed off loading of RLE using BUE on FWW x5 to initiate future gait training. Pt then requested to get back in bed. Mod A for sit<>sup for LE guidance. Pt left in bed w/ SCDs on and all needs in reach. Gait Assessment Comments Gait Comments refused ambulation PT-Balance Assessment Sitting Balance and Reactions Static Sitting Balance Ability Good Dynamic Sitting Balance Ability Good Standing Balance and Reactions Static Standing Balance Ability Fair Dynamic Standing Balance Ability Fair Device Used FWW M5 PT-IP Objective Assessments Start: 11/03/19 11:56 Freq: NEEDED Status: Active Protocol: Document 11/03/19 10:27 [facility] (Rec: 11/03/19 12:07 [facility] [id number]) Orientation Orientation/Cognition Level of Alertness Alert Orientation Name,Place,Situation Language Function Ability No Deficits Noted Safety Awareness Understands Safety Issues Memory Description No Deficits Noted Gross Range of Motion Lower Extremity ROM Assessment Within Functional Limits Strength Lower Extremity Strength Assessment Right Impaired Hip 3-/5 Knee 3+/5 Coordination Assessment Gross Coordination Gross Coordination WNL Muscle Tone Muscle Tone WNL Yes M6 PT-IP Treatment Start: 11/03/19 11:56 Freq: NEEDED Status: Active Protocol: Document 11/04/19 09:57 [facility] (Rec: 11/04/19 12:10 [facility] [id number]) Physical Therapy Treatment Exercises Exercises Ankle Pumps,Gluteal Sets,Quad Sets Education Education Provided Precautions,Weight Bearing Status,Post-Op Packet,Safety M7 PT-IP Assessment and Plan Start: 11/03/19 11:56 Freq: NEEDED Status: Active Protocol: Document 11/04/19 09:57 [facility] (Rec: 11/04/19 12:10 [facility] [id number]) PT Summary Assessment and Plan Potential Rehabilitation Potential Good Status of Condition at Evaluation Stable Summary Impairments Pain,ROM,Strength,Balance, Coordination,Sensation,Tone, Cognition,Bed Mobility, Transfers,Gait,Activity Tolerance Assessment Summary Pt requiring Min A for sup<> sit, CGA for scooting, Mod A for sit<>stand and sit<>sup. Pt c/o 6/10 pn w/ movement this AM and remains limited in his mobility by pain. Pt has awareness of precautions and WB status, but refused ambulation today d/t pain. Pt has 14 steps that he is not able to complete d/t PWB status and will require SNF to improve gait and functional mobility. Goals Bed Mobility Goal Independent Transfer Goal Standby Assistance,Front Wheeled Walker Gait Goal Standby Assistance,Front Wheel Walker Gait Distance 50 Other Goals up/down 14 steps L rail less than 50% PWB on RLE. Days to Meet Goals 10 Frequency of Treatment Frequency Of Treatment Twice a Day Treatment Plan Physical Therapy Treatment Plan Bed Mobility Training,Transfer Training,Gait Training, Therapeutic Exercise,Balance Retraining,Post Op Education, Discharge Planning,Hot or Cold Pack,Neuromuscular Re-ed, Coordination Retraining,Manual Therapy Other Recommendations and Next Treatment transfers, ambulation, stairs Focus when appropriate if tolerated Recommendations To Nursing Amount of Assist Needed 1 Person Assist Discharge Recommendations PT Discharge Recommendations SNF Rehab Transportation Needs at Discharge Wheelchair/Cabulance
--- NOTE | 2019-11-04 10:26 | P.PN_ITS ---
Subjective Subjective Date Patient Seen: 11/04/19 Interval history: Yair Barreto is a 54-year-old male with a past medical history significant for hypertension no longer on medications and vitamin d deficiency who presented to the ED after a ground level mechanical fall landing on his right side complaining of severe right hip pain. The patient is resting in bedside chair comfortably. He rates his right hip pain a +3/10 and is well controlled with pain medication. He has more significant discomfort with movement and will plan to try and premedicate before PT/OT. He has no other complaints and denies headache, cough, shortness of breath, chest pain, abdominal pain, nausea, vomiting, fever, chills, dysuria, diarrhea or constipation. He is voiding without difficulty. He has not had a BM since admission and plan to implement bowel regimen. He is up ambulating minimally with assistance. Exam Vital Signs (past 8 hours): - 11/04/19 12:00 11/04/19 15:47 Temperature 86 F L Pulse Rate 86 Respiratory Rate 20 Blood Pressure 129/77 Pulse Oximetry 98 100 Oxygen Delivery Method Room Air Oxygen Flow Rate 0 Narrative Exam Narrative: General: Middle aged male sitting in bedside chair and in no acute distress, appears significantly older than stated age and frail, mildly anxious but otherwise appropriately interactive. HEENT: Normocephalic, atraumatic. External ears without defect. Pupils equal, round, and reactive to light. Anicteric sclerae, moist conjunctivae, and no lid lag. Oropharynx free of erythema and cobble stoning with moist mucosa. Neck: Supple with full range of motion. No lymphadenopathy or thyromegaly. Cardiovascular: Regular rate and rhythm without murmurs, rubs, or gallops appreciated. Pulmonary: Clear to auscultation bilaterally without crackles, wheezes, or rhonchi. Normal respiratory effort with no use of accessory muscles. Abdomen: Soft, bowel sounds present, nontender, nondistended. No hepatosplenomegaly or masses appreciated. Extremities: No clubbing, cyanosis, or edema. Right hip with dressing in place C/D/I without significant swelling or surrounding erythema. Skin: Normal temperature, turgor, and texture; no rash, ulcers, or subcutaneous nodules appreciated. Neurological: Cranial nerves grossly intact. Psychiatric: Mildly anxious mood and flat affect. Alert and oriented to person, place, and time. Objective Labs Result Diagrams: 11/04/19 05:10 11/04/19 05:10 Labs: Laboratory Results - last 24 hr 11/04/19 11/04/19 11/04/19 05:10 05:10 05:39 WBC 8.8 RBC 3.49 L Hgb 10.6 L Hct 30.8 L MCV 88.2 MCH 30.5 MCHC 34.6 RDW 13.5 Plt Count 182 Neut % (Auto) 53.1 D Lymph % (Auto) 30.0 D [place] % (Auto) 16.1 H Eos % (Auto) 0.6 L Baso % (Auto) 0.2 Neut # (Auto) 4700 Lymph # (Auto) 2700 [place] # (Auto) 1400 H Eos # (Auto) 100 Baso # (Auto) 0 Sodium 139 Potassium 4.2 Chloride 107 Carbon Dioxide 31 BUN 18 Creatinine 1.14 Estimated GFR > 60.0 BUN/Creatinine Ratio 15.8 Glucose 99 Calcium 8.0 L Magnesium 2.2 Total Bilirubin 1.4 H Conjugated Bilirubin 0.0 Unconjugated Bilirubin 1.3 H AST 66 H ALT 38 Alkaline Phosphatase 50 Total Protein 5.2 L Albumin 2.7 L Globulin 2.5 Albumin/Globulin Ratio 1.1 25-OH Vitamin D Total 44.3 COVID-19 PCR 11/04/19 11:30 WBC RBC Hgb Hct MCV MCH MCHC RDW Plt Count Neut % (Auto) Lymph % (Auto) [place] % (Auto) Eos % (Auto) Baso % (Auto) Neut # (Auto) Lymph # (Auto) [place] # (Auto) Eos # (Auto) Baso # (Auto) Sodium Potassium Chloride Carbon Dioxide BUN Creatinine Estimated GFR BUN/Creatinine Ratio Glucose Calcium Magnesium Total Bilirubin Conjugated Bilirubin Unconjugated Bilirubin AST ALT Alkaline Phosphatase Total Protein Albumin Globulin Albumin/Globulin Ratio 25-OH Vitamin D Total COVID-19 PCR Negative Assessment & Plan Assessment & Plan narrative: Yair Barreto is a 54-year-old male with a past medical history significant for hypertension no longer on medications and vitamin d deficiency who presented to the ED after a ground level mechanical fall landing on his right side complaining of severe right hip pain. 1. Acute pathological right femoral neck fracture, status post anterior total right hemiarthroplasty, present on admission. Active. -Patient presented after a ground level mechanical fall landing on his right side complaining of severe right hip pain and inability to ambulate. -Right hip x-ray demonstrated acute appearing right femoral neck fracture with no additional pelvic injury. -Right hip CT without contrast demonstrated mildly impacted femoral neck fracture at the right hip. -Consulted orthopedic surgery, Dr. Freitas, who performed right anterior total hip arthroplasty on 11/01. Continue post-operative management, pain control, and VTE prophylaxis per orthopedic surgery. -Continue physical and occupational therapy evaluation and treatment. Continue partial weight bearing and anterior hip precautions on right lower extremity. -Contnue vitamin D and calcium supplementation. Patient will need to be treated for osteoporosis as an outpatient per PCP or ortho. -Ordered secondary causes of osteoporosis work-up including: Calcium level normal at 9.9, TSH normal at 2.9, 25-OH vitamin D normal at 44.3 (patient on vitamin D3 at home) and iPTH pending. Femoral neck sent for pathology, pending. Possible malnourishment and consulted business and financial counsel and appreciate her recs. Consider endocrinology referral for further workup of osteoporosis. 2. Acute blood loss anemia, not present on admission. Stable. -Secondary to anterior right hip total arthroplasty. -Initial hemoglobin normal at 13.9. Hemoglobin trending down now 10.6. No overt signs of bleeding. -Continue to monitor CBC daily. 3. History of hypertension. -Patient is not currently medically treated for hypertension. Patient was previously on lisinopril 10 mg daily. -Patients BP was mildly elevated on admission in the setting of pain. Continue to control pain and monitor BP closely. BP is within normal limits and controlled without medical treatment, therefore, hypertension appears to be in remission. 4. Prolonged QT interval, present on admission -EKG demonstrated normal sinus rhythm with mild QTc prolongation at 485 ms. Plan to repeat EKG to see if QTc prolongation persistent. -Continue to monitor closely on telemetry. No significant ectopy during hospitalization thus far. 5. Acute leukocytosis, present on admisison. Resolved. -Leukocytosis reactive in the setting of trauma. No other signs or symptoms of infection and resolved the following morning after admission. 6. 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 Resolving. -Predominately unconjugated hyperbilirubinemia at 3.1 and improving to 1.3. No need to further monitor. Code status: Full code DVT prophylaxis: Aspirin Disposition: Patient likely to discharge to long term facility tomorrow for continued rehabilitation pending insurance authorization.
--- NOTE | 2019-11-04 11:50 | OT.IP.TRT ---
Current Diagnoses Pathological fracture, right femur, initial encounter for fracture (11/01/19) Surgery Performed Operation Date: 11/02/19 17:15 Actual Procedures p Total Hip Arthroplasty/Anterior Approach(Right) - Clay Freitas MD Occupational Therapy Treatment Note M2 OT-IP Current Condition Start: 11/03/19 15:06 Freq: Status: Active Protocol: Document 11/03/19 15:07 CCC (Rec: 11/03/19 15:33 CCC [email or web address]) Occupational Therapy Current Condition Current Condition Evaluation Date 11/03/19 Treatment Diagnosis Right femoral neck fracture s/ p L KEERTHI anterior Diagnosis Onset Date 11/01/19 Post Operative Precautions Anterior Hip Precautions No Hip Extension,No Hip External Rotation Weight Bearing Status Weight Bearing Status Partial Weight Bearing Allowed Weight Bearing Amount (enter % 50% PWB for RLE or #) (%) M3 OT- IP Subjective and Pain Start: 11/03/19 15:06 Freq: Status: Active Protocol: Document 11/04/19 13:54 CGR (Rec: 11/04/19 14:05 CGR [email or web address]) OT- Subjective Occupational Therapy Visit Type Type Progress Note Visit Start Time 11:08 Visit Stop Time 11:21 Total Visit Minutes 13 OT Pain Assessment Pain When Pain Assessed During Mobility Pain Present Pain Present Pain Reported Location Right Groin Intensity 5 Scale Used Numeric (0 - 10) Management Techniques Modification of Treatment,Re- positioning,Timing of Activity with Medications M4 OT- IP ADL's Start: 11/03/19 15:06 Freq: Status: Active Protocol: Document 11/04/19 13:54 CGR (Rec: 11/04/19 14:05 CGR [email or web address]) OT [id number] Comments OT Self-Feeding Comments not yet meal time OT ADL-Grooming Comments OT Grooming Comments pt declined, performed this AM OT ADL-Oral Care Comments Oral Care Comments pt declined, performed this am OT ADL-Dressing General Eval Lower Body Dressing Ability Total Assistance Areas Needing Assistance Socks OT ADL-Toileting Comments OT Toileting Comments not performed, pt with izquierdo. OT ADL-Bathing Comments OT Bathing Comments pt declined M5 OT- IP IADL's Start: 11/03/19 15:06 Freq: Status: Active Protocol: Document 11/03/19 15:07 CCC (Rec: 11/03/19 15:33 CCC [email or web address]) OT-Instrumental Activities of Daily Living Home Safety Awareness Awareness of Need for Assistance at Home Good Awareness Ability to Problem Solve Emergency Able to Problem Solve Situations Medication Management Medication Management No Deficits Identified Money Management Money Management No Deficits Identified Meal Preparation Meal Preparation Comments At this time pt will need assiat for all ADl and IADl needs. M6 OT- IP Functional Cognition Start: 11/03/19 15:06 Freq: Status: Active Protocol: Document 11/03/19 15:07 [facility] (Rec: 11/03/19 15:33 [facility] [email or web address]) Cognitive Factors Limiting Selfcare Function Cognitive Ability Level of Alertness Alert Patient Orientation Name,Age,Birthday,Month,Date, Year,Day of Week,Place, Situation Attention Span Ability Capable of Focused Attention, Capable of Sustained Attention Ability to Follow Commands Able to Follow Multi-Step Commands Cognitive Comments Cognitive Assessment Comments Pt appears intact at this time for cognitve needs. OT- Vision and Hearing OT- Hearing Assessment OT- Hearing Assessment WFL OT- Vision Assessment Visual Acuity Glasses All The Time M7 OT- IP Mobility and Balance Start: 11/03/19 15:06 Freq: Status: Active Protocol: Document 11/04/19 13:54 CGR (Rec: 11/04/19 14:05 CGR [email or web address]) OT- Bed Mobility Assessment Rolling Level of Assistance Minimal Assistance Supine to Sit Supine to Sit Assist Minimal Assistance,Head of Bed Elevated,Bedrails Scooting Scooting to Edge of Bed Standby Assistance OT-Transfer Assessment Transfers Transfer Ability Minimal Assistance Technique Transfer Destination Bed,Chair Transfer Technique Stand Step Pivot Devices Transfer Assistive Devices Gait Belt,Front Wheeled Walker Comments Mobility Comments Pt declined further mobiltiy than transfer to chair. OT- Balance Assessment Sitting Balance and Reactions Static Sitting Balance Ability Good M8 OT- IP Objective Assessments Start: 11/03/19 15:06 Freq: Status: Active Protocol: Document 11/03/19 15:07 [facility] (Rec: 11/03/19 15:33 [facility] [email or web address]) OT Gross Range of Motion Upper Extremity Range of Motion Assessment Within Functional Limits OT Strength Comments Strength Comments BUE 4/5 to 4-/5 from proximal to distal. M9 OT- IP Assessment and Plan Start: 11/03/19 15:06 Freq: Status: Active Protocol: Document 11/04/19 13:54 CGR (Rec: 11/04/19 14:05 CGR [email or web address]) OT Summary Assessment and Plan Potential Rehabilitation Potential Good Analytic Complexity at Evaluation Low Summary OT Impairments Pain,Strength,Functional Mobility,Grooming,Dressing, Toileting,Bathing,Toilet Transfers,Shower Transfers, Activity Tolerance Progress Towards Goals Slow Progress due to Pain,Slow Progress due to Medical Issues,Slow Progress due to Activity Tolerance Assessment Summary Pt tolerated limited session today. Pt will benefit from increased activity. Goals Grooming Goal Independent Dressing Goal Independent Toileting Goal Independent Bathing Goal Independent Toilet Transfer Goal Independent Shower Transfer Goal Independent Patient/Caregiver Education Goal Demonstrate Post-Op Precautions Days to Meet Goals 19 Frequency of Treatment Frequency Of Treatment Once a Day Treatment Plan OT Treatment Plan ADL Training,Functional Mobility,Patient/Family Education,Discharge Planning Other Treatment Recommendations and Next Transfer to [facility]. Treatment Focus Discharge Recommendations OT Discharge Recommendations SNF Rehab Home Equipment Needs defer to SNF Transportation Needs at Discharge Private Vehicle
--- NOTE | 2019-11-04 12:15 | PM.PN.1 ---
Subjective Subjective Date Patient Seen: 11/04/19 Time Patient Seen: 12:15 Interval history: Patient is now POD#2 from right anterior KEERTHI for displaced intra-capusular femoral neck fracture. OVerall doing OK, slow to mobilize with PT. Continues ot have hip flexer weakness, improved knee extension strength Exam Vital Signs (past 8 hours): - 11/04/19 05:54 11/04/19 07:30 11/04/19 08:00 Temperature 98.3 F 99.0 F Pulse Rate 87 87 Respiratory Rate 16 16 Blood Pressure 133/77 129/74 Pulse Oximetry 100 100 98 11/04/19 12:00 Temperature Pulse Rate Respiratory Rate Blood Pressure Pulse Oximetry 98 Oxygen Delivery Method Room Air Oxygen Flow Rate 0 Narrative Exam Narrative: Sensation intact throughout the RLE, dressing c/d/i, HF 4/5, KE 5/ Objective Labs Result Diagrams: 11/04/19 05:10 11/04/19 05:10 Labs: Laboratory Results - last 24 hr 11/04/19 11/04/19 11/04/19 05:10 05:10 05:39 WBC 8.8 RBC 3.49 L Hgb 10.6 L Hct 30.8 L MCV 88.2 MCH 30.5 MCHC 34.6 RDW 13.5 Plt Count 182 Neut % (Auto) 53.1 D Lymph % (Auto) 30.0 D [place] % (Auto) 16.1 H Eos % (Auto) 0.6 L Baso % (Auto) 0.2 Neut # (Auto) 4700 Lymph # (Auto) 2700 [place] # (Auto) 1400 H Eos # (Auto) 100 Baso # (Auto) 0 Sodium 139 Potassium 4.2 Chloride 107 Carbon Dioxide 31 BUN 18 Creatinine 1.14 Estimated GFR > 60.0 BUN/Creatinine Ratio 15.8 Glucose 99 Calcium 8.0 L Magnesium 2.2 Total Bilirubin 1.4 H Conjugated Bilirubin 0.0 Unconjugated Bilirubin 1.3 H AST 66 H ALT 38 Alkaline Phosphatase 50 Total Protein 5.2 L Albumin 2.7 L Globulin 2.5 Albumin/Globulin Ratio 1.1 25-OH Vitamin D Total 44.3 Assessment & Plan Assessment & Plan narrative: Patient is a 54 yo male now POD#2 from right anteiror KEERTHI for a displaced intra-capsular femoral neck fracture. Overall he is doing well. I spoke with him about precautions and weight bearing as well as post-op expectations. All questions were answered. - Protected weight bearing RLE (FWW) - Anterior hip precautions - ASA 81mg BID for 6 weeks for DVT prophylaxis - Pathology femoral head - pending - Tylenol and Oxycodone for pain control - Ok to shower over dressings - Leave dressings in place until post-op visit Time Spent With Patient Time with patient: less than 15 minutes
[2019-11-04 12:52] LABS: COVID19 -Nasal RAPID Negative (Negative)
--- NOTE | 2019-11-04 13:40 | PT.IPTN ---
Current Diagnoses Pathological fracture, right femur, initial encounter for fracture (11/01/19) Surgery Performed Operation Date: 11/02/19 17:15 Actual Procedures p Total Hip Arthroplasty/Anterior Approach(Right) - Clay Freitas MD Physical Therapy Treatment Note M2 PT-IP Current Condition Start: 11/03/19 11:56 Freq: NEEDED Status: Active Protocol: Document 11/03/19 10:27 AB (Rec: 11/03/19 12:07 AB [email or web address]) Physical Therapy Current Condition Current Condition Evaluation Date 11/03/19 Treatment Diagnosis R femoral neck fx s/p KEERTHI anterior approach; difficulty in walking Onset Date 11/01/19 Precautions Anterior Hip Precautions No Hip Extension,No Hip External Rotation Weight Bearing Status Weight Bearing Status Partial Weight Bearing Allowed Weight Bearing Amount (enter % RLE less than 50% weight or #) (%) bearing per clarification order by PA M3 PT-IP Subjective Start: 11/03/19 11:56 Freq: NEEDED Status: Active Protocol: Document 11/04/19 13:26 KS (Rec: 11/04/19 14:40 KS [id number]) Subjective Physical Therapy Visit Type Type Treatment Note Visit Start Time 13:26 Visit Stop Time 13:40 Total Visit Minutes 14 Number of REGULATORY ASSISTANT Visits 3 Physical Therapy Visit Comments Patient Comments Pt agreeable to work w/ therapy. Therapy Pain Assessment Pain When Pain Assessed During Mobility Pain Present Pain Present Pain Reported M4 PT-IP Mobility and Gait Start: 11/03/19 11:56 Freq: NEEDED Status: Active Protocol: Document 11/04/19 13:26 KS (Rec: 11/04/19 14:40 KS [id number]) PT-Bed Mobility Assessment Sit to Supine Sit to Supine Moderate Assistance,1 Person Assistance,Bedrails Scooting Scooting to Edge of Bed Contact Guard Assistance Scooting Up and Down in Bed Contact Guard Assistance PT-Transfer Assessment Sit to and From Stand Sit to and from Stand Minimal Assistance,1 Person Assistance,Use of Upper Extremities Equipment Transfer Assistive Device Gait Belt,Front Wheeled Walker Orthotic/Prosthetic Devices or Brace: No Transfers Transfer Destination Bed Transfer Technique Stand Step Pivot Transfer Ability Level of Assist Contact Guard Assistance, Minimal Assistance,1 Person Assistance,Use of Upper Extremities Comments Mobility Comments Pt was in chair upon arrival from therapy. CGA for scooting to EOC, Min A for sit<>stand w/ FWW. Pt stated he wanted to brush his teeth, but stated he did not want to ambulate to sink. Pt then completed stand step pivot transfer CGA w/ cues. Pt CGA for stand<>sit, Mod A for sit<>sup for LE guidance into bed. Pt left in bed w/ all needs in reach and SCDs on. Gait Assessment Comments Gait Comments refused ambulation, stand step pivot only PT-Balance Assessment Sitting Balance and Reactions Static Sitting Balance Ability Good Dynamic Sitting Balance Ability Good Standing Balance and Reactions Static Standing Balance Ability Fair Dynamic Standing Balance Ability Fair Device Used FWW M5 PT-IP Objective Assessments Start: 11/03/19 11:56 Freq: NEEDED Status: Active Protocol: Document 11/03/19 10:27 AB (Rec: 11/03/19 12:07 AB [id number]) Orientation Orientation/Cognition Level of Alertness Alert Orientation Name,Place,Situation Language Function Ability No Deficits Noted Safety Awareness Understands Safety Issues Memory Description No Deficits Noted Gross Range of Motion Lower Extremity ROM Assessment Within Functional Limits Strength Lower Extremity Strength Assessment Right Impaired Hip 3-/5 Knee 3+/5 Coordination Assessment Gross Coordination Gross Coordination WNL Muscle Tone Muscle Tone WNL Yes M6 PT-IP Treatment Start: 11/03/19 11:56 Freq: NEEDED Status: Active Protocol: Document 11/04/19 13:26 KS (Rec: 11/04/19 14:40 KS [id number]) Physical Therapy Treatment Exercises Exercises Ankle Pumps,Gluteal Sets,Quad Sets Education Education Provided Precautions,Weight Bearing Status,Post-Op Packet,Safety M7 PT-IP Assessment and Plan Start: 11/03/19 11:56 Freq: NEEDED Status: Active Protocol: Document 11/04/19 13:26 KS (Rec: 11/04/19 14:40 KS [id number]) PT Summary Assessment and Plan Potential Rehabilitation Potential Good Status of Condition at Evaluation Stable Summary Impairments Pain,ROM,Strength,Balance, Coordination,Sensation,Tone, Cognition,Bed Mobility, Transfers,Gait,Activity Tolerance Assessment Summary Pt CGA for scooting, Min A for sit<>stand, CGA for stand step pivot to bed, Mod A for sit<>sup for LE guidance. Pt c /o increased pain w/ mobility and LE strengthening exercises and denied further ambulation . Pt will require SNF to improve functional mobility and gait tolerance. Goals Bed Mobility Goal Independent Transfer Goal Standby Assistance,Front Wheeled Walker Gait Goal Standby Assistance,Front Wheel Walker Gait Distance 50 Other Goals up/down 14 steps L rail less than 50% PWB on RLE. Days to Meet Goals 10 Frequency of Treatment Frequency Of Treatment Twice a Day Treatment Plan Physical Therapy Treatment Plan Bed Mobility Training,Transfer Training,Gait Training, Therapeutic Exercise,Balance Retraining,Post Op Education, Discharge Planning,Hot or Cold Pack,Neuromuscular Re-ed, Coordination Retraining,Manual Therapy Other Recommendations and Next Treatment transfers, ambulation, stairs Focus when appropriate if tolerated Recommendations To Nursing Amount of Assist Needed 1 Person Assist Discharge Recommendations PT Discharge Recommendations SNF Rehab Transportation Needs at Discharge Wheelchair/Cabulance
[2019-11-05 01:00] VITALS: O2SAT 96
[2019-11-05 04:00] VITALS: BP 137/86; PULSE 80; RESP 16; TEMP 36.9; O2SAT 100
[2019-11-05 05:00] VITALS: O2SAT 100
[2019-11-05 06:11] LABS: Add Manual Diff / Slide Review NO; Basophils Absolute Auto 0 /uL (0-100); Basophils Percent Auto 0.2 % (0-2); Eosinophils Absolute Auto 100 /uL (0-450); Eosinophils Percent Auto 0.8 % (2-4); Hematocrit 30.4 % (41-53); Hemoglobin 10.4 g/dL (13.5-17.5); Lymphocytes Absolute Auto 1400 /uL (1100-4500); Lymphocytes Percent Auto 17.1 % (25-40); Mean Corpuscular HGB Conc 34.1 % (30-36); Mean Corpuscular Hemoglobin 30.1 PG (26-34); Mean Corpuscular Volume 88.2 fL (80-100); Monocytes Absolute Auto 1100 /uL (0-900); Monocytes Percent Auto 13.6 % (3-14); Neutrophils Absolute Auto 5400 /uL (1500-7000); Neutrophils Percent Auto 68.3 % (50-75); Platelet Count 228 X10^3/uL (150-400); Red Blood Cell Count 3.45 X10^6/uL (4.5-5.9); Red Cell Distribution Width 13.8 % (11.6-14.8); White Blood Cell Count 7.9 X10^3/uL (4.5-11.0)
--- NOTE | 2019-11-05 08:04 | PC.NURSE ---
Addendum entered by Pepe Barrios R.N. 11/05/19 12:43: Pt readied for transfer to [facility]. Belongings collected, IV d/c'd intact. Paperwork in order. Tele monitor removed. Pt drinking water to assist voiding. Report given to Daniela at [facility]. Noted izquierdo was d/c'd and Pt would be transferring by w/c and w/c walter. Original Note: Pt awake watching TV, introduced may self, and discussed plan for the day. Pt aware of probable transfer today to a rehab. Pt A&O offers no over c/o pain or other issues. Discussed removing izquierdo with Pt and Dr. Snyder. Izquierdo removed. Pt андрей well. Discussed need for Pt to call as needed to void. Plan to move to Rehab facility today.
[2019-11-05] MEDS: ASPIRIN EC 81 MG TABLET PO (08:11)
[2019-11-05] MEDS: ACETAMINOPHEN 325 MG TABLET 650 MG PO (08:12)
[2019-11-05] MEDS: OXYCODONE IR 5 MG TABLET PO (08:18)
[2019-11-05 08:22] VITALS: BP 137/83; PULSE 84; RESP 19; TEMP 37.1; O2SAT 100
--- NOTE | 2019-11-05 08:38 | P.PN_ITS ---
Subjective Subjective Date Patient Seen: 11/05/19 Interval history: POD #3 s/p right anterior KEERTHI for displaced intra-capusular femoral neck fracture with Dr. Freitas. Patient reports continued leg weakness. He had Isbell catheter removed this morning, has not voided yet. No complaints of pain today. States last night he had loose bowel movements. Exam Vital Signs (past 8 hours): - 11/05/19 01:00 11/05/19 04:00 11/05/19 05:00 Temperature 98.4 F Pulse Rate 80 Respiratory Rate 16 Blood Pressure 137/86 Pulse Oximetry 96 100 100 Oxygen Delivery Method Room Air Oxygen Flow Rate 0 Narrative Exam Narrative: Patient lying in bed no acute distress. He is alert orient x3. Calves are soft, compressible, nontender bilaterally. Dorsalis pedis pulses 2+ symmetrical. Sensation intact light touch throughout bilateral lower extremities. Hip flexors 4/5 strength. He is able to actively dorsiflex and plantar flex. Objective Labs Result Diagrams: 11/05/19 05:39 11/04/19 05:10 Labs: Laboratory Results - last 24 hr 11/04/19 11/05/19 11:30 05:39 WBC 7.9 RBC 3.45 L Hgb 10.4 L Hct 30.4 L MCV 88.2 MCH 30.1 MCHC 34.1 RDW 13.8 Plt Count 228 Neut % (Auto) 68.3 Lymph % (Auto) 17.1 L [place] % (Auto) 13.6 Eos % (Auto) 0.8 L Baso % (Auto) 0.2 Neut # (Auto) 5400 Lymph # (Auto) 1400 [place] # (Auto) 1100 H Eos # (Auto) 100 Baso # (Auto) 0 COVID-19 PCR Negative Assessment & Plan Post-op Postoperative Procedures: Procedures Operation Date: 11/02/19 17:15 Actual Procedures Side Surgeon p Total Hip Arthroplasty/Anterior Approach Right Clay Freitas MD Patient will need to continue to mobilize with physical therapy. Monitor voiding before discharge. [facility] by hospitalist team. He will follow up in our office in [address] Freitas.
--- NOTE | 2019-11-05 08:42 | CM.DPC ---
Addendum entered by Lata Walton LPN 11/05/19 09:17: All is now set up for pt to go to [facility] today, w/c van: 1130. Oliva/[facility] CM is updated. Auth remains in place. Pt is updated and very agreeable to plan. FRAN Cantu will call report. PASRR: reviewed, faxed to [facility], placed to snf packet. Copy to scan folder. Will process final snf orders once Dr. Snyder completes same. Addendum entered by Lata Walton LPN 11/05/19 08:45: last COVID 11/03 1130 Addendum entered by Lata Walton LPN 11/05/19 08:44: Flores auth for [facility] remains in place. Original Note: DCP: continued: spoke late yesterday afternoon with pt and updated him re snf choice status. He stated he is now agreeable to going to [facility] for rehab. Expected today. See that the d/c orders are now in process. Will alert Nereida/Americ[facility] and set up a time for the d/c.
--- NOTE | 2019-11-05 09:15 | PT.IPTN ---
Current Diagnoses Pathological fracture, right femur, initial encounter for fracture (11/01/19) Surgery Performed Operation Date: 11/02/19 17:15 Actual Procedures p Total Hip Arthroplasty/Anterior Approach(Right) - Clay Freitas MD Physical Therapy Treatment Note M2 PT-IP Current Condition Start: 11/03/19 11:56 Freq: NEEDED Status: Active Protocol: Document 11/03/19 10:27 AB (Rec: 11/03/19 12:07 AB [id number]) Physical Therapy Current Condition Current Condition Evaluation Date 11/03/19 Treatment Diagnosis R femoral neck fx s/p KEERTHI anterior approach; difficulty in walking Onset Date 11/01/19 Precautions Anterior Hip Precautions No Hip Extension,No Hip External Rotation Weight Bearing Status Weight Bearing Status Partial Weight Bearing Allowed Weight Bearing Amount (enter % RLE less than 50% weight or #) (%) bearing per clarification order by PA M3 PT-IP Subjective Start: 11/03/19 11:56 Freq: NEEDED Status: Active Protocol: Document 11/05/19 09:00 KS (Rec: 11/05/19 09:25 KS [id number]) Subjective Physical Therapy Visit Type Type Treatment Note Visit Start Time 09:00 Visit Stop Time 09:15 Total Visit Minutes 15 Number of [employer]PER[employer] Visits 4 Physical Therapy Visit Comments Patient Comments Pt agreeable to work w/ therapy. Therapy Pain Assessment Pain When Pain Assessed During Mobility Pain Present Pain Present Pain Reported Location Right Groin Intensity 4 Scale Used Numeric (0 - 10) Description Aching Pain Behaviors Guarding Pain Management Techniques Elevation,Re-positioning, Timing of Activity with Medications M4 PT-IP Mobility and Gait Start: 11/03/19 11:56 Freq: NEEDED Status: Active Protocol: Document 11/05/19 09:00 KS (Rec: 11/05/19 09:25 KS [id number]) PT-Bed Mobility Assessment Supine to Sit Supine to Sit Contact Guard Assistance,1 Person Assistance,Head of Bed Elevated Sit to Supine Sit to Supine Moderate Assistance,1 Person Assistance,Bedrails Scooting Scooting to Edge of Bed Contact Guard Assistance Scooting Up and Down in Bed Contact Guard Assistance PT-Transfer Assessment Sit to and From Stand Sit to and from Stand Minimal Assistance,1 Person Assistance,Use of Upper Extremities Equipment Transfer Assistive Device Gait Belt,Front Wheeled Walker Orthotic/Prosthetic Devices or Brace: No Transfers Transfer Destination Bed Transfer Technique Stand Step Pivot Transfer Ability Level of Assist Contact Guard Assistance, Minimal Assistance,1 Person Assistance,Use of Upper Extremities Comments Mobility Comments Pt was in bed upon arrival from therapy. CGA for sup<>sit w/ HOB elevated and scooting EOB. Demonstrated correct ambulation PWB w/ FWW technique to pt which he agreed to try. Pt Min A for sit<>stand w/ FWW. Pt then ambulated ~15 ft w/ FWW and CGA and was able to maintain PWB status w/ cues for correct sequencing. Pt returned to bed, Mod A for sit<>sup for LE guidance. Pt left in bed w/ all needs in reach. Gait Assessment Gait Gait Assistance Required: Contact Guard Assist Distance (Feet) 15 Able to Maintain Weight Bearing Status Yes During Gait Assistive Devices Assistive Device Front Wheeled Walker Orthotic/Prosthetic Devices or Brace: Yes Gait Deviations General Gait Pattern Antalgic,Decreased Stride Length,Decreased Feet Clearance,Step-to Gait Factors Limiting Gait Function Factors Limiting Gait Function Decreased Activity Tolerance, Decreased Strength,Limited Range of Motion,Pain Comments Gait Comments Pt ambulated ~15 ft w/ FWW and CGA. Pt able to maintain 50% PWB w/ cues for sequencing. PT-Balance Assessment Sitting Balance and Reactions Static Sitting Balance Ability Good Dynamic Sitting Balance Ability Good Standing Balance and Reactions Static Standing Balance Ability Fair Dynamic Standing Balance Ability Fair Device Used FWW M5 PT-IP Objective Assessments Start: 11/03/19 11:56 Freq: NEEDED Status: Active Protocol: Document 11/03/19 10:27 AB (Rec: 11/03/19 12:07 AB [id number]) Orientation Orientation/Cognition Level of Alertness Alert Orientation Name,Place,Situation Language Function Ability No Deficits Noted Safety Awareness Understands Safety Issues Memory Description No Deficits Noted Gross Range of Motion Lower Extremity ROM Assessment Within Functional Limits Strength Lower Extremity Strength Assessment Right Impaired Hip 3-/5 Knee 3+/5 Coordination Assessment Gross Coordination Gross Coordination WNL Muscle Tone Muscle Tone WNL Yes M6 PT-IP Treatment Start: 11/03/19 11:56 Freq: NEEDED Status: Active Protocol: Document 11/05/19 09:00 KS (Rec: 11/05/19 09:25 KS [id number]) Physical Therapy Treatment Education Education Provided Precautions,Weight Bearing Status,Safety M7 PT-IP Assessment and Plan Start: 11/03/19 11:56 Freq: NEEDED Status: Active Protocol: Document 11/05/19 09:00 BRIAN (Rec: 11/05/19 09:25 KS [id number]) PT Summary Assessment and Plan Potential Rehabilitation Potential Good Status of Condition at Evaluation Stable Summary Impairments Pain,ROM,Strength,Balance, Coordination,Sensation,Tone, Cognition,Bed Mobility, Transfers,Gait,Activity Tolerance Assessment Summary Pt CGA for sup<>sit, Min A sit <>stand, CGA w/ cues for ambulation w/ FWW, Mod A for sit<>sup for LE guidance into bed. Pt showed improvement in activity tolerance and was able to tolerate 15 ft ambulation today, however reported pain and fatigue after 15 ft. Pt will require SNF to improve strength and functional mobility. Goals Bed Mobility Goal Independent Transfer Goal Standby Assistance,Front Wheeled Walker Gait Goal Standby Assistance,Front Wheel Walker Gait Distance 50 Other Goals up/down 14 steps L rail less than 50% PWB on RLE. Days to Meet Goals 10 Frequency of Treatment Frequency Of Treatment Twice a Day Treatment Plan Physical Therapy Treatment Plan Bed Mobility Training,Transfer Training,Gait Training, Therapeutic Exercise,Balance Retraining,Post Op Education, Discharge Planning,Hot or Cold Pack,Neuromuscular Re-ed, Coordination Retraining,Manual Therapy Other Recommendations and Next Treatment transfers, ambulation, stairs Focus when appropriate if tolerated Recommendations To Nursing Amount of Assist Needed 1 Person Assist Discharge Recommendations PT Discharge Recommendations SNF Rehab Transportation Needs at Discharge Wheelchair/Cabulance
--- NOTE | 2019-11-05 09:19 | PM.DS.1 ---
History of Present Illness History of Present Illness Date Patient Seen: 11/01/19 Chief complaint: R Hip Injury Narrative: Written by Dr. Scales: Yair Barreto is a 54-year-old male with a past medical history of hypertension, no longer on medications, who presented after a mechanical fall landing on his right side complaining of severe right hip pain. Patient states that he was walking down the stairs with a ladder, at the bottom of the stairs is tile and he slipped and fell on the tile landing on his right hip. He was able to crawl and sit up until waiting for a couple hours for someone to arrive and call EMS. His pain was somewhat controlled with opiates in the ER, and there is little to no pain at rest but it is severe when moving at all. He denies any history of osteoporosis although he does endorse prior rib fractures in the past. In the emergency room, patient was mildly hypertensive but remainder vital signs were unremarkable. Initial labs showed a leukocytosis at 17.4, but otherwise unremarkable CBC. Chemistries showed a mildly elevated glucose at 122, total bilirubin of 2.1, and ALT of 64. COVID-19 testing was negative. Calcium was normal at 9.9. EKG showed normal sinus rhythm with a mild prolonged QTC interval at 485. Hip x-ray showed an acute right femoral neck fracture which is mildly displaced and angulated. Discharge Providers Provider Date of admission: 11/01/19 11:28 Discharge Date: 11/05/19 Primary care physician: Martín James MD Consults: 11/01/19 11:23 Consult to Orthopedic Surgery Stat Comment: Consulting Provider: Milagro Malave Reason for consultation: right femoral neck fracture Has provider been notified: Yes 11/01/19 13:38 Consult to Occupational Therapy Evaluate & Treat Comment: Physician Instructions: Evaluate and treat Consult to Physical Therapy Evaluate & Treat Comment: Physician Instructions: Evaluate and Treat 11/01/19 14:39 Consult to Dietitian, Adult Routine Comment: Reason For Exam: weight loss 11/02/19 22:06 Consult to Anesthesiology Routine Comment: Consulting Provider: Anesthesiologist Reason for consultation: Regional block for post operative pain control Consult to Discharge Planning Routine Comment: Consult to Physical Therapy Evaluate & Treat Comment: Physician Instructions: post op KEERTHI protocol Consult to Respiratory Therapy Evaluate & Treat Comment: Physician Instructions: Evaluate and treat Discharge provider: Cristina Snyder DO Summary Hospital Course Discharge Diagnosis: 1. Acute pathological right femoral neck fracture, status post anterior total right hemiarthroplasty, present on admission. Active. 2. Acute blood loss anemia, not present on admission. Stable. 3. History of hypertension. 4. Prolonged QTc interval, present on admission. Resolved. 5. Acute leukocytosis, present on admission. Resolved. 6. 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 Resolving. Hospital Course: Yair Barreto is a 54-year-old male with a past medical history significant for hypertension no longer on medications and vitamin d deficiency who presented to the ED after a ground level mechanical fall landing on his right side complaining of severe right hip pain. 1. Acute pathological right femoral neck fracture, status post anterior total right hemiarthroplasty, present on admission. Active. -Patient presented after a ground level mechanical fall landing on his right side complaining of severe right hip pain and inability to ambulate. -Right hip x-ray demonstrated acute appearing right femoral neck fracture with no additional pelvic injury. -Right hip CT without contrast demonstrated mildly impacted femoral neck fracture at the right hip. -Consulted orthopedic surgery, Dr. Freitas, who performed right anterior total hip arthroplasty on 11/01. Continued post-operative management, pain control, and VTE prophylaxis per orthopedic surgery. Follow-up with orthopedic surgeon, Dr. Freitas in 2 weeks. -Continue physical and occupational therapy evaluation and treatment. Continue partial weight bearing and anterior hip precautions on right lower extremity. -Continued aspirin 81 mg twice daily for 6 weeks. -Continued acetaminophen 650 mg 3 times daily and oxycodone 5 mg every 3 hours as needed for pain. -Continued vitamin D and calcium supplementation. Patient will need to be treated for osteoporosis as an outpatient per PCP or ortho. -Started work-up of secondary causes of osteoporosis including: Calcium level normal at 9.9, TSH normal at 2.9, 25-OH vitamin D normal at 44.3 (patient on vitamin D3 at home) and iPTH pending. Femoral neck sent for pathology, pending. Possible malnourishment and consulted cable ferry operator and appreciate her recs. May consider endocrinology referral for further workup of secondary osteoporosis. 2. Acute blood loss anemia, not present on admission. Stable. -Secondary to anterior right hip total arthroplasty. -Initial hemoglobin normal at 13.9. Hemoglobin trended down now 10.4 and stable. No overt signs of bleeding. -Continued to monitor CBC daily. 3. History of hypertension. -Patient is not currently medically treated for hypertension and was previously on lisinopril 10 mg daily. -Patients BP was mildly elevated on admission in the setting of pain. Continued to control pain and monitor BP closely. BP is within normal limits and controlled without medical treatment, therefore, hypertension appears to be in remission. 4. Prolonged QTc interval, present on admission. Resolved. -EKG demonstrated normal sinus rhythm with mild QTc prolongation at 485 ms. repeat EKG demonstrated normal QTC interval at 402 ms. -Continued to monitor closely on telemetry. No significant ectopy during hospitalization thus far. 5. Acute leukocytosis, present on admission. Resolved. -Leukocytosis reactive in the setting of trauma. No other signs or symptoms of infection and resolved the following morning after admission. 6. 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 Resolving. -Predominately unconjugated hyperbilirubinemia at 3.1 and improving to 1.3. No need to further monitor. Exam Vital Signs (past 8 hours): - 11/05/19 04:00 11/05/19 05:00 Temperature 98.4 F Pulse Rate 80 Respiratory Rate 16 Blood Pressure 137/86 Pulse Oximetry 100 100 Oxygen Delivery Method Room Air Oxygen Flow Rate 0 Narrative Exam Narrative: General: Middle aged male sitting in bedside chair and in no acute distress, appears significantly older than stated age and frail, mildly anxious but otherwise appropriately interactive. HEENT: Normocephalic, atraumatic. External ears without defect. Pupils equal, round, and reactive to light. Anicteric sclerae, moist conjunctivae, and no lid lag. Oropharynx free of erythema and cobble stoning with moist mucosa. Neck: Supple with full range of motion. No lymphadenopathy or thyromegaly. Cardiovascular: Regular rate and rhythm without murmurs, rubs, or gallops appreciated. Pulmonary: Clear to auscultation bilaterally without crackles, wheezes, or rhonchi. Normal respiratory effort with no use of accessory muscles. Abdomen: Soft, bowel sounds present, nontender, nondistended. No hepatosplenomegaly or masses appreciated. Extremities: No clubbing, cyanosis, or edema. Right hip with dressing in place C/D/I without significant swelling or surrounding erythema. Skin: Normal temperature, turgor, and texture; no rash, ulcers, or subcutaneous nodules appreciated. Neurological: Cranial nerves grossly intact. Psychiatric: Mildly anxious mood and flat affect. Alert and oriented to person, place, and time. Objective Labs Result Diagrams: 11/05/19 05:39 11/04/19 05:10 Labs: Laboratory Results - last 24 hr 11/04/19 11/05/19 11:30 05:39 WBC 7.9 RBC 3.45 L Hgb 10.4 L Hct 30.4 L MCV 88.2 MCH 30.1 MCHC 34.1 RDW 13.8 Plt Count 228 Neut % (Auto) 68.3 Lymph % (Auto) 17.1 L Ceiba % (Auto) 13.6 Eos % (Auto) 0.8 L Baso % (Auto) 0.2 Neut # (Auto) 5400 Lymph # (Auto) 1400 Ceiba # (Auto) 1100 H Eos # (Auto) 100 Baso # (Auto) 0 COVID-19 PCR Negative Discharge Plan Discharge Plan Patient Disposition: SNF Transfer to: [facility] Under care of provider: director of enterprise architecture Discharge orders & Medications Prescriptions: New acetaminophen 325 mg Tablet 650 mg PO TID Qty: 90 RF: 0 polyethylene glycol 3350 17 gram Powder In Packet 17 gm PO DAILY Qty: 30 RF: 0 aspirin 81 mg Tablet,Delayed Release (Dr/Ec) 81 mg PO BID Qty: 80 RF: 0 bisacodyl 10 mg Suppository 10 mg RI DAILY PRN (Reason: Constipation) Qty: 10 RF: 0 docusate sodium [DOK] 100 mg Capsule 100 mg PO BID Qty: 60 RF: 0 oxycodone 5 mg Tablet 5 mg PO Q4-6H PRN (Reason: Pain, Moderate (4-6)) Qty: 10 RF: 0 calcium carbonate-vitamin D3 [Oyster Shell Calcium-Vit D3] 500 mg(1,250mg) -200 unit Tablet 1 ea PO BIDWM Qty: 60 RF: 0 Continued multivitamin [Multiple Vitamins] 1 EACH tablet 1 tab PO QDAY Qty: 0 RF: 0 Follow up/Referrals: Martín James MD [Primary Care Provider] - Clay Freitas MD [Physician] - 2 Weeks Diet/Activity/Treatments Diet: Regular Activity: Activity as tolerated with up WW nd protected partial weight bearing RLE. Continue anterior hip precautions. Cold/Heat Therapy: As needed to right hip Skin/Wound/Dressing Care Dressing: Leave in place until appointment [facility] Reason for rehabilitation: Post-operative therapy Rehab type: Physical therapy and Occupational therapy Visit Report/Discharge Packet Instructions: DI for Osteoporosis Discharge Data Primary Care Provider: Martín James
[2019-11-05] MEDS: CALCIUM CARB/VIT D3 500/200 TABLET 1 EACH PO (11:11)
[2019-11-06 10:16] LABS: Calcium 8.6 mg/dL (8.7-10.2); Parathyroid Hormone, Intact 42 pg/mL (15-65)
[2019-11-07 16:09] LABS: 1,25-Dihydroxy, Vitamin D-2 <10 pg/mL (.)
== END 2019-11-05 11:40 | DRG 470 ==
LOC: ED 11:23 → AC 11:28
PROVIDERS: Internal Medicine; Orthopaedic Surgery Adult Reconstructive Orthopaedic Surgery; Admitting Provider Internal Medicine; Emergency Provider Emergency Medicine; PCP Student in an Organized Health Care Education/Training Program; Referring Provider Emergency Medicine; Visit Provider Internal Medicine
PROC: 0SR9029 Replacement of Right Hip Joint with Metal on Polyethylene Synthetic Substitute, Cemented, Open Approach (ICD-10-PCS; CPT 27130; principal; 2019-11-02 17:15)
DX: M84.451A Pathological fracture, right femur, initial encounter for fracture (principal); D62 Acute posthemorrhagic anemia; R94.31 Abnormal electrocardiogram [ECG] [EKG]; E80.4 Gilbert syndrome; I10 Essential (primary) hypertension; D72.829 Elevated white blood cell count, unspecified; W18.30XA Fall on same level, unspecified, initial encounter; Z11.59 Encounter for screening for other viral diseases
CPT/HCPCS: 36415; 72170; 72192; 73502; 76000; 80048; 80053; 80076; 82306; 82310; 82550; 82652; 83036; 83735; 83970; 84443; 85025; 87635; 93005; 94760; 96374; 97110; 97116; 97161; 97165; 97530; 97535; 99284; C1776; J0330; J0690; J1100; J1170; J1885; J2270; J2405; J2704; J2795; J3010

== ENCOUNTER → 2023-02-02 07:00 | Outpatient (CLI) | payer BC, SELFPAY ==
[2023-01-09 08:02] VITALS: BMI 21.7
[2023-02-02 08:14] LABS: Add Manual Diff / Slide Review NO; Basophils Absolute Auto 0 /uL (0-100); Basophils Percent Auto 0.4 % (0-2); Eosinophils Absolute Auto 300 /uL (0-450); Eosinophils Percent Auto 4.2 % (2-4); Hemoglobin 14.8 g/dL (13.5-17.5); Lymphocytes Absolute Auto 2800 /uL (1100-4500); Lymphocytes Percent Auto 35.5 % (25-40); Mean Corpuscular HGB Conc 34.3 % (30-36); Mean Corpuscular Hemoglobin 30.2 PG (26-34); Monocytes Absolute Auto 800 /uL (0-900); Monocytes Percent Auto 10.3 % (3-14); Neutrophils Absolute Auto 3900 /uL (1500-7000); Neutrophils Percent Auto 49.6 % (50-75); Platelet Count 317 X10^3/uL (150-400); Red Blood Cell Count 4.89 X10^6/uL (4.5-5.9); Red Cell Distribution Width 13.8 % (11.6-14.8); White Blood Cell Count 7.9 X10^3/uL (4.5-11.0)
[2023-02-02 08:33] LABS: Alanine Aminotransferase 66 IU/L (<50); Albumin 4.1 g/dL (3.5-5.0); Albumin Globulin Ratio 1.5 (1.0-2.8); Alkaline Phosphatase 66 U/L (38-126); Aspartate Aminotransferase 41 IU/L (17-59); BUN Creatinine Ratio 16.5 (6-22); Bilirubin Total 1.2 mg/dL (0.2-1.3); Blood Urea Nitrogen 21 mg/dL (9-20); Calcium 10.1 mg/dL (8.4-10.2); Carbon Dioxide 27 mmol/L (22-32); Chloride 107 mmol/L (98-107); Cholesterol 188 mg/dL (140-199); Estimated Glomerular Filt Rate > 60 mL/min (>60); Globulin 2.7 g/dL (1.7-4.1); Glucose 92 mg/dL (70-100); HDL Cholesterol 32 mg/dL (40-60); HEMOLYSIS < 15 (0-50); LDL Cholesterol Calculated 120 mg/dL (<100); Potassium 4.6 mmol/L (3.4-5.1); Sodium 141 mmol/L (137-145); Total Protein 6.8 g/dL (6.3-8.2); Triglycerides 180 mg/dL (35-150)
== END ==
PROVIDERS: PCP Student in an Organized Health Care Education/Training Program; Referring Provider Student in an Organized Health Care Education/Training Program; Visit Provider Student in an Organized Health Care Education/Training Program
DX: I10 Essential (primary) hypertension (principal)
CPT/HCPCS: 36415; 80053; 80061; 85025

== ENCOUNTER → 2023-02-03 10:50 | Outpatient (CLI) | payer BC, SELFPAY ==
[2023-01-09 08:02] VITALS: BMI 21.7
--- NOTE | 2023-02-03 10:51 | DI.RAD.S_ITS ---
Bone Density Report Name: MARIA TERESA NORWOOD Age: 57 Sex: Male Ethnicity: White Date of : 1965 Indication: prior fracture; Referring Provider: LINDY BRIONES Study: Bone densitometry was performed. Exam Date: February 03, 2023 Accession number: [id number] Bone Density: Region BMD T-score Z-score Classification AP Spine(L1-L4) 0.710 -3.1 -2.9 Osteoporosis Femoral Neck (Left) 0.495 -3.2 -2.3 Osteoporosis Total Hip (Left) 0.576 -3.0 -2.6 Osteoporosis Total Forearm (Left) 0.517 -1.1 -2.6 Osteopenia 1/3 Forearm (Left) 0.641 -0.9 -2.6 Normal UD Forearm (Left) 0.371 -1.2 -2.1 Osteopenia World Health Organization criteria for BMD impression classify patients as: Normal (T-score at or above -1.0), Osteopenia (T-score between -1.0 and -2.5), or Osteoporosis (T-score at or below -2.5). 10-year Fracture Risk: FRAX not reported because: Some T-score for Spine Total or Hip Total or Femoral Neck at or below -2.5 Prior hip or vertebral fracture Impression: The patient has established osteoporosis, based on the Left Femoral Neck T-score and the existence of a prior fracture. The patient has risk factors, including: previous fracture. Discussion: HIGH RISK OF FRACTURE. BONE DENSITY IS UNDESIRABLY LOW AT ONE OR MORE SKELETAL SITES, CONSISTENT WITH OSTEOPOROSIS. This patient's lowest T-score, in a patient who has previously fractured, meets the World Health Organization's (WHO) criteria for severe osteoporosis. In untreated patients, the risk of osteoporotic fracture increases approximately two-fold for each 1.0 SD decrease in T-score. Low bone density is not the only risk factor for fracture; also consider factors such as patient's age, frailty or poor health, risk of falling, risk of injury, previous osteoporotic fracture, family history of osteoporosis, cigarette smoking, low body weight, etc. Not everyone with low bone mineral density has osteoporosis; osteomalacia and other metabolic bone disorders should also be considered. Patients who have osteoporosis should be evaluated for specific diseases and conditions (secondary causes) that may cause or contribute to bone loss. The National Osteoporosis Foundation (NOF) recommends pharmacologic intervention for men with BMD at this level (a T-score of -2.5 or below). The patient should follow a healthful lifestyle (good nutrition with adequate calcium and vitamin D, and appropriate weight-bearing exercise). Follow-Up: Consider a repeat BMD and Vertebral Fracture Assessment (VFA) exam in 2 years or sooner if medically necessary, to reassess this patient's status. Reported by: [facility] BISHOP M.D. on 02/03/2023 12:10:00 PM.
== END ==
PROVIDERS: PCP Student in an Organized Health Care Education/Training Program; Referring Provider Student in an Organized Health Care Education/Training Program; Visit Provider Student in an Organized Health Care Education/Training Program
DX: M81.0 Age-related osteoporosis without current pathological fracture
CPT/HCPCS: 77080; 77081

== ENCOUNTER → 2023-02-17 06:53 | Outpatient (CLI) | payer BC, SELFPAY ==
[2023-01-09 08:02] VITALS: BMI 21.7
[2023-02-17 09:20] LABS: BUN Creatinine Ratio 13.7 (6-22); Blood Urea Nitrogen 19 mg/dL (9-20); Carbon Dioxide 27 mmol/L (22-32); Chloride 106 mmol/L (98-107); Estimated Glomerular Filt Rate 59 mL/min (>60); Glucose 87 mg/dL (70-100); HEMOLYSIS < 15 (0-50); Potassium 4.8 mmol/L (3.4-5.1); Sodium 141 mmol/L (137-145)
== END ==
PROVIDERS: PCP Student in an Organized Health Care Education/Training Program; Referring Provider Student in an Organized Health Care Education/Training Program; Visit Provider Student in an Organized Health Care Education/Training Program
DX: R79.9 Abnormal finding of blood chemistry, unspecified (principal); R79.89 Other specified abnormal findings of blood chemistry; R74.8 Abnormal levels of other serum enzymes
CPT/HCPCS: 36415; 80048

== ENCOUNTER → 2023-04-13 07:05 | Outpatient (CLI) | payer BC, SELFPAY ==
[2023-01-09 08:02] VITALS: BMI 21.7
[2023-04-13 07:52] LABS: Alanine Aminotransferase 67 IU/L (<50); Albumin 4.1 g/dL (3.5-5.0); Albumin Globulin Ratio 1.5 (1.0-2.8); Alkaline Phosphatase 62 U/L (38-126); Aspartate Aminotransferase 43 IU/L (17-59); BUN Creatinine Ratio 11.7 (6-22); Bilirubin Total 1.5 mg/dL (0.2-1.3); Blood Urea Nitrogen 16 mg/dL (9-20); Calcium 9.3 mg/dL (8.4-10.2); Carbon Dioxide 26 mmol/L (22-32); Chloride 105 mmol/L (98-107); Estimated Glomerular Filt Rate 60 mL/min (>60); Globulin 2.8 g/dL (1.7-4.1); Glucose 95 mg/dL (70-100); HEMOLYSIS < 15 (0-50); Potassium 4.6 mmol/L (3.4-5.1); Sodium 141 mmol/L (137-145); Total Protein 6.9 g/dL (6.3-8.2)
== END ==
PROVIDERS: PCP Student in an Organized Health Care Education/Training Program; Referring Provider Student in an Organized Health Care Education/Training Program; Visit Provider Student in an Organized Health Care Education/Training Program
DX: I10 Essential (primary) hypertension (principal)
CPT/HCPCS: 36415; 80053

== ENCOUNTER → 2023-08-13 07:06 | Outpatient (CLI) | payer OTHER, SELFPAY ==
[2023-01-09 08:02] VITALS: BMI 21.7
[2023-08-13 08:44] LABS: Alanine Aminotransferase 55 IU/L (<50); Albumin 4.4 g/dL (3.5-5.0); Albumin Globulin Ratio 1.9 (1.0-2.8); Alkaline Phosphatase 51 U/L (38-126); Aspartate Aminotransferase 39 IU/L (17-59); BUN Creatinine Ratio 10.2 (6-22); Bilirubin Total 1.5 mg/dL (0.2-1.3); Blood Urea Nitrogen 13 mg/dL (9-20); Carbon Dioxide 27 mmol/L (22-32); Chloride 108 mmol/L (98-107); Cholesterol 108 mg/dL (140-199); Estimated Glomerular Filt Rate > 60 mL/min (>60); Globulin 2.3 g/dL (1.7-4.1); Glucose 89 mg/dL (70-100); HDL Cholesterol 40 mg/dL (40-60); HEMOLYSIS < 15 (0-50); LDL Cholesterol Calculated 40 mg/dL (<100); Potassium 4.3 mmol/L (3.4-5.1); Sodium 140 mmol/L (137-145); Total Protein 6.7 g/dL (6.3-8.2); Triglycerides 140 mg/dL (35-150)
== END ==
PROVIDERS: PCP Student in an Organized Health Care Education/Training Program; Referring Provider Family Medicine; Visit Provider Family Medicine
DX: E78.5 Hyperlipidemia, unspecified (principal); E55.9 Vitamin D deficiency, unspecified; I10 Essential (primary) hypertension
CPT/HCPCS: 36415; 80053; 80061

== ENCOUNTER → 2024-04-12 09:27 | Outpatient (CLI) | payer OTHER, SELFPAY ==
[2023-01-09 08:02] VITALS: BMI 21.7
--- NOTE | 2024-04-12 09:28 | DI.RAD.S_ITS ---
PROCEDURE: XR CERVICAL SPINE 4V OR 5V INDICATIONS: Cervical radiculopathy TECHNIQUE: 5 views of the cervical spine were acquired. COMPARISON: None. FINDINGS: Bones: No fractures or dislocations to the T1 level. No suspicious bony lesions. Multilevel degenerative changes are present with most prominent disc space narrowing at C4-5. There is normal range of motion between flexion and extension, with preserved normal bony alignment. Soft tissues: Prevertebral soft tissues are normal in thickness. IMPRESSION: Most prominent degenerative change at C4-5. Dictated by: Sofía Thacker M.D. on 04/12/2024 at 10:06 Approved by: Sofía Thacker M.D. on 04/12/2024 at 10:06
== END ==
PROVIDERS: PCP Student in an Organized Health Care Education/Training Program; Referring Provider Physician Assistant Surgical; Visit Provider Physician Assistant Surgical
DX: M47.22 Other spondylosis with radiculopathy, cervical region (principal)
CPT/HCPCS: 72050

== ENCOUNTER 2024-04-28 11:48 | Emergency (ER) | payer OTHER, SELFPAY ==
[2023-01-09 08:02] VITALS: BMI 21.7
[2024-04-28 11:55] VITALS: BP 163/90; PULSE 88; RESP 20; TEMP 36.4; O2SAT 100; BMI 23.7
--- NOTE | 2024-04-28 14:33 | ED_ITS ---
HPI - Back Pain/Injury <Khushi Reyes PA-C - Last Filed: 04/28/24 16:17> General Chief Complaint: Back Pain/Injury Stated Complaint: Neck and bilateral shoulder pain Time Seen by Provider: 04/28/24 14:32 Source: patient History of Present Illness HPI Narrative: Mr. Barreto is a pleasant 58-year-old R hand dominant male with a past medical history of hyperlipidemia, recurrent kidney stones, osteoporosis, hypertension, GERD, migraine, CKD who presents to the emergency department for neck and bilateral shoulder pain x multiple weeks, worse over the last 2 days. Patient was seen in the walk-in clinic on 04/12 and at that time was diagnosed with cervical radiculopathy of the left side, cervical x-ray revealed multilevel degenerative changes most prominent at C4-C5. He was prescribed Flexeril and reports that that helped and resolved his pain on the left side however 2 days ago he started developing pain on the right side. There was no injury. He denies headache, fevers, recent illness. Describes severe pain primarily over the right shoulder blade that occasionally radiates down the arm. He took an old hydrocodone-acetaminophen earlier today that did not help his pain at all. He denies numbness tingling or weakness in the extremities. No chest pain shortness of breath or abdominal pain. He did not take his daily antihypertensives. Related Data Home Medications Medication Instructions Recorded Confirmed multivitamin with iron (Daily 1 tab PO DAILY 01/27/23 04/12/24 Multiple Vitamins with Iron tablet) cholecalciferol (vitamin D3) 625 625 mcg PO QWEEK 03/30/23 04/12/24 mcg (25,000 unit) capsule Previous Rx's Medication Instructions Recorded rosuvastatin 10 mg tablet 10 mg PO DAILY #30 tabs 11/30/23 amlodipine 5 mg tablet 5 mg PO DAILY #90 tabs 12/29/23 alendronate 10 mg tablet 10 mg PO QAM #90 tabs 02/02/24 cyclobenzaprine 10 mg tablet 10 mg PO BID PRN muscle spasm #30 04/12/24 tabs cyclobenzaprine 10 mg tablet 10 mg PO TID PRN muscle spasm #30 04/28/24 tabs lidocaine 5 % topical patch 1 patch topical DAILY #30 ea 04/28/24 (Lidoderm) prednisone 20 mg tablet 20 mg PO DAILY 5 days #5 tabs 04/28/24 Allergies Allergy/AdvReac Type Severity Reaction Status Date / Time No Known Drug Allergies Allergy Verified 04/12/24 08:54 Review of Systems <Khushi Reyes PA-C - Last Filed: 04/28/24 16:17> Review of Systems ROS Unobtainable: All systems reviewed & are unremarkable except as noted in HPI and below Patient History <Khushi Reyes PA-C - Last Filed: 04/28/24 16:17> Medical History (Updated 04/28/24 @ 16:14 by Khushi Reyes PA-C) Migraines Tinnitus Hearing loss (~2014) Kidney stones (~1993) Hemorrhoid GERD (gastroesophageal reflux disease) (~1994) Hypertension (~2011) Surgical History Anesthesia History of third molar tooth extraction Status post hernia repair Social History household members: none Smoking Status: Never smoker alcohol intake: never substance use type: does not use Smoking Status: Never smoker alcohol intake frequency: 0-2 drinks per day Exam <Khushi Reyes PA-C - Last Filed: 04/28/24 16:17> Narrative Exam Narrative: GENERAL: 58 year old patient appears stated age. Well-developed patient, in no acute distress. HEAD: Atraumatic. Normocephalic. NECK: Trachea midline. Cervical ROM intact. No tenderness to palpation midline cervical spine. CARDIOVASCULAR: Regular rate and rhythm. Strong radial pulses bilaterally. RESPIRATORY: ?Nonlabored respirations. ?Speaking in clear, full sentences. EXTREMITIES: No edema or joint tenderness. Full bilateral abduction of shoulders. BACK: No midline spinal tenderness. He does have subjective tenderness to palpation over the right superior scapular/trapezius region. NEURO: AOx3. ?Clear speech. ?Moves all 4 extremities appropriately. Both 5/5 strength and sensation intact to light touch in distribution of median, ulnar, radial nerves bilaterally. SKIN: No rash or erythema of visible areas Initial Vital Signs Initial Vital Signs: Vital Signs Temperature 97.6 F 04/28/24 11:55 Pulse Rate 88 04/28/24 11:55 Respiratory Rate 20 04/28/24 11:55 Blood Pressure 163/90 H 04/28/24 11:55 Pulse Oximetry 100 04/28/24 11:55 Oxygen Delivery Method Room Air 04/28/24 11:55 <Martin Hernandez MD - Last Filed: 04/28/24 16:38> Initial Vital Signs Initial Vital Signs: Vital Signs Temperature 97.6 F 04/28/24 11:55 Pulse Rate 88 04/28/24 11:55 Respiratory Rate 20 04/28/24 11:55 Blood Pressure 163/90 H 04/28/24 11:55 Pulse Oximetry 100 04/28/24 11:55 Oxygen Delivery Method Room Air 04/28/24 11:55 Course <Khushi Reyes PA-C - Last Filed: 04/28/24 16:17> Orders Ordered: Discontinued Medications Acetaminophen (Acetaminophen 325 Mg Tablet) 975 mg PO NOW ONE Stop: 04/28/24 14:51 Last Admin: 04/28/24 15:08 Dose: 975 mg Documented By: SPF Cyclobenzaprine HCl (Cyclobenzaprine 10 Mg Tablet) 10 mg PO NOW ONE Stop: 04/28/24 14:51 Last Admin: 04/28/24 15:08 Dose: 10 mg Documented By: SPF Ketorolac Tromethamine (Ketorolac 30 Mg/Ml Vial) 15 mg IM NOW ONE Stop: 04/28/24 14:51 Last Admin: 04/28/24 15:07 Dose: 15 mg Documented By: SPF Lidocaine (Lidocaine 5% Patch) 1 each TOP NOW ONE Stop: 04/28/24 14:51 Last Admin: 04/28/24 15:07 Dose: 1 each Documented By: SPF Prednisone (Prednisone 20 Mg Tablet) 40 mg PO NOW ONE Stop: 04/28/24 14:51 Last Admin: 04/28/24 15:08 Dose: 40 mg Documented By: SPF Vital Signs Vital signs: Vital Signs - 8 hr 04/28/24 11:55 04/28/24 16:32 Temperature 97.6 F Pulse Rate 88 85 Respiratory Rate 20 14 Blood Pressure 163/90 H 155/97 H Pulse Oximetry 100 98 Oxygen Delivery Method Room Air Room Air <Martin Hernandez MD - Last Filed: 04/28/24 16:38> Orders Ordered: Discontinued Medications Acetaminophen (Acetaminophen 325 Mg Tablet) 975 mg PO NOW ONE Stop: 04/28/24 14:51 Last Admin: 04/28/24 15:08 Dose: 975 mg Documented By: GISSELLE Cyclobenzaprine HCl (Cyclobenzaprine 10 Mg Tablet) 10 mg PO NOW ONE Stop: 04/28/24 14:51 Last Admin: 04/28/24 15:08 Dose: 10 mg Documented By: GISSELLE Ketorolac Tromethamine (Ketorolac 30 Mg/Ml Vial) 15 mg IM NOW ONE Stop: 04/28/24 14:51 Last Admin: 04/28/24 15:07 Dose: 15 mg Documented By: GISSELLE Lidocaine (Lidocaine 5% Patch) 1 each TOP NOW ONE Stop: 04/28/24 14:51 Last Admin: 04/28/24 15:07 Dose: 1 each Documented By: GISSELLE Prednisone (Prednisone 20 Mg Tablet) 40 mg PO NOW ONE Stop: 04/28/24 14:51 Last Admin: 04/28/24 15:08 Dose: 40 mg Documented By: GISSELLE Vital Signs Vital signs: Vital Signs - 8 hr 04/28/24 11:55 04/28/24 16:32 Temperature 97.6 F Pulse Rate 88 85 Respiratory Rate 20 14 Blood Pressure 163/90 H 155/97 H Pulse Oximetry 100 98 Oxygen Delivery Method Room Air Room Air MDM - Back Pain/Injury <Khushi Reyes PA-C - Last Filed: 04/28/24 16:17> Medical Records Attestation: I reviewed the patient's medical records. Imaging Data Cervical X-Ray: Radiologist's Impression: PROCEDURE: XR CERVICAL SPINE 4V OR 5V INDICATIONS: Cervical radiculopathy TECHNIQUE: 5 views of the cervical spine were acquired. COMPARISON: None. FINDINGS: Bones: No fractures or dislocations to the T1 level. No suspicious bony lesions. Multilevel degenerative changes are present with most prominent disc space narrowing at C4-5. There is normal range of motion between flexion and extension, with preserved normal bony alignment. Soft tissues: Prevertebral soft tissues are normal in thickness. IMPRESSION: Most prominent degenerative change at C4-5. MDM Narrative Medical decision making narrative: 58-year-old R hand dominant male with a past medical history of hyperlipidemia, recurrent kidney stones, osteoporosis, hypertension, GERD, migraine, CKD who presents to the emergency department for neck and bilateral shoulder pain x multiple weeks, worse over the last 2 days. Differential diagnosis includes but is not limited to muscle spasm, cervical strain, cervical radiculopathy, etc. On exam patient is in no acute distress, nontoxic appearing, vital signs appropriate except for mildly elevated blood pressure. He is having right posterior neck/shoulder blade pain occasionally radiating down the right arm consistent with cervical radiculopathy. He had a cervical x-ray performed on 04/12/2024 which revealed cervical degenerative disc disease. His symptoms imp roved at time with Flexeril however they have returned but are worse this time on the right. We will proceed with 1 time dose of 15 mg IM Toradol, 40 mg prednisone, acetaminophen, Lidoderm, Flexeril. He has a ride home. He has had no trauma and upper extremities are neurovascularly intact, no indication for repeat imaging at this time. Patient provided with a copy of his cervical x-ray. Pt is feeling improved after ED treatment. We will prescribe him course of prednisone, cyclobenzaprine, lidocaine patches and recommended follow up with PCP within the next week for further evaluation. He would likely benefit from ortho spine evaluation and physical therapy. We discussed strict ED return precautions. Recommended he take acetaminophen in addition to prescriptions, but we will not recommend regular NSAIDs given his history of CKD. Advised heat therapy and gentle stretches. He verbalized understanding of all information is agreeable to the plan. He understands risks of muscle relaxers. He is stable for discharge home. Discharge Plan Departure Patient Disposition: Home Clinical Impression: Right cervical radiculopathy Instructions: DI for Cervical Radiculopathy Activity Restrictions/Additional Instructions: Thank you for coming to the emergency department. Today you were treated with anti-inflammatory pain medication, steroids, Tylenol, Lidoderm and muscle relaxer. I have sent prescriptions for muscle relaxer, Lidoderm, prednisone (steroid) to your pharmacy. Please take acetaminophen/Tylenol with these medications as well. Please perform gentle stretching and movement of your neck as well as using heat therapy to help loosen up the muscles. I recommend she follow up with your primary care doctor as soon as possible for further evaluation. Please return to the emergency department if you develop any new or worsening symptoms, numbness tingling or weakness or other concerns. Please follow up with your primary care doctor within the next 2-3 days for ER follow-up. (If you do not have a PCP you can call [phone]. ?to schedule an appointment with an [facility] Primary Care Provider) IF YOU DEVELOP ANY NEW OR WORSENING SYMPTOMS, RETURN TO THE ER! Please read the attached instructions, they highlight more specific treatments and interventions for you at home. Thank you for letting me participate in your care, Khushi Reyes PA-C Prescriptions: New cyclobenzaprine 10 mg tablet 10 mg PO TID PRN (Reason: muscle spasm) Qty: 30 0RF lidocaine [Lidoderm] 5 % adhesive patch,medicated 1 patch topical DAILY Qty: 30 0RF Rx Instructions: leave on most painful area for up to 12 hrs prednisone 20 mg tablet 20 mg PO DAILY 5 Days Qty: 5 0RF No Action multivitamin with iron [Daily Multiple Vitamins/Iron] Tablet 1 tab PO DAILY cholecalciferol (vitamin D3) 625 mcg (25,000 unit) capsule 625 mcg PO QWEEK amlodipine 5 mg tablet 5 mg PO DAILY Qty: 90 3RF cyclobenzaprine 10 mg tablet 10 mg PO BID PRN (Reason: muscle spasm) Qty: 30 0RF Rx Instructions: Caution with operating machinery as medication can cause sedation. rosuvastatin 10 mg tablet 10 mg PO DAILY Qty: 30 5RF alendronate 10 mg tablet 10 mg PO QAM Qty: 90 3RF Referrals: Ibis Nunez MD [Primary Care Provider] - Stand Alone Forms: Patient Portal/API/Survey ED Sign-out <Martin Hernandez MD - Last Filed: 04/28/24 16:38> [facility] I was immediately available in the department for consultation. ?This docu mentation has been reviewed and I agree with assessment and plan. Supervised by Martin Hernandez MD
[2024-04-28] MEDS: LIDOCAINE 5% PATCH 1 EACH TOP (15:07)
[2024-04-28] MEDS: KETOROLAC 30 MG/ML VIAL 15 MG IM (15:07)
[2024-04-28] MEDS: CYCLOBENZAPRINE 10 MG TABLET PO (15:08)
[2024-04-28] MEDS: predniSONE 20 MG TABLET 40 MG PO (15:08)
[2024-04-28] MEDS: ACETAMINOPHEN 325 MG TABLET 975 MG PO (15:08)
[2024-04-28 16:32] VITALS: BP 155/97; PULSE 85; RESP 14; O2SAT 98
--- NOTE | 2024-04-28 16:34 | PC.NURSE ---
pt think he is having degenerative joint issues with his should and finger after being seen by his doctor and given an xray that shows he had a cervical disc degen. issue. He states today its worse than its been. He reports feeling somewhat better after the medication.
== END 2024-04-28 16:33 | disposition home or self-care (01) ==
PROVIDERS: Emergency Provider Physician Assistant; PCP Student in an Organized Health Care Education/Training Program
DX: M54.12 Radiculopathy, cervical region (principal)
CPT/HCPCS: 96372; 99283; 99284; J1885

== ENCOUNTER → 2024-05-05 16:57 | Outpatient (CLI) | payer OTHER, SELFPAY ==
[2023-01-09 08:02] VITALS: BMI 21.7
[2024-05-05 17:36] LABS: C-Reactive Protein Quant < 0.5 mg/dL (<1.0)
[2024-05-05 17:37] LABS: Erythrocyte Sedimentation Rate 33 MM/HR (0-15)
== END ==
PROVIDERS: PCP Student in an Organized Health Care Education/Training Program; Referring Provider Student in an Organized Health Care Education/Training Program; Visit Provider Student in an Organized Health Care Education/Training Program
DX: M25.519 Pain in unspecified shoulder (principal)
CPT/HCPCS: 36415; 85651; 86140

== ENCOUNTER → 2024-06-07 07:07 | Outpatient (CLI) | payer OTHER, SELFPAY ==
[2023-01-09 08:02] VITALS: BMI 21.7
[2024-06-07 08:02] LABS: Erythrocyte Sedimentation Rate 3 MM/HR (0-15)
== END ==
PROVIDERS: Family Provider Student in an Organized Health Care Education/Training Program; PCP Student in an Organized Health Care Education/Training Program; Referring Provider Student in an Organized Health Care Education/Training Program; Visit Provider Student in an Organized Health Care Education/Training Program
DX: M35.3 Polymyalgia rheumatica (principal)
CPT/HCPCS: 36415; 85651

== ENCOUNTER 2024-07-18 09:45 | Outpatient (RCR) | payer OTHER, SELFPAY ==
[2023-01-09 08:02] VITALS: BMI 21.7
--- NOTE | 2024-05-31 19:12 | PT.OIE ---
Current Diagnoses Pain in right shoulder (05/31/24) Radiculopathy, cervical region (05/31/24) Muscle weakness (generalized) (05/31/24) Past Medical History (Last Updated 05/05/24 @ 17:02 by Ibis Nunez MD) GERD (gastroesophageal reflux disease) (~1994) Hearing loss (~2014) Hemorrhoid Hypertension (~2011) Kidney stones (~1993) Migraines Tinnitus Past Surgical History (Last Reviewed 04/28/24 @ 14:53 by Khushi Reyes PA-C) Anesthesia History of third molar tooth extraction Status post hernia repair Visit Care Team Role Provider Type Ibis Nunez MD Attending Provider Physician Family Provider Primary Care Provider Referring Provider Specialty: Family Practice Obstetrics Address: [address] [place] [address], [facility] Email: [email or web address] Physical Therapy Initial Evaluation PT-OP-A Visit Information Start: 05/19/24 19:31 Freq: Status: Active Protocol: Document 05/31/24 09:03 LRN (Rec: 05/31/24 12:06 LRN [id number]) Out-Patient Physical Therapy Visit Information Visit Information Visit Type Initial Evaluation Visit Start Time 09:03 Visit Stop Time 09:49 Visit Number 03/16 (25 max PT/OT/ST) Evaluation Information Evaluation Date 05/31/24 Precautions Precautions R KEERTHI 11/2019, HTN 2011. PT-OP-B Current Condition Start: 05/19/24 19:31 Freq: Status: Active Protocol: Document 05/31/24 09:03 LRN (Rec: 05/31/24 12:06 LRN [id number]) Current Condition History of Current Condition Onset Date 04/28/24 Current Complaints Soreness in R brachium and R index finger, numb in dorsal hand. History of Current Condition Pt states his problems started with L shoulder pain onset a few weeks prior to onset of R shoulder pain. His L shoulder pain was severe, but he states in ER he was given many medications that cleared his L shoulder pain, then his camp recreation specialist gave him hydrocodone for the R shoulder pain. Pt believes his R shoulder pain started because he got a new car and did not adjust the seat to optimal condition and he was doing a lot of work on a computer. He had R posterior shoulder pain in the area of the R scapula, and now c/o only soreness in R triceps and lateral elbow and top of foream and numbness in index finger and back of hand (wrist to MCP jts). His handwriting is a little impaired due to numbness of the R index finger. He feels he has recovered such that he doesn't feel he needs PT for the R shoulder, but would like to know what to do to prevent flair up and what to do if he has a flair up. He is agreeable to having PT to reduce the stiffness of his R arm and improve his arm strength. Currently he is taking Prednisone that he will start to taper off over a 3 wk period. States a week ago he couldn't floss teeth, and had difficulty showering. Prior Treatments and Tests 04/28/24 Cervical x-ray: multilevel degenerative changes most prominent at C4- C5. Developmental History Developmental History A few weeks prior to onset of R shoulder pain he had severe L shoulder pain that took him to the seek care in the ER. He states the ER radiologist imaging showed cervical radiculopathy. His primary doctor a week later dx'd him with polymyalgia rheumatica. He will have been on 30 days of steroids (prednisone) after the next 5 days. Treatment Goals Patient/Caregiver Goals Pt goals: - normalization of hand sensation. - learn what to do to prevent flair up. - learn what to do if he has a flair up. - improve abilities of: Driving R arm tightens up), Not able to squeegy the shower due to increased tightness of R arm with use (now letting it air dry), and reaching low shelf in frig for water pitcher and pouring water with non-dominant L arm because of shoulder pain/stiffness in the arm. 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 Osteoporosis. R KEERTHI 11/2019 PT-OP-C Subjective Start: 05/19/24 19:31 Freq: Status: Active Protocol: Document 05/31/24 09:03 SONUN (Rec: 05/31/24 12:06 SONUN [id number]) Patient Questionnaires Quick Dash- Upper Extremity Quick Dash UE Score 15.9 Quick Dash UE Impairment 1 to 19% Impaired (Score 1-19) OP-PT Pain Assessment Pain Assessment Grid Paper Pain Assessment Grid Completed Yes Location R shoulder Pain Location Details Posterior R shoulder Intensity 0 Scale Used Numeric (0 - 10) PT-OP-E Functional Tests Start: 05/19/24 19:31 Freq: Status: Active Protocol: Document 05/31/24 09:03 LRN (Rec: 05/31/24 12:06 LRN [id number]) Functional Tests Apley's Scratch Test Action 1- Left medial border of opp scap (in middle of scap) Action 1- Right medial border of opp scap (1/[address] down scap) Action 2- Left T3 Action 2- Right T3 Action 3- Left T6 Action 3- Right T7 PT-OP-F Manual Assessment Start: 05/19/24 19:31 Freq: Status: Active Protocol: Document 05/31/24 09:03 LRN (Rec: 05/31/24 12:06 LRN [id number]) Manual Assessments Soft Tissue Assessment Soft Tissue Mobility Assessment Atrophy of R UT and upper Rhomboids, R brachium (triceps ) PT-OP-H Neuro Start: 05/19/24 19:31 Freq: Status: Active Protocol: Document 05/31/24 09:03 LRN (Rec: 05/31/24 12:06 LRN [id number]) Sensation Evaluation Gross Sensation Gross Sensation Right UE Impaired Sensation Description Numbness Comments Summary Comments Numbness of in index finger and back of hand (wrist to MCP jts). Initially had pins & needles sensation. PT-OP-J Posture/Palpation/Skin Start: 05/19/24 19:31 Freq: Status: Active Protocol: Document 05/31/24 09:03 LRN (Rec: 05/31/24 12:06 LRN [id number]) Posture Evaluation Position Standing Head/C-Spine Posture Forward Head L-Spine Posture Shifted Left Shoulder Posture (R) Forward,(R) Elevated Scapula Posture (R) Elevated Comments Posture Comments Head shifted left, decreased Cervical spine curvature, mild increased dowagers hump. PT-OP-K Range of Motion Start: 05/19/24 19:31 Freq: Status: Active Protocol: Document 05/31/24 09:03 LRN (Rec: 05/31/24 12:06 LRN [id number]) Cervical Spine Range of Motion Cervical Spine Passive Percentage Testing Position Supine Rotation Left 100 Rotation Right 100 Lateral Flexion Left 90 Lateral Flexion Right 100 ROM Limitations Soft Tissue Tightness Shoulder Goniometric Range of Motion Shoulder Right Active Shoulder ROM WFL No Testing Position Sitting Flexion 140 Abduction 180 External Rotation at 0 degrees Abduction 90 Left Active Testing Position Sitting Flexion 150 Abduction 180 External Rotation at 90 degrees 90 Abduction PT-OP-L Special Tests Start: 05/19/24 19:31 Freq: Status: Active Protocol: Document 05/31/24 09:03 LRN (Rec: 05/31/24 12:06 LRN [id number]) Special Tests Shoulder Special Tests IR/Horizontal ADD Impingement Test Results - R Elevation Impingement Test Results - R Belly Press Test Results - torey PT-OP-M Strength Start: 05/19/24 19:31 Freq: Status: Active Protocol: Document 05/31/24 09:03 LRN (Rec: 05/31/24 12:06 LRN [id number]) Cervical Spine Strength Cervical Spine Manual Muscle Testing Testing Position Sitting Comments Strength is 5/5. Shoulder Strength Shoulder Manual Muscle Testing Right Comments Strength is 5/5. Left Comments Strength is 5/5. Elbow/Forearm Strength Elbow and Forearm Manual Muscle Testing Left Comments Strength is 5/5. Right Extension (C7) 3 Fair Comments Strength is 5/5 except as indicated above. Wrist Strength Wrist Manual Muscle Testing Right Comments Strength is 5/5. Left Comments Strength is 5/5. Hand Survey Superintendent/Pinch Strength Hand Dominance Hand Dominance Right PT-OP-Q Treatments Start: 05/19/24 19:31 Freq: Status: Active Protocol: Document 05/31/24 09:03 LRN (Rec: 05/31/24 12:06 LRN [id number]) Therapeutic Activity Therapeutic Activity Posture training Name Sitting posture training for head over shoulders, lumbar/ thoracic posturing Reps/Minutes 4' Comments Phys & v cuing needed during training to remind pt to correct flexed lumbar spine, thoracic kyphosis and improve forward head posturing (Cued to reach head to ceiling). Self-Care/Home Management Treatment Education Other Education Discussed results of evaluation, goals, treatment, and plan of care (POC) with pt ; pt agreeable to evaluation, goals, treatment, and POC. Discussed areas needed for postural correction (level of pelvis and shoulders, lumbar and cervical shift left, possibly due to R KEERTHI high, although not notable in standing. Activities Self-Care/Home Management Activities I/S pt to improve postural awareness and make corrections as per posture training. PT-OP-T Assessment and Plan Start: 05/19/24 19:31 Freq: Status: Active Protocol: Document 05/31/24 09:03 LRN (Rec: 05/31/24 12:06 LRN [id number]) Physical Therapy Assessment Rehab Potential Rehabilitation Potential Good Evaluation Complexity Number of Personal Factors/Comorbidities 1-2 Number of Body Systems Impaired 4 or More Clinical Presentation at Evaluation Evolving Impairments Impairments Activity Tolerance,Functional Activities,Posture,ROM,Soft Tissue Mobility,Strength Goals Three Impairment Decreased R hand/index finger sensation (numbness) Short Term Goal (STG) Pt will be educated in proper sit/stand posture (wall and away from wall) and will be able to demonstrate ability to correct for good sitting/ standing posture of head on shoulders. STG Duration 06/21/24 Penitentiary Goal (LTG) Normalization R hand/index finger sensation. LTG Duration 07/21/24 Two Impairment Decreased R triceps strength and UE function Short Term Goal (STG) Improve R triceps strength to 4/5, with ability to easily push with his arms with sit<> stand transfer and be able to use squeegy for the shower w/o increased tightness of R arm with use. STG Duration 06/21/24 Hosiery Pairer Goal (LTG) Improve R triceps strength to 5/[address] w/o the R arm tightening and reach a pitcher on a low shelf (in fridge) and pour water using his R arm w/o shoulder pain or stiffness in the R arm. LTG Duration 07/21/24 One Impairment Pt lacks appropriate self care HEP. Short Term Goal (STG) Pt will be educated and able to position head/neck/UE for proper night time sleeping posturing to prevent onset of UE pain flair up. STG Duration 06/21/24 Hosiery Pairer Goal (LTG) Pt will be independent on a HEP of posture ex's for the neck/shoulder/thoracic/lumbar spine to prevent shoulder/UE pain flair up (deep cervical neck maria fernanda & thoracic/lumbar ext). LTG Duration 07/21/24 Assessment Summary Assessment Pt is a 59 yo male with diminishing symptoms of cervical radiculopathy (C7/T1) that started 04/28/24, now diagnosed with polymyalgia rheumatica. His posterior R shoulder pain resolved with medications (will be tapering off of prednisone starting at end of week). His current symptoms are weakness/ stiffness/soreness of R triceps (posterior brachium), lateral elbow, and top of foream; numbness in the R dorsal hand from wrist to MCP jts and index finger, and mildly decreased R shoulder mobility. He demonstrates poor posturing that will likely hinder his progress. The pt is very attentive and appears to have a good understanding and positive attitude towards posture training today. The pt will benefit from skilled physical therapy to work towards acheiving the above stated goals. Physical Therapy Plan Frequency and Duration Frequency of Treatment 2x/Week Duration of treatment (weeks) 7 Plan of Care Start Date 05/31/24 Plan of Care End Date 07/21/24 Therapeutic Interventions Therapeutic Interventions Home Exercise Program,Joint Mobilizations,Manual Therapy, Neuromuscular Re-education, Self-Care/Home Management,Soft Tissue Mobilization,Taping, Therapeutic Activities, Therapeutic Exercises Modalities Cold Pack/Ice Massage,Electric Stimulation,Hot Packs Next Visit Focus/Plan Next Note Type Treatment Note Next Visit Plan Next: Check hand sensation ( radial/median n), UE DTRs and child care cook strength. Review sitting posture and educate in proper sit/stand posture against and away from wall, and proper posture with hip hinging for working at computer. POC: Therapeutic Ex (triceps strengthening, C. maria fernanda & scapular/shdr stabilizers, postural strengthening, ROM: shoulder (flex, IR), cervical SB, thoracic & lumbar ext, when appropriate UE neural glides), Therapeutic Activity (hip hinging w/proper head/ neck positioning training - use dowel stick and wall), manual therapy (C tx), Pt Education (HEP, pain mgmt, nighttime positioning) modalities MH to improve numbness.
--- NOTE | 2024-06-02 09:42 | PT.OTN ---
Current Diagnoses Pain in right shoulder (06/02/24) Radiculopathy, cervical region (06/02/24) Muscle weakness (generalized) (06/02/24) Physical Therapy Treatment Note PT-OP-A Visit Information Start: 05/19/24 19:31 Freq: Status: Active Protocol: Document 06/02/24 07:32 LRN (Rec: 06/02/24 08:18 LRN [id number]) Out-Patient Physical Therapy Visit Information Visit Information Visit Type Treatment Note Visit Start Time 07:31 Visit Stop Time 08:14 Visit Number 04/16 (25 max PT/OT/ST) Evaluation Information Evaluation Date 05/31/24 Precautions Precautions R KEERTHI 11/2019, HTN 2011. PT-OP-B Current Condition Start: 05/19/24 19:31 Freq: Status: Active Protocol: Document 05/31/24 09:03 LRN (Rec: 05/31/24 12:06 LRN [id number]) Current Condition History of Current Condition Onset Date 04/28/24 Current Complaints Soreness in R brachium and R index finger, numb in dorsal hand. History of Current Condition Pt states his problems started with L shoulder pain onset a few weeks prior to onset of R shoulder pain. His L shoulder pain was severe, but he states in ER he was given many medications that cleared his L shoulder pain, then his sawmilling operator gave him hydrocodone for the R shoulder pain. Pt believes his R shoulder pain started because he got a new car and did not adjust the seat to optimal condition and he was doing a lot of work on a computer. He had R posterior shoulder pain in the area of the R scapula, and now c/o only soreness in R triceps and lateral elbow and top of foream and numbness in index finger and back of hand (wrist to MCP jts). His handwriting is a little impaired due to numbness of the R index finger. He feels he has recovered such that he doesn't feel he needs PT for the R shoulder, but would like to know what to do to prevent flair up and what to do if he has a flair up. He is agreeable to having PT to reduce the stiffness of his R arm and improve his arm strength. Currently he is taking Prednisone that he will start to taper off over a 3 wk period. States a week ago he couldn't floss teeth, and had difficulty showering. Prior Treatments and Tests 04/28/24 Cervical x-ray: multilevel degenerative changes most prominent at C4- C5. Developmental History Developmental History A few weeks prior to onset of R shoulder pain he had severe L shoulder pain that took him to the seek care in the ER. He states the ER radiologist imaging showed cervical radiculopathy. His primary doctor a week later dx'd him with polymyalgia rheumatica. He will have been on 30 days of steroids (prednisone) after the next 5 days. Treatment Goals Patient/Caregiver Goals Pt goals: - normalization of hand sensation. - learn what to do to prevent flair up. - learn what to do if he has a flair up. - improve abilities of: Driving R arm tightens up), Not able to squeegy the shower due to increased tightness of R arm with use (now letting it air dry), and reaching low shelf in frig for water pitcher and pouring water with non-dominant L arm because of shoulder pain/stiffness in the arm. 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 Osteoporosis. R KEERTHI 11/2019 PT-OP-C Subjective Start: 05/19/24 19:31 Freq: Status: Active Protocol: Document 06/02/24 07:32 LRN (Rec: 06/02/24 08:18 LRN [id number]) OP-PT Subjective Patient Comments Patient Comments No change,numbness the same in the R hand. PT-OP-E Functional Tests Start: 05/19/24 19:31 Freq: Status: Active Protocol: Document 05/31/24 09:03 LRN (Rec: 05/31/24 12:06 LRN [id number]) Functional Tests Apley's Scratch Test Action 1- Left medial border of opp scap (in middle of scap) Action 1- Right medial border of opp scap (1/[address] way down scap) Action 2- Left T3 Action 2- Right T3 Action 3- Left T6 Action 3- Right T7 PT-OP-F Manual Assessment Start: 05/19/24 19:31 Freq: Status: Active Protocol: Document 05/31/24 09:03 LRN (Rec: 05/31/24 12:06 LRN [id number]) Manual Assessments Soft Tissue Assessment Soft Tissue Mobility Assessment Atrophy of R UT and upper Rhomboids, R brachium (triceps ) PT-OP-H Neuro Start: 05/19/24 19:31 Freq: Status: Active Protocol: Document 06/02/24 07:32 LRN (Rec: 06/02/24 08:18 LRN [id number]) Deep Tendon Reflex & Clonus Assessment Deep Tendon Reflex Right Bicep Deep Tendon Reflex 3+ Normal But Brisk Left Bicep Deep Tendon Reflex 2+ Normal Bilateral Brachioradialis Deep Tendon Reflex 1+ Diminished Bilateral Tricep Deep Tendon Reflex 0 Absent PT-OP-J Posture/Palpation/Skin Start: 05/19/24 19:31 Freq: Status: Active Protocol: Document 05/31/24 09:03 LRN (Rec: 05/31/24 12:06 LRN [id number]) Posture Evaluation Position Standing Head/C-Spine Posture Forward Head L-Spine Posture Shifted Left Shoulder Posture (R) Forward,(R) Elevated Scapula Posture (R) Elevated Comments Posture Comments Head shifted left, decreased Cervical spine curvature, mild increased dowagers hump. PT-OP-K Range of Motion Start: 05/19/24 19:31 Freq: Status: Active Protocol: Document 05/31/24 09:03 LRN (Rec: 05/31/24 12:06 LRN [id number]) Cervical Spine Range of Motion Cervical Spine Passive Percentage Testing Position Supine Rotation Left 100 Rotation Right 100 Lateral Flexion Left 90 Lateral Flexion Right 100 ROM Limitations Soft Tissue Tightness Shoulder Goniometric Range of Motion Shoulder Right Active Shoulder ROM WFL No Testing Position Sitting Flexion 140 Abduction 180 External Rotation at 0 degrees Abduction 90 Left Active Testing Position Sitting Flexion 150 Abduction 180 External Rotation at 90 degrees 90 Abduction PT-OP-L Special Tests Start: 05/19/24 19:31 Freq: Status: Active Protocol: Document 05/31/24 09:03 LRN (Rec: 05/31/24 12:06 LRN [id number]) Special Tests Shoulder Special Tests IR/Horizontal ADD Impingement Test Results - R Elevation Impingement Test Results - R Belly Press Test Results - torey PT-OP-M Strength Start: 05/19/24 19:31 Freq: Status: Active Protocol: Document 06/02/24 07:32 LRN (Rec: 06/02/24 08:18 LRN [id number]) Hand Aircraft Dispatcher/Pinch Strength Hand Dominance Hand Dominance Right Hand Strength Right Comments Aircraft Dispatcher strength (kg): 36, 30, 29 (avg 31). Norm for ages 60-65: 40.7 Left Comments Aircraft Dispatcher strength (kg): 32, 28, 25 (avg 28). Norm for ages 60-65: 34.8 PT-OP-Q Treatments Start: 05/19/24 19:31 Freq: Status: Active Protocol: Document 06/02/24 07:32 LRN (Rec: 06/02/24 08:18 LRN [id number]) Therapeutic Exercises Supine Exercises Ilipsoas stretch Supine Exercise Name Brandon Test position w/hip @ edge & leg off side of plinth Side bilateral Reps/Minutes 60 SH x 1 each Comments Much extra time needed to position for stretch TA tightening Supine Exercise Name On noodle, TA tightening Equipment Used red noodle Reps/Minutes 3 breath hold x 10 Comments Cued to breath because pt holds breath with >< Noodle arms overhead Equipment Used red noodle Reps/Minutes 1' x 2 with 1' rest btn stretches Comments cued to breath with stretch Thoracic ext on noodle Supine Exercise Name Hold stretch f/b active scap squeezes. Equipment Used red noodle Reps/Minutes 2' steady stretch hold & 5 SH x 15 Thoracic ext on 1/2 roll Supine Exercise Name Different positioning on 1/2 roll to find best comfort Equipment Used 1/2 roll Reps/Minutes 3' Comments Extra time needed to determine андрей to stretch, not comfortable for pt Sitting Exercises Gripping Side bilateral Equipment Used Dynomometer Reps/Minutes 3x each hand Comments Aircraft Dispatcher strength and average taken. Standing Exercises Wall standing Standing Exercise Name Posture correction Reps/Minutes 7' Comments Cued to bring hips to wll, head to ceiling and tuck chin to retract head. 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 Other Education Issued & reviewed handouts: proper sitting and standing posture and ergonomics for istting posture. Issued & reviewed HEP: Iliopsoas stretch, TA tightening & Thoracic ext ex's on towel roll/noodle (arms overhead and at 45 deg's AB stretch, and scap pinches). PT-OP-T Assessment and Plan Start: 05/19/24 19:31 Freq: Status: Active Protocol: Document 06/02/24 07:32 LRN (Rec: 06/02/24 08:18 LRN [id number]) Physical Therapy Assessment Goals Three Impairment Decreased R hand/index finger sensation (numbness) Short Term Goal (STG) Pt will be educated in proper sit/stand posture (wall and away from wall) and will be able to demonstrate ability to correct for good sitting/ standing posture of head on shoulders. 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 STG Duration 06/21/24 progressed 06/02/24 Shelter Goal (LTG) Normalization R hand/index finger sensation. LTG Duration 07/21/24 Two Impairment Decreased R triceps strength and UE function Short Term Goal (STG) Improve R triceps strength to 4/5, with ability to easily push with his arms with sit<> stand transfer and be able to use squeegy for the shower w/o increased tightness of R arm with use. STG Duration 06/21/24 Cemetery Keeper Goal (LTG) Improve R triceps strength to 5/[address] w/o the R arm tightening and reach a pitcher on a low shelf (in fridge) and pour water using his R arm w/o shoulder pain or stiffness in the R arm. LTG Duration 07/21/24 One Impairment Pt lacks appropriate self care HEP. Short Term Goal (STG) Pt will be educated and able to position head/neck/UE for proper night time sleeping posturing to prevent onset of UE pain flair up. STG Duration 06/21/24 Cemetery Keeper Goal (LTG) Pt will be independent on a HEP of posture ex's for the neck/shoulder/thoracic/lumbar spine to prevent shoulder/UE pain flair up (deep cervical neck maria fernanda & thoracic/lumbar ext). 06/02/24: HEP: Iliopsoas stretch, TA tightening & Thoracic ext ex's on towel roll/noodle (arms overhead and at 45 deg's AB stretch, and scap pinches). LTG Duration 07/21/24 progressed 06/02/24 Assessment Summary Assessment 59 yo male with diminishing symptoms of cervical radiculopathy (C7/T1) that started 04/28/24, now diagnosed with polymyalgia rheumatica. Today, pt's hand sesnation remains the same and he does show director of national sales strength mild weakness but compared to norms is weak. He showed good understanding of ex's issued and was able to lie flat on his back with less discomfort in T/S region after thoracic ext ex's. Pt tends to forget proper posturing in sitting, but does very good when cued. Physical Therapy Plan Frequency and Duration Frequency of Treatment 2x/Week Duration of treatment (weeks) 7 Plan of Care Start Date 05/31/24 Plan of Care End Date 07/21/24 Next Visit Focus/Plan Next Note Type Treatment Note Next Visit Plan Next: Check for radial/median n sensation changes. Review sitting posture and educate in proper sit/stand posture against and away from wall. Start proper posture with hip hinging for working at computer. POC: Therapeutic Ex (triceps strengthening, C. maria fernanda & scapular/shdr stabilizers, postural strengthening, ROM: shoulder (flex, IR), cervical SB, thoracic & lumbar ext, when appropriate UE neural glides), Therapeutic Activity (hip hinging w/proper head/ neck positioning training - use dowel stick and wall), manual therapy (C tx), Pt Education (HEP, pain mgmt, nighttime positioning) modalities MH to improve numbness.
--- NOTE | 2024-06-06 12:23 | PT.OTN ---
Current Diagnoses Pain in right shoulder (06/06/24) Radiculopathy, cervical region (06/06/24) Muscle weakness (generalized) (06/06/24) Physical Therapy Treatment Note PT-OP-A Visit Information Start: 05/19/24 19:31 Freq: Status: Active Protocol: Document 06/06/24 09:04 LRN (Rec: 06/06/24 09:52 LRN Laptop) Out-Patient Physical Therapy Visit Information Visit Information Visit Type Treatment Note Visit Start Time 09:04 Visit Stop Time 09:49 Visit Number 04/16 (25 max PT/OT/ST) Evaluation Information Evaluation Date 05/31/24 Precautions Precautions R KEERTHI 11/2019, HTN 2011, Osteoporosis of hips, not forearms. PT-OP-B Current Condition Start: 05/19/24 19:31 Freq: Status: Active Protocol: Document 05/31/24 09:03 LRN (Rec: 05/31/24 12:06 LRN [id number]) Current Condition History of Current Condition Onset Date 04/28/24 Current Complaints Soreness in R brachium and R index finger, numb in dorsal hand. History of Current Condition Pt states his problems started with L shoulder pain onset a few weeks prior to onset of R shoulder pain. His L shoulder pain was severe, but he states in ER he was given many medications that cleared his L shoulder pain, then his asphalt roller operator gave him hydrocodone for the R shoulder pain. Pt believes his R shoulder pain started because he got a new car and did not adjust the seat to optimal condition and he was doing a lot of work on a computer. He had R posterior shoulder pain in the area of the R scapula, and now c/o only soreness in R triceps and lateral elbow and top of foream and numbness in index finger and back of hand (wrist to MCP jts). His handwriting is a little impaired due to numbness of the R index finger. He feels he has recovered such that he doesn't feel he needs PT for the R shoulder, but would like to know what to do to prevent flair up and what to do if he has a flair up. He is agreeable to having PT to reduce the stiffness of his R arm and improve his arm strength. Currently he is taking Prednisone that he will start to taper off over a 3 wk period. States a week ago he couldn't floss teeth, and had difficulty showering. Prior Treatments and Tests 04/28/24 Cervical x-ray: multilevel degenerative changes most prominent at C4- C5. Developmental History Developmental History A few weeks prior to onset of R shoulder pain he had severe L shoulder pain that took him to the seek care in the ER. He states the ER radiologist imaging showed cervical radiculopathy. His primary doctor a week later dx'd him with polymyalgia rheumatica. He will have been on 30 days of steroids (prednisone) after the next 5 days. Treatment Goals Patient/Caregiver Goals Pt goals: - normalization of hand sensation. - learn what to do to prevent flair up. - learn what to do if he has a flair up. - improve abilities of: Driving R arm tightens up), Not able to squeegy the shower due to increased tightness of R arm with use (now letting it air dry), and reaching low shelf in frig for water pitcher and pouring water with non-dominant L arm because of shoulder pain/stiffness in the arm. 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 Osteoporosis. R KEERTHI 11/2019 PT-OP-C Subjective Start: 05/19/24 19:31 Freq: Status: Active Protocol: Document 06/06/24 09:04 LRN (Rec: 06/06/24 09:52 LRN Laptop) OP-PT Subjective Patient Comments Patient Comments Numbness in R hand is the same . PT-OP-E Functional Tests Start: 05/19/24 19:31 Freq: Status: Active Protocol: Document 05/31/24 09:03 LRN (Rec: 05/31/24 12:06 LRN [id number]) Functional Tests Apley's Scratch Test Action 1- Left medial border of opp scap (in middle of scap) Action 1- Right medial border of opp scap (1/[address] way down scap) Action 2- Left T3 Action 2- Right T3 Action 3- Left T6 Action 3- Right T7 PT-OP-F Manual Assessment Start: 05/19/24 19:31 Freq: Status: Active Protocol: Document 05/31/24 09:03 LRN (Rec: 05/31/24 12:06 LRN [id number]) Manual Assessments Soft Tissue Assessment Soft Tissue Mobility Assessment Atrophy of R UT and upper Rhomboids, R brachium (triceps ) PT-OP-H Neuro Start: 05/19/24 19:31 Freq: Status: Active Protocol: Document 06/02/24 07:32 LRN (Rec: 06/02/24 08:18 LRN [id number]) Deep Tendon Reflex & Clonus Assessment Deep Tendon Reflex Right Bicep Deep Tendon Reflex 3+ Normal But Brisk Left Bicep Deep Tendon Reflex 2+ Normal Bilateral Brachioradialis Deep Tendon Reflex 1+ Diminished Bilateral Tricep Deep Tendon Reflex 0 Absent PT-OP-J Posture/Palpation/Skin Start: 05/19/24 19:31 Freq: Status: Active Protocol: Document 05/31/24 09:03 LRN (Rec: 05/31/24 12:06 LRN [id number]) Posture Evaluation Position Standing Head/C-Spine Posture Forward Head L-Spine Posture Shifted Left Shoulder Posture (R) Forward,(R) Elevated Scapula Posture (R) Elevated Comments Posture Comments Head shifted left, decreased Cervical spine curvature, mild increased dowagers hump. PT-OP-K Range of Motion Start: 05/19/24 19:31 Freq: Status: Active Protocol: Document 05/31/24 09:03 LRN (Rec: 05/31/24 12:06 LRN [id number]) Cervical Spine Range of Motion Cervical Spine Passive Percentage Testing Position Supine Rotation Left 100 Rotation Right 100 Lateral Flexion Left 90 Lateral Flexion Right 100 ROM Limitations Soft Tissue Tightness Shoulder Goniometric Range of Motion Shoulder Right Active Shoulder ROM WFL No Testing Position Sitting Flexion 140 Abduction 180 External Rotation at 0 degrees Abduction 90 Left Active Testing Position Sitting Flexion 150 Abduction 180 External Rotation at 90 degrees 90 Abduction PT-OP-L Special Tests Start: 05/19/24 19:31 Freq: Status: Active Protocol: Document 05/31/24 09:03 LRN (Rec: 05/31/24 12:06 LRN [id number]) Special Tests Shoulder Special Tests IR/Horizontal ADD Impingement Test Results - R Elevation Impingement Test Results - R Belly Press Test Results - torey PT-OP-M Strength Start: 05/19/24 19:31 Freq: Status: Active Protocol: Document 06/02/24 07:32 LRN (Rec: 06/02/24 08:18 LRN [id number]) Hand Corporate Legal Assistant/Pinch Strength Hand Dominance Hand Dominance Right Hand Strength Right Comments Corporate Legal Assistant strength (kg): 36, 30, 29 (avg 31). Norm for ages 60-65: 40.7 Left Comments Corporate Legal Assistant strength (kg): 32, 28, 25 (avg 28). Norm for ages 60-65: 34.8 PT-OP-Q Treatments Start: 05/19/24 19:31 Freq: Status: Active Protocol: Document 06/06/24 09:04 LRN (Rec: 06/06/24 09:52 LRN Laptop) Therapeutic Exercises Supine Exercises TA tightening Supine Exercise Name On noodle, TA tightening Equipment Used red noodle Reps/Minutes 3 breath hold x 10 Comments Cued to breath because pt holds breath with >< Noodle arms overhead Equipment Used red noodle Reps/Minutes 1' x 2 with 1' rest btn stretches Comments cued to breath with stretch Thoracic ext on noodle Supine Exercise Name Positioning on noodle for stretch to pec/bstretch f/b active scap squeezes. Equipment Used red noodle Reps/Minutes 4' steady stretch hold & 5 SH x 15 Thoracic ext on 1/ roll Equipment Used red noodle Reps/Minutes 4 Comments Extra time needed to get a stretch, comfortable w/pillow Sitting Exercises Trunk L SB Sitting Exercise Name L SB to stretch R trunk Reps/Minutes 5 SH x 10 Comments Phys & v cuing needed Manual Therapy Treatment Consent Patient gave verbal consent for manual Yes treatment Soft Tissue Mobilization Shoulder Body Location R pec Stretch parallel to fibers Intensity/Depth Moderate Body Position Supine UT/Rhomboid Body Location R C/S paraspinals, mostly around C6-T1 Mobilization Type Sustained Pressure Intensity/Depth Mod Body Position Supine L back Body Location Lower & Lumbar Paraspinals Mobilization Type Strumming,Sustained Pressure Intensity/Depth min>mod Body Position Prone Comments Low tolerance tolerance to moderate pressure Manual Traction Cervical Details Axial and briefly C6-C7 ( interrupted due to foot cramp) Body Position Supine Reps/Duration 3' Comments Pt developed R foot cramp and treatment stopped. Self-Care/Home Management Treatment Activities Self-Care/Home Management Activities Issued & reviewed HEP: Sitting & standing trunk L SB. PT-OP-T Assessment and Plan Start: 05/19/24 19:31 Freq: Status: Active Protocol: Document 06/06/24 09:04 LRN (Rec: 06/06/24 09:52 LRN Laptop) Physical Therapy Assessment Goals Three Impairment Decreased R hand/index finger sensation (numbness) Short Term Goal (STG) Pt will be educated in proper sit/stand posture (wall and away from wall) and will be able to demonstrate ability to correct for good sitting/ standing posture of head on shoulders. 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 STG Duration 06/21/24 progressed 06/02/24 Detention Goal (LTG) Normalization R hand/index finger sensation. LTG Duration 07/21/24 Two Impairment Decreased R triceps strength and UE function Short Term Goal (STG) Improve R triceps strength to 4/5, with ability to easily push with his arms with sit<> stand transfer and be able to use squeegy for the shower w/o increased tightness of R arm with use. STG Duration 06/21/24 Detention Goal (LTG) Improve R triceps strength to 5/[address] w/o the R arm tightening and reach a pitcher on a low shelf (in fridge) and pour water using his R arm w/o shoulder pain or stiffness in the R arm. LTG Duration 07/21/24 One Impairment Pt lacks appropriate self care HEP. Short Term Goal (STG) Pt will be educated and able to position head/neck/UE for proper night time sleeping posturing to prevent onset of UE pain flair up. STG Duration 06/21/24 Barrel Dedenting Machine Operator Goal (LTG) Pt will be independent on a HEP of posture ex's for the neck/shoulder/thoracic/lumbar spine to prevent shoulder/UE pain flair up (deep cervical neck maria frenanda & thoracic/lumbar ext). 06/02/24: HEP: Iliopsoas stretch, TA tightening & Thoracic ext ex's on towel roll/noodle (arms overhead and at 45 deg's AB stretch, and scap pinches). 06/06/24: HEP: Sitting & standing trunk L SB. LTG Duration 07/21/24 progressed 06/06/24 Assessment Summary Assessment 59 yo male with diminishing symptoms of cervical radiculopathy (C7/T1) that started 2/27/25, now diagnosed with polymyalgia rheumatica; his current symptoms are weakness/stiffness/soreness of R triceps (posterior brachium ), lateral elbow, and top of forearm; numbness in the R dorsal hand from wrist to MCP jts and index finger, and mildly decreased R shoulder mobility. Today, no change in hand sensation with manual axial C. tx, 1st rib mob, or Pec stretch; therefore median/ radail n. sensation changes, possibly not cervical related. His back shows C-curve with apex on L, pt notes because of R KEERTHI. Physical Therapy Plan Frequency and Duration Frequency of Treatment 2x/Week Duration of treatment (weeks) 7 Plan of Care Start Date 05/31/24 Plan of Care End Date 07/21/24 Next Visit Focus/Plan Next Note Type Treatment Note Next Visit Plan Next: Check for radial/median n sensation changes. Review sleep posture, & sitting posture, & educate in proper sit/stand posture against and away from wall (STG 3). Review proper posture with hip hinging for working at computer. Check for thoracic/ lumbar curvature sitting and start strengthening of scap stabilizers, R triceps and hand extensors (emphasis R index finger). POC: Therapeutic Ex (triceps strengthening, C. maria fernanda & scapular/shdr stabilizers, postural strengthening, ROM: shoulder (flex, IR), cervical SB, thoracic & lumbar ext, when appropriate UE neural glides), Therapeutic Activity (hip hinging w/proper head/ neck positioning training - use dowel stick and wall), manual therapy (C tx), Pt Education (HEP, pain mgmt, nighttime positioning) modalities MH to improve numbness.
--- NOTE | 2024-06-14 16:49 | PT.OTN ---
Current Diagnoses Pain in right shoulder (06/14/24) Radiculopathy, cervical region (06/14/24) Muscle weakness (generalized) (06/14/24) Physical Therapy Treatment Note PT-OP-A Visit Information Start: 05/19/24 19:31 Freq: Status: Active Protocol: Document 06/14/24 07:35 LRN (Rec: 06/14/24 08:18 LRN Laptop) Out-Patient Physical Therapy Visit Information Visit Information Visit Type Treatment Note Visit Start Time 07:35 Visit Stop Time 08:16 Visit Number 05/14 (25 max PT/OT/ST) Evaluation Information Evaluation Date 05/31/24 Precautions Precautions R KEERTHI 11/2019, HTN 2011, Osteoporosis of hips, not forearms.. PT-OP-B Current Condition Start: 05/19/24 19:31 Freq: Status: Active Protocol: Document 05/31/24 09:03 LRN (Rec: 05/31/24 12:06 LRN [id number]) Current Condition History of Current Condition Onset Date 04/28/24 Current Complaints Soreness in R brachium and R index finger, numb in dorsal hand. History of Current Condition Pt states his problems started with L shoulder pain onset a few weeks prior to onset of R shoulder pain. His L shoulder pain was severe, but he states in ER he was given many medications that cleared his L shoulder pain, then his filter washer gave him hydrocodone for the R shoulder pain. Pt believes his R shoulder pain started because he got a new car and did not adjust the seat to optimal condition and he was doing a lot of work on a computer. He had R posterior shoulder pain in the area of the R scapula, and now c/o only soreness in R triceps and lateral elbow and top of foream and numbness in index finger and back of hand (wrist to MCP jts). His handwriting is a little impaired due to numbness of the R index finger. He feels he has recovered such that he doesn't feel he needs PT for the R shoulder, but would like to know what to do to prevent flair up and what to do if he has a flair up. He is agreeable to having PT to reduce the stiffness of his R arm and improve his arm strength. Currently he is taking Prednisone that he will start to taper off over a 3 wk period. States a week ago he couldn't floss teeth, and had difficulty showering. Prior Treatments and Tests 04/28/24 Cervical x-ray: multilevel degenerative changes most prominent at C4- C5. Developmental History Developmental History A few weeks prior to onset of R shoulder pain he had severe L shoulder pain that took him to the seek care in the ER. He states the ER radiologist imaging showed cervical radiculopathy. His primary doctor a week later dx'd him with polymyalgia rheumatica. He will have been on 30 days of steroids (prednisone) after the next 5 days. Treatment Goals Patient/Caregiver Goals Pt goals: - normalization of hand sensation. - learn what to do to prevent flair up. - learn what to do if he has a flair up. - improve abilities of: Driving R arm tightens up), Not able to squeegy the shower due to increased tightness of R arm with use (now letting it air dry), and reaching low shelf in frig for water pitcher and pouring water with non-dominant L arm because of shoulder pain/stiffness in the arm. 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 Osteoporosis. R KEERTHI 11/2019 PT-OP-C Subjective Start: 05/19/24 19:31 Freq: Status: Active Protocol: Document 06/14/24 07:35 LRN (Rec: 06/14/24 08:18 LRN Laptop) OP-PT Subjective Patient Comments Patient Comments Cut back on prednisone 8 days ago and again yesterday (from 10>5) but had to keep at 10 in order to sleep. Patient Reported Progress Worse OP-PT Pain Assessment Pain Assessment Grid Paper Pain Assessment Grid Completed Yes Location R shoulder Pain Location Details R scapula, medial border (4/10 ), R forearm (1/10) Scale Used Numeric (0 - 10) PT-OP-E Functional Tests Start: 05/19/24 19:31 Freq: Status: Active Protocol: Document 05/31/24 09:03 LRN (Rec: 05/31/24 12:06 LRN [id number]) Functional Tests Apley's Scratch Test Action 1- Left medial border of opp scap (in middle of scap) Action 1- Right medial border of opp scap (1/3 way down scap) Action 2- Left T3 Action 2- Right T3 Action 3- Left T6 Action 3- Right T7 PT-OP-F Manual Assessment Start: 05/19/24 19:31 Freq: Status: Active Protocol: Document 05/31/24 09:03 LRN (Rec: 05/31/24 12:06 LRN [id number]) Manual Assessments Soft Tissue Assessment Soft Tissue Mobility Assessment Atrophy of R UT and upper Rhomboids, R brachium (triceps ) PT-OP-H Neuro Start: 05/19/24 19:31 Freq: Status: Active Protocol: Document 06/02/24 07:32 LRN (Rec: 06/02/24 08:18 LRN [id number]) Deep Tendon Reflex & Clonus Assessment Deep Tendon Reflex Right Bicep Deep Tendon Reflex 3+ Normal But Brisk Left Bicep Deep Tendon Reflex 2+ Normal Bilateral Brachioradialis Deep Tendon Reflex 1+ Diminished Bilateral Tricep Deep Tendon Reflex 0 Absent PT-OP-J Posture/Palpation/Skin Start: 05/19/24 19:31 Freq: Status: Active Protocol: Document 05/31/24 09:03 LRN (Rec: 05/31/24 12:06 LRN [id number]) Posture Evaluation Position Standing Head/C-Spine Posture Forward Head L-Spine Posture Shifted Left Shoulder Posture (R) Forward,(R) Elevated Scapula Posture (R) Elevated Comments Posture Comments Head shifted left, decreased Cervical spine curvature, mild increased dowagers hump. PT-OP-K Range of Motion Start: 05/19/24 19:31 Freq: Status: Active Protocol: Document 05/31/24 09:03 LRN (Rec: 05/31/24 12:06 LRN [id number]) Cervical Spine Range of Motion Cervical Spine Passive Percentage Testing Position Supine Rotation Left 100 Rotation Right 100 Lateral Flexion Left 90 Lateral Flexion Right 100 ROM Limitations Soft Tissue Tightness Shoulder Goniometric Range of Motion Shoulder Right Active Shoulder ROM WFL No Testing Position Sitting Flexion 140 Abduction 180 External Rotation at 0 degrees Abduction 90 Left Active Testing Position Sitting Flexion 150 Abduction 180 External Rotation at 90 degrees 90 Abduction PT-OP-L Special Tests Start: 05/19/24 19:31 Freq: Status: Active Protocol: Document 05/31/24 09:03 LRN (Rec: 05/31/24 12:06 LRN [id number]) Special Tests Shoulder Special Tests IR/Horizontal ADD Impingement Test Results - R Elevation Impingement Test Results - R Belly Press Test Results - torey PT-OP-M Strength Start: 05/19/24 19:31 Freq: Status: Active Protocol: Document 06/02/24 07:32 LRN (Rec: 06/02/24 08:18 LRN [id number]) Hand Starter Mechanic/Pinch Strength Hand Dominance Hand Dominance Right Hand Strength Right Comments Starter Mechanic strength (kg): 36, 30, 29 (avg 31). Norm for ages 60-65: 40.7 Left Comments Starter Mechanic strength (kg): 32, 28, 25 (avg 28). Norm for ages 60-65: 34.8 PT-OP-Q Treatments Start: 05/19/24 19:31 Freq: Status: Active Protocol: Document 06/14/24 07:35 LRN (Rec: 06/14/24 08:18 LRN Laptop) Therapeutic Exercises Supine Exercises Ulnar n glides Supine Exercise Name head rotations R, L with arm starting at 90/90 then in neutral Side bilateral Reps/Minutes 10x head rot with each position Comments Extra time positioning arm, pn in R biceps after 2nd set ( head face away). Sidelying Exercises Neck elongation Sidelying Exercise Name After postural positioning out of and after sitting exer Reps/Minutes 5 SH x 10 Sitting Exercises Neck elongation Reps/Minutes 5 SH x 10 Comments next practiced sidelie neck elongation Therapeutic Activity Therapeutic Activity Posture training Name Postural training sitting, supine & sidelie for pnfr neutral head/shoulder Reps/Minutes 8' Comments Cued for head not in position and neck elongated. Manual Therapy Treatment Consent Patient gave verbal consent for manual Yes treatment Manual Traction Cervical Details Intermittent Manual axial and ~ C5-C7, alternating traction w/positioning Body Position Supine Reps/Duration 22' w/intermittent axial and C5-C7 traction Comments Alternating traction with positioning for supine positional tolerance. Self-Care/Home Management Treatment Activities Self-Care/Home Management Activities Issued and reviewed/discussed handouts for neck anatomy and sitting/sidelie posturing. PT-OP-T Assessment and Plan Start: 05/19/24 19:31 Freq: Status: Active Protocol: Document 06/14/24 07:35 LRN (Rec: 06/14/24 08:18 LRN Laptop) Physical Therapy Assessment Goals Three Impairment Decreased R hand/index finger sensation (numbness) Short Term Goal (STG) Pt will be educated in proper sit/stand posture (wall and away from wall) and will be able to demonstrate ability to correct for good sitting/ standing posture of head on shoulders. 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 STG Duration 06/21/24 progressed 06/02/24 Alf Goal (LTG) Normalization R hand/index finger sensation. LTG Duration 07/21/24 Two Impairment Decreased R triceps strength and UE function Short Term Goal (STG) Improve R triceps strength to 4/5, with ability to easily push with his arms with sit<> stand transfer and be able to use squeegy for the shower w/o increased tightness of R arm with use. STG Duration 06/21/24 Oyster Unloader Goal (LTG) Improve R triceps strength to 5/[address] w/o the R arm tightening and reach a pitcher on a low shelf (in fridge) and pour water using his R arm w/o shoulder pain or stiffness in the R arm. LTG Duration 07/21/24 One Impairment Pt lacks appropriate self care HEP. Short Term Goal (STG) Pt will be educated and able to position head/neck/UE for proper night time sleeping posturing to prevent onset of UE pain flair up. STG Duration 06/21/24 Oyster Unloader Goal (LTG) Pt will be independent on a HEP of posture ex's for the neck/shoulder/thoracic/lumbar spine to prevent shoulder/UE pain flair up (deep cervical neck maria fernanda & thoracic/lumbar ext). 06/02/24: HEP: Iliopsoas stretch, TA tightening & Thoracic ext ex's on towel roll/noodle (arms overhead and at 45 deg's AB stretch, and scap pinches). 06/06/24: HEP: Sitting & standing trunk L SB. LTG Duration 07/21/24 progressed 06/06/24 Assessment Summary Assessment 59 yo male with diminishing symptoms of cervical radiculopathy (C7/T1) that started 04/28/24, now diagnosed with polymyalgia rheumatica; his current symptoms are weakness/stiffness/soreness of R triceps (posterior brachium ), lateral elbow, and top of forearm; numbness in the R dorsal hand from wrist to MCP jts and index finger, and mildly decreased R shoulder mobility. Today, pt is having more pain due to reducing his prednisone medication. He exhibits poor poor head on neck posturing but responded well to manual C. Tx to relieve his pain in supine and reduction of pain in sidelie with good positioning posture. Pt to keep working on neck elongation and posture while PT gone on vacation and is to avoid poor posturing and lifting of heavy objects, and using heat for pain management . 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 Check for thoracic/ lumbar curvature sitting and start strengthening of scap stabilizers, R triceps and hand extensors (emphasis R index finger). POC: Therapeutic Ex (triceps strengthening, C. maria fernanda & scapular/shdr stabilizers, postural strengthening, ROM: shoulder (flex, IR), cervical SB, thoracic & lumbar ext, when appropriate UE neural glides), Therapeutic Activity (hip hinging w/proper head/ neck positioning training - use dowel stick and wall), manual therapy (C tx), Pt Education (HEP, pain mgmt, nighttime positioning) modalities MH to improve numbness.
--- NOTE | 2024-07-04 16:16 | PT.OTN ---
Current Diagnoses Pain in right shoulder (07/04/24) Radiculopathy, cervical region (07/04/24) Muscle weakness (generalized) (07/04/24) Physical Therapy Treatment Note PT-OP-A Visit Information Start: 05/19/24 19:31 Freq: Status: Active Protocol: Document 07/04/24 07:30 LRN (Rec: 07/04/24 08:19 LRN Laptop) Out-Patient Physical Therapy Visit Information Visit Information Visit Type Treatment Note Visit Start Time 07:30 Visit Stop Time 08:18 Visit Number 4/ (25 max PT/OT/ST) Evaluation Information Evaluation Date 05/31/24 Precautions Precautions R KEERTHI 11/2019, HTN 2011, Osteoporosis of hips, not forearms.. PT-OP-B Current Condition Start: 05/19/24 19:31 Freq: Status: Active Protocol: Document 05/31/24 09:03 LRN (Rec: 05/31/24 12:06 LRN [id number]) Current Condition History of Current Condition Onset Date 04/28/24 Current Complaints Soreness in R brachium and R index finger, numb in dorsal hand. History of Current Condition Pt states his problems started with L shoulder pain onset a few weeks prior to onset of R shoulder pain. His L shoulder pain was severe, but he states in ER he was given many medications that cleared his L shoulder pain, then his district manager primary care sales gave him hydrocodone for the R shoulder pain. Pt believes his R shoulder pain started because he got a new car and did not adjust the seat to optimal condition and he was doing a lot of work on a computer. He had R posterior shoulder pain in the area of the R scapula, and now c/o only soreness in R triceps and lateral elbow and top of foream and numbness in index finger and back of hand (wrist to MCP jts). His handwriting is a little impaired due to numbness of the R index finger. He feels he has recovered such that he doesn't feel he needs PT for the R shoulder, but would like to know what to do to prevent flair up and what to do if he has a flair up. He is agreeable to having PT to reduce the stiffness of his R arm and improve his arm strength. Currently he is taking Prednisone that he will start to taper off over a 3 wk period. States a week ago he couldn't floss teeth, and had difficulty showering. Prior Treatments and Tests 04/28/24 Cervical x-ray: multilevel degenerative changes most prominent at C4- C5. Developmental History Developmental History A few weeks prior to onset of R shoulder pain he had severe L shoulder pain that took him to the seek care in the ER. He states the ER radiologist imaging showed cervical radiculopathy. His primary doctor a week later dx'd him with polymyalgia rheumatica. He will have been on 30 days of steroids (prednisone) after the next 5 days. Treatment Goals Patient/Caregiver Goals Pt goals: - normalization of hand sensation. - learn what to do to prevent flair up. - learn what to do if he has a flair up. - improve abilities of: Driving R arm tightens up), Not able to squeegy the shower due to increased tightness of R arm with use (now letting it air dry), and reaching low shelf in frig for water pitcher and pouring water with non-dominant L arm because of shoulder pain/stiffness in the arm. 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 Osteoporosis. R KEERTHI 11/2019 PT-OP-C Subjective Start: 05/19/24 19:31 Freq: Status: Active Protocol: Document 07/04/24 07:30 LRN (Rec: 07/04/24 08:19 LRN Laptop) OP-PT Subjective Patient Comments Patient Comments States 2 wks ago had flare up R scapular and R forearm pain and had to increase prednisone . Now feeling pain is noticeable but no distressing. Pain in scapula is 0/10, forearm pain is 2/10. Had to drive to dentist (long drive ) and denstist chair dug into shoulder, will now find a local dentists. PT-OP-E Functional Tests Start: 05/19/24 19:31 Freq: Status: Active Protocol: Document 05/31/24 09:03 LRN (Rec: 05/31/24 12:06 LRN [id number]) Functional Tests Apley's Scratch Test Action 1- Left medial border of opp scap (in middle of scap) Action 1- Right medial border of opp scap (1/[address] down scap) Action 2- Left T3 Action 2- Right T3 Action 3- Left T6 Action 3- Right T7 PT-OP-F Manual Assessment Start: 05/19/24 19:31 Freq: Status: Active Protocol: Document 05/31/24 09:03 LRN (Rec: 05/31/24 12:06 LRN [id number]) Manual Assessments Soft Tissue Assessment Soft Tissue Mobility Assessment Atrophy of R UT and upper Rhomboids, R brachium (triceps ) PT-OP-H Neuro Start: 05/19/24 19:31 Freq: Status: Active Protocol: Document 06/02/24 07:32 LRN (Rec: 06/02/24 08:18 LRN [id number]) Deep Tendon Reflex & Clonus Assessment Deep Tendon Reflex Right Bicep Deep Tendon Reflex 3+ Normal But Brisk Left Bicep Deep Tendon Reflex 2+ Normal Bilateral Brachioradialis Deep Tendon Reflex 1+ Diminished Bilateral Tricep Deep Tendon Reflex 0 Absent PT-OP-J Posture/Palpation/Skin Start: 05/19/24 19:31 Freq: Status: Active Protocol: Document 05/31/24 09:03 LRN (Rec: 05/31/24 12:06 LRN [id number]) Posture Evaluation Position Standing Head/C-Spine Posture Forward Head L-Spine Posture Shifted Left Shoulder Posture (R) Forward,(R) Elevated Scapula Posture (R) Elevated Comments Posture Comments Head shifted left, decreased Cervical spine curvature, mild increased dowagers hump. PT-OP-K Range of Motion Start: 05/19/24 19:31 Freq: Status: Active Protocol: Document 07/04/24 07:30 LRN (Rec: 07/04/24 08:19 LRN Laptop) Cervical Spine Range of Motion Cervical Spine Passive Percentage Testing Position Sitting Rotation Left 75 Rotation Right 70 Lateral Flexion Left 100 Lateral Flexion Right 95 PT-OP-L Special Tests Start: 05/19/24 19:31 Freq: Status: Active Protocol: Document 05/31/24 09:03 LRN (Rec: 05/31/24 12:06 LRN [id number]) Special Tests Shoulder Special Tests IR/Horizontal ADD Impingement Test Results - R Elevation Impingement Test Results - R Belly Press Test Results - torey PT-OP-M Strength Start: 05/19/24 19:31 Freq: Status: Active Protocol: Document 06/02/24 07:32 LRN (Rec: 06/02/24 08:18 LRN [id number]) Hand Kitchen Porter/Pinch Strength Hand Dominance Hand Dominance Right Hand Strength Right Comments Kitchen Porter strength (kg): 36, 30, 29 (avg 31). Norm for ages 60-65: 40.7 Left Comments Kitchen Porter strength (kg): 32, 28, 25 (avg 28). Norm for ages 60-65: 34.8 PT-OP-Q Treatments Start: 05/19/24 19:31 Freq: Status: Active Protocol: Document 07/04/24 07:30 LRN (Rec: 07/04/24 08:19 LRN Laptop) Therapeutic Exercises Sitting Exercises C Renea ext Sitting Exercise Name manual resist and Lev 1 TB resist. Reps/Minutes 8' C. AROM Sitting Exercise Name Flex, Ext, SB, Rot Side bilateral Reps/Minutes 7' Comments ROM taken Neck elongation Reps/Minutes 5 SH x 10 Comments next practiced sidelie neck elongation Therapeutic Activity Therapeutic Activity Posture training Name Posture training standing. Reps/Minutes 3' Comments Wall to tragus (L side): 15 cm (5-7/8ths in). Manual Therapy Treatment Manual Traction Cervical Details Intermittent Manual axial and ~ C5-C7, and mechanical Body Position Supine Reps/Duration 10' w/intermittent axial Comments Alternating traction with positioning for supine positional tolerance. Manual Techniques TrP treatement Type PT trP & self TrP treatment with S-wand. Body Location TrP treatment R lateral border , mid scap Body Position Sitting Reps/Duration 12 Comments Poor tolerance to self treatment with S-wand. Self-Care/Home Management Treatment Activities Self-Care/Home Management Activities Issued Lev 1 TB for C. Renea strengthening PT-OP-T Assessment and Plan Start: 05/19/24 19:31 Freq: Status: Active Protocol: Document 07/04/24 07:30 LRN (Rec: 07/04/24 08:19 LRN Laptop) Physical Therapy Assessment Goals Three Impairment Decreased R hand/index finger sensation (numbness) Short Term Goal (STG) Pt will be educated in proper sit/stand posture (wall and away from wall) and will be able to demonstrate ability to correct for good sitting/ standing posture of head on shoulders. 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 STG Duration 06/21/24 progressed 06/02/24 Usp Goal (LTG) Normalization R hand/index finger sensation. 07/04/24: Index finger still a little numb. Better than it has been. LTG Duration 07/21/24 Two Impairment Decreased R triceps strength and UE function Short Term Goal (STG) Improve R triceps strength to 4/5, with ability to easily push with his arms with sit<> stand transfer and be able to use squeegy for the shower w/o increased tightness of R arm with use. STG Duration 06/21/24 Resin Maker Goal (LTG) Improve R triceps strength to 5/[address] w/o the R arm tightening and reach a pitcher on a low shelf (in fridge) and pour water using his R arm w/o shoulder pain or stiffness in the R arm. LTG Duration 07/21/24 One Impairment Pt lacks appropriate self care HEP. Short Term Goal (STG) Pt will be educated and able to position head/neck/UE for proper night time sleeping posturing to prevent onset of UE pain flair up. STG Duration 06/21/24 Usp Goal (LTG) Pt will be independent on a HEP of posture ex's for the neck/shoulder/thoracic/lumbar spine to prevent shoulder/UE pain flair up (deep cervical neck renea & thoracic/lumbar ext). 06/02/24: HEP: Iliopsoas stretch, TA tightening & Thoracic ext ex's on towel roll/noodle (arms overhead and at 45 deg's AB stretch, and scap pinches). 06/06/24: HEP: Sitting & standing trunk L SB. LTG Duration 07/21/24 progressed 06/06/24 Assessment Summary Assessment 59 yo male with flare up of cervical (C7/T1) radiculopathy after dental cleaning, pt diagnosed polymyalgia rheumatica; symptoms of weakness/stiffness/soreness of R triceps (posterior brachium ) and top of forearm ( initially numbness in the R dorsal hand from wrist to MCP jts and index finger, and mildly decreased R shoulder mobility ). Today, pt attends in flaired up state following visit to dentist. Today his primary complaint is R scapular and forearm pain. Relief of scapular pain with manual C. tx for as long as he could tolerate supine positioning; low tolerance to mechanical traction. R Scapular pain was along medial scapular border in various locations. Self trP treatment was not helpful. Pt posture awareness is improving. Weakness present in R cervical paraspinals. Physical Therapy Plan Frequency and Duration Frequency of Treatment 2x/Week Duration of treatment (weeks) 7 Plan of Care Start Date 05/31/24 Plan of Care End Date 07/21/24 Next Visit Focus/Plan Next Note Type Treatment Note Next Visit Plan Next: Assess progress towards goals. Review cervical ext exercise. Check for radial/ median n sensation changes and response to sleep positioning and assess compliance to proper sit (hip hinging for working at computer)/stand posturing and when standing against and away from wall ( STG 3). Check for thoracic/ lumbar curvature sitting and start strengthening of scap stabilizers, R triceps and hand extensors (emphasis R index finger). POC: Therapeutic Ex (triceps strengthening, C. renea & scapular/shdr stabilizers, postural strengthening, ROM: shoulder (flex, IR), cervical SB, thoracic & lumbar ext, when appropriate UE neural glides), Therapeutic Activity (hip hinging w/proper head/ neck positioning training - use dowel stick and wall), manual therapy (C tx), Pt Education (HEP, pain mgmt, nighttime positioning) modalities MH to improve numbness.
--- NOTE | 2024-07-06 10:09 | PT.OTN ---
Current Diagnoses Pain in right shoulder (07/06/24) Radiculopathy, cervical region (07/06/24) Muscle weakness (generalized) (07/06/24) Physical Therapy Treatment Note PT-OP-A Visit Information Start: 05/19/24 19:31 Freq: Status: Active Protocol: Document 07/06/24 07:19 AB (Rec: 07/06/24 10:03 AB Laptop) Out-Patient Physical Therapy Visit Information Visit Information Visit Type Treatment Note Visit Note Access Code [email or web address] Visit Start Time 07:32 Visit Stop Time 08:15 Visit Number 07/14 (25 max PT/OT/ST) Number of HEALTH AID Visits 1 Precautions Precautions R KEERTHI 11/2019, HTN 2011, Osteoporosis of hips, not forearms.. PT-OP-B Current Condition Start: 05/19/24 19:31 Freq: Status: Active Protocol: Document 05/31/24 09:03 LRN (Rec: 05/31/24 12:06 LRN [id number]) Current Condition History of Current Condition Onset Date 04/28/24 Current Complaints Soreness in R brachium and R index finger, numb in dorsal hand. History of Current Condition Pt states his problems started with L shoulder pain onset a few weeks prior to onset of R shoulder pain. His L shoulder pain was severe, but he states in ER he was given many medications that cleared his L shoulder pain, then his primary care coordinator gave him hydrocodone for the R shoulder pain. Pt believes his R shoulder pain started because he got a new car and did not adjust the seat to optimal condition and he was doing a lot of work on a computer. He had R posterior shoulder pain in the area of the R scapula, and now c/o only soreness in R triceps and lateral elbow and top of foream and numbness in index finger and back of hand (wrist to MCP jts). His handwriting is a little impaired due to numbness of the R index finger. He feels he has recovered such that he doesn't feel he needs PT for the R shoulder, but would like to know what to do to prevent flair up and what to do if he has a flair up. He is agreeable to having PT to reduce the stiffness of his R arm and improve his arm strength. Currently he is taking Prednisone that he will start to taper off over a 3 wk period. States a week ago he couldn't floss teeth, and had difficulty showering. Prior Treatments and Tests 04/28/24 Cervical x-ray: multilevel degenerative changes most prominent at C4- C5. Developmental History Developmental History A few weeks prior to onset of R shoulder pain he had severe L shoulder pain that took him to the seek care in the ER. He states the ER radiologist imaging showed cervical radiculopathy. His primary doctor a week later dx'd him with polymyalgia rheumatica. He will have been on 30 days of steroids (prednisone) after the next 5 days. Treatment Goals Patient/Caregiver Goals Pt goals: - normalization of hand sensation. - learn what to do to prevent flair up. - learn what to do if he has a flair up. - improve abilities of: Driving R arm tightens up), Not able to squeegy the shower due to increased tightness of R arm with use (now letting it air dry), and reaching low shelf in frig for water pitcher and pouring water with non-dominant L arm because of shoulder pain/stiffness in the arm. 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 Osteoporosis. R KEERTHI 11/2019 PT-OP-C Subjective Start: 05/19/24 19:31 Freq: Status: Active Protocol: Document 07/06/24 07:19 AB (Rec: 07/06/24 10:03 AB Laptop) OP-PT Subjective Patient Comments Patient Comments Patient reports having less pain, but continues to have a small amount of numbness index finger all the time, back of hand intermittently. Patient request to avoid traction, comments it irritates. PT-OP-E Functional Tests Start: 05/19/24 19:31 Freq: Status: Active Protocol: Document 05/31/24 09:03 LRN (Rec: 05/31/24 12:06 LRN [id number]) Functional Tests Apley's Scratch Test Action 1- Left medial border of opp scap (in middle of scap) Action 1- Right medial border of opp scap (1/[address] way down scap) Action 2- Left T3 Action 2- Right T3 Action 3- Left T6 Action 3- Right T7 PT-OP-F Manual Assessment Start: 05/19/24 19:31 Freq: Status: Active Protocol: Document 05/31/24 09:03 LRN (Rec: 05/31/24 12:06 LRN [id number]) Manual Assessments Soft Tissue Assessment Soft Tissue Mobility Assessment Atrophy of R UT and upper Rhomboids, R brachium (triceps ) PT-OP-H Neuro Start: 05/19/24 19:31 Freq: Status: Active Protocol: Document 06/02/24 07:32 LRN (Rec: 06/02/24 08:18 LRN [id number]) Deep Tendon Reflex & Clonus Assessment Deep Tendon Reflex Right Bicep Deep Tendon Reflex 3+ Normal But Brisk Left Bicep Deep Tendon Reflex 2+ Normal Bilateral Brachioradialis Deep Tendon Reflex 1+ Diminished Bilateral Tricep Deep Tendon Reflex 0 Absent PT-OP-J Posture/Palpation/Skin Start: 05/19/24 19:31 Freq: Status: Active Protocol: Document 05/31/24 09:03 LRN (Rec: 05/31/24 12:06 LRN [id number]) Posture Evaluation Position Standing Head/C-Spine Posture Forward Head L-Spine Posture Shifted Left Shoulder Posture (R) Forward,(R) Elevated Scapula Posture (R) Elevated Comments Posture Comments Head shifted left, decreased Cervical spine curvature, mild increased dowagers hump. PT-OP-K Range of Motion Start: 05/19/24 19:31 Freq: Status: Active Protocol: Document 07/04/24 07:30 LRN (Rec: 07/04/24 08:19 LRN Laptop) Cervical Spine Range of Motion Cervical Spine Passive Percentage Testing Position Sitting Rotation Left 75 Rotation Right 70 Lateral Flexion Left 100 Lateral Flexion Right 95 PT-OP-L Special Tests Start: 05/19/24 19:31 Freq: Status: Active Protocol: Document 05/31/24 09:03 LRN (Rec: 05/31/24 12:06 LRN [id number]) Special Tests Shoulder Special Tests IR/Horizontal ADD Impingement Test Results - R Elevation Impingement Test Results - R Belly Press Test Results - torey PT-OP-M Strength Start: 05/19/24 19:31 Freq: Status: Active Protocol: Document 06/02/24 07:32 LRN (Rec: 06/02/24 08:18 LRN [id number]) Hand Parking Lot Attendant And Cashier/Pinch Strength Hand Dominance Hand Dominance Right Hand Strength Right Comments Parking Lot Attendant And Cashier strength (kg): 36, 30, 29 (avg 31). Norm for ages 60-65: 40.7 Left Comments Parking Lot Attendant And Cashier strength (kg): 32, 28, 25 (avg 28). Norm for ages 60-65: 34.8 PT-OP-Q Treatments Start: 05/19/24 19:31 Freq: Status: Active Protocol: Document 07/06/24 07:19 AB (Rec: 07/06/24 10:03 AB Laptop) Therapeutic Exercises Supine Exercises 1/2 foam roller pec stretc Supine Exercise Name nearly T position Reps/Minutes 2 min Comments verbal and tactile cues for UE positioning Sitting Exercises hand tendon glide Reps/Minutes X 2 R UE Comments verbal and visual cues wrist extension Side right Resistance 1lb Reps/Minutes X 10 Comments verbal and visual cues breathing from diaphragm with UE's on pillows Sitting Exercise Name Noted increased activation ant CS muscles with breathing start of session Reps/Minutes 2-3 min Comments verbal cues HEP C Renea ext Sitting Exercise Name manual resist and Lev 1 TB resist. Reps/Minutes 8' with active extension X 10 isometric reactive Comments UE's positioned at table height, monitored for pain. Standing Exercises triceps extension Standing Exercise Name AROM HEP Side right Resistance no weight Reps/Minutes X 10 Comments verbal and tactile cues sit to stand Standing Exercise Name with dowel Reps/Minutes X 10 post training Comments Pt ed mechanics of sit to stand Therapeutic Activity Therapeutic Activity seated positioning Name towel roll under ischial tuberosities Reps/Minutes 5 min Comments training with 1/2 foam roller to inc ant pelvic tilt and pillow for lumbar support Patient ed text neck with 2 lb weight on dowel and photos of text neck lbs of force on cervical spine Posture training Reps/Minutes 3 min Comments 1. on wall VC to correct 10 % and hold when stepping away from wall PT-OP-T Assessment and Plan Start: 05/19/24 19:31 Freq: Status: Active Protocol: Document 07/06/24 07:19 AB (Rec: 07/06/24 10:03 AB Laptop) Physical Therapy Assessment Goals Three Impairment Decreased R hand/index finger sensation (numbness) Short Term Goal (STG) Pt will be educated in proper sit/stand posture (wall and away from wall) and will be able to demonstrate ability to correct for good sitting/ standing posture of head on shoulders. 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 STG Duration 06/21/24 progressed 06/02/24 Tank Maker Wood Goal (LTG) Normalization R hand/index finger sensation. 07/04/24: Index finger still a little numb. Better than it has been. 07/06/2024 Patient reports index numbness is less, but constant, back of hand numbness intermittent. LTG Duration 07/21/24 Two Impairment Decreased R triceps strength and UE function Short Term Goal (STG) Improve R triceps strength to 4/5, with ability to easily push with his arms with sit<> stand transfer and be able to use squeegy for the shower w/o increased tightness of R arm with use. STG Duration 06/21/24 Tank Maker Wood Goal (LTG) Improve R triceps strength to 5/[address] w/o the R arm tightening and reach a pitcher on a low shelf (in fridge) and pour water using his R arm w/o shoulder pain or stiffness in the R arm. 07/06/2024 Patient reports he reconfigured the position of the water in the fridge so doesn't have to pour water with R UE. 4-/5 tricpes. LTG Duration 07/21/24 One Impairment Pt lacks appropriate self care HEP. Short Term Goal (STG) Pt will be educated and able to position head/neck/UE for proper night time sleeping posturing to prevent onset of UE pain flair up. STG Duration 06/21/24 Penitentiary Goal (LTG) Pt will be independent on a HEP of posture ex's for the neck/shoulder/thoracic/lumbar spine to prevent shoulder/UE pain flair up (deep cervical neck renea & thoracic/lumbar ext). 06/02/24: HEP: Iliopsoas stretch, TA tightening & Thoracic ext ex's on towel roll/noodle (arms overhead and at 45 deg's AB stretch, and scap pinches). 06/06/24: HEP: Sitting & standing trunk L SB. 07/06/2024 added seated breathing from diaphragm and standing triceps extension without weight to HEP this session. LTG Duration 07/21/24 progressed 06/06/24 Assessment Summary Assessment 59 yo male with flare up of cervical (C7/T1) radiculopathy after dental cleaning, pt diagnosed polymyalgia rheumatica; symptoms of weakness/stiffness/soreness of R triceps (posterior brachium ) and top of forearm ( initially numbness in the R dorsal hand from wrist to MCP jts and index finger, and mildly decreased R shoulder mobility ). Today patient into session with reports of sleeping better, less numbness index finger, but still constant. Good return demonstration for exercises. Physical Therapy Plan Frequency and Duration Frequency of Treatment 2x/Week Duration of treatment (weeks) 7 Plan of Care Start Date 05/31/24 Plan of Care End Date 07/21/24 Therapeutic Interventions Therapeutic Interventions Home Exercise Program,Joint Mobilizations,Manual Therapy, Neuromuscular Re-education, Self-Care/Home Management,Soft Tissue Mobilization,Taping, Therapeutic Activities, Therapeutic Exercises Modalities Cold Pack/Ice Massage,Electric Stimulation,Hot Packs Next Visit Focus/Plan Next Note Type Treatment Note Next Visit Plan Next: Assess progress towards goals. Check for radial/ median n sensation changes start strengthening of scap stabilizers, assess андрей to HEP R triceps and add wrist/hand extensors to hep (emphasis R index finger). POC: Therapeutic Ex (triceps strengthening, C. renea & scapular/shdr stabilizers, postural strengthening, ROM: shoulder (flex, IR), cervical SB, thoracic & lumbar ext, when appropriate UE neural glides), Therapeutic Activity (hip hinging w/proper head/ neck positioning training - use dowel stick and wall), manual therapy (C tx), Pt Education (HEP, pain mgmt, nighttime positioning) modalities MH to improve numbness.
--- NOTE | 2024-07-11 12:05 | PT.OTN ---
Current Diagnoses Pain in right shoulder (07/11/24) Radiculopathy, cervical region (07/11/24) Muscle weakness (generalized) (07/11/24) Physical Therapy Treatment Note PT-OP-A Visit Information Start: 05/19/24 19:31 Freq: Status: Active Protocol: Document 07/11/24 07:19 LRN (Rec: 07/11/24 08:20 LRN Laptop) Out-Patient Physical Therapy Visit Information Visit Information Visit Type Treatment Note Visit Start Time 07:33 Visit Stop Time 08:19 Visit Number 08/14 (25 max PT/OT/ST) Number of HASHER OPERATOR Visits 1 Evaluation Information Evaluation Date 05/31/24 Precautions Precautions R KEERTHI 11/2019, HTN 2011, Osteoporosis of hips, not forearms.. PT-OP-B Current Condition Start: 05/19/24 19:31 Freq: Status: Active Protocol: Document 05/31/24 09:03 LRN (Rec: 05/31/24 12:06 LRN [id number]) Current Condition History of Current Condition Onset Date 04/28/24 Current Complaints Soreness in R brachium and R index finger, numb in dorsal hand. History of Current Condition Pt states his problems started with L shoulder pain onset a few weeks prior to onset of R shoulder pain. His L shoulder pain was severe, but he states in ER he was given many medications that cleared his L shoulder pain, then his jewel staker gave him hydrocodone for the R shoulder pain. Pt believes his R shoulder pain started because he got a new car and did not adjust the seat to optimal condition and he was doing a lot of work on a computer. He had R posterior shoulder pain in the area of the R scapula, and now c/o only soreness in R triceps and lateral elbow and top of foream and numbness in index finger and back of hand (wrist to MCP jts). His handwriting is a little impaired due to numbness of the R index finger. He feels he has recovered such that he doesn't feel he needs PT for the R shoulder, but would like to know what to do to prevent flair up and what to do if he has a flair up. He is agreeable to having PT to reduce the stiffness of his R arm and improve his arm strength. Currently he is taking Prednisone that he will start to taper off over a 3 wk period. States a week ago he couldn't floss teeth, and had difficulty showering. Prior Treatments and Tests 04/28/24 Cervical x-ray: multilevel degenerative changes most prominent at C4- C5. Developmental History Developmental History A few weeks prior to onset of R shoulder pain he had severe L shoulder pain that took him to the seek care in the ER. He states the ER radiologist imaging showed cervical radiculopathy. His primary doctor a week later dx'd him with polymyalgia rheumatica. He will have been on 30 days of steroids (prednisone) after the next 5 days. Treatment Goals Patient/Caregiver Goals Pt goals: - normalization of hand sensation. - learn what to do to prevent flair up. - learn what to do if he has a flair up. - improve abilities of: Driving R arm tightens up), Not able to squeegy the shower due to increased tightness of R arm with use (now letting it air dry), and reaching low shelf in frig for water pitcher and pouring water with non-dominant L arm because of shoulder pain/stiffness in the arm. 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 Osteoporosis. R KEERTHI 11/2019 PT-OP-C Subjective Start: 05/19/24 19:31 Freq: Status: Active Protocol: Document 07/11/24 07:19 LRN (Rec: 07/11/24 08:20 LRN Laptop) OP-PT Subjective Patient Comments Patient Comments States this morning he is doing pretty good, pain is <1/ 10, for past 2 days. Has been on prednisone and advil ( 2-3x/day). States in evening he gets tightness in shoulder rated 1-2/10. R hand numbness (finger and dorsal side of hand - ulnar/radial) changes in proportion to the pain in the R scapula. PT-OP-E Functional Tests Start: 05/19/24 19:31 Freq: Status: Active Protocol: Document 05/31/24 09:03 LRN (Rec: 05/31/24 12:06 LRN [id number]) Functional Tests Apley's Scratch Test Action 1- Left medial border of opp scap (in middle of scap) Action 1- Right medial border of opp scap (1/[address] down scap) Action 2- Left T3 Action 2- Right T3 Action 3- Left T6 Action 3- Right T7 PT-OP-F Manual Assessment Start: 05/19/24 19:31 Freq: Status: Active Protocol: Document 05/31/24 09:03 LRN (Rec: 05/31/24 12:06 LRN [id number]) Manual Assessments Soft Tissue Assessment Soft Tissue Mobility Assessment Atrophy of R UT and upper Rhomboids, R brachium (triceps ) PT-OP-H Neuro Start: 05/19/24 19:31 Freq: Status: Active Protocol: Document 06/02/24 07:32 LRN (Rec: 06/02/24 08:18 LRN [id number]) Deep Tendon Reflex & Clonus Assessment Deep Tendon Reflex Right Bicep Deep Tendon Reflex 3+ Normal But Brisk Left Bicep Deep Tendon Reflex 2+ Normal Bilateral Brachioradialis Deep Tendon Reflex 1+ Diminished Bilateral Tricep Deep Tendon Reflex 0 Absent PT-OP-J Posture/Palpation/Skin Start: 05/19/24 19:31 Freq: Status: Active Protocol: Document 05/31/24 09:03 LRN (Rec: 05/31/24 12:06 LRN [id number]) Posture Evaluation Position Standing Head/C-Spine Posture Forward Head L-Spine Posture Shifted Left Shoulder Posture (R) Forward,(R) Elevated Scapula Posture (R) Elevated Comments Posture Comments Head shifted left, decreased Cervical spine curvature, mild increased dowagers hump. PT-OP-K Range of Motion Start: 05/19/24 19:31 Freq: Status: Active Protocol: Document 07/04/24 07:30 LRN (Rec: 07/04/24 08:19 LRN Laptop) Cervical Spine Range of Motion Cervical Spine Passive Percentage Testing Position Sitting Rotation Left 75 Rotation Right 70 Lateral Flexion Left 100 Lateral Flexion Right 95 PT-OP-L Special Tests Start: 05/19/24 19:31 Freq: Status: Active Protocol: Document 05/31/24 09:03 LRN (Rec: 05/31/24 12:06 LRN [id number]) Special Tests Shoulder Special Tests IR/Horizontal ADD Impingement Test Results - R Elevation Impingement Test Results - R Belly Press Test Results - torey PT-OP-M Strength Start: 05/19/24 19:31 Freq: Status: Active Protocol: Document 06/02/24 07:32 LRN (Rec: 06/02/24 08:18 LRN [id number]) Hand Collaborative Teacher/Pinch Strength Hand Dominance Hand Dominance Right Hand Strength Right Comments Collaborative Teacher strength (kg): 36, 30, 29 (avg 31). Norm for ages 60-65: 40.7 Left Comments Collaborative Teacher strength (kg): 32, 28, 25 (avg 28). Norm for ages 60-65: 34.8 PT-OP-Q Treatments Start: 05/19/24 19:31 Freq: Status: Active Protocol: Document 07/11/24 07:19 LRN (Rec: 07/11/24 08:20 LRN Laptop) Therapeutic Exercises Sitting Exercises Finger Ext Sitting Exercise Name Hand on plinth, ext of 3rd and 4th finger Side right Reps/Minutes 10x each Finger AB/AD Sitting Exercise Name AB with self manual resist, AD w/putty resist Side right Equipment Used Yellow PUtty Reps/Minutes Active resistance AB, renea resist AD hand tendon glide Sitting Exercise Name Flex, palmar police magistrate, table top, straight mvmts Reps/Minutes x10' Comments verbal and visual cues C Renea ext Sitting Exercise Name manual resist and Lev 1 TB resist. Reps/Minutes 7' X 10SH isometric reactive Comments UE's positioned at table height, monitored for pain. Trunk L SB Sitting Exercise Name Trunk SB stretch Side bilateral Reps/Minutes 5 SH x 10 Gripping Sitting Exercise Name Finger curls Side right Equipment Used Yellow Putty. Reps/Minutes 10 SH x 10 Self-Care/Home Management Treatment Activities Self-Care/Home Management Activities Issued & reviewed HEP: Strengthening: Finger AB/AD, R 3rd,4th digit extension, resisted finger flx w/putty; Tendon glides lumbricals ( table top), Intrinsics: PIP/ DIP finger flex/ext, fingers curled>puppet; & hand finger glides (flx - fingers> add knuckles> add straighten DIP > all ext). Issued Yellow putty for renea finger AD strengthening. PT-OP-T Assessment and Plan Start: 05/19/24 19:31 Freq: Status: Active Protocol: Document 07/11/24 07:19 LRN (Rec: 07/11/24 08:20 LRN Laptop) Physical Therapy Assessment Goals Three Impairment Decreased R hand/index finger sensation (numbness) Short Term Goal (STG) Pt will be educated in proper sit/stand posture (wall and away from wall) and will be able to demonstrate ability to correct for good sitting/ standing posture of head on shoulders. 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 STG Duration 06/21/24 progressed 06/02/24 Micro Lab Analyst Goal (LTG) Normalization R hand/index finger sensation. 07/04/24: Index finger still a little numb. Better than it has been. 07/06/2024 Patient reports index numbness is less, but constant, back of hand numbness intermittent. 07/11/24: Pt R hand numbness is 10% less but proportionate to R shoulder pain. Dec'd sensation in the entire index finger & back of hand. LTG Duration 07/21/24 mild progress Two Impairment Decreased R triceps strength and UE function Short Term Goal (STG) Improve R triceps strength to 4/5, with ability to easily push with his arms with sit<> stand transfer and be able to use squeegy for the shower w/o increased tightness of R arm with use. 07/11/24: 4+/5. Can use his R arm to push with sit>stand, but states it is very weak. Can squeegy his shower. STG Duration 06/21/24 progressed 07/11/24 [facility] Goal (LTG) Improve R triceps strength to 5/[address] w/o the R arm tightening and reach a pitcher on a low shelf (in fridge) and pour water using his R arm w/o shoulder pain or stiffness in the R arm. 07/06/2024 Patient reports he reconfigured the position of the water in the fridge so doesn't have to pour water with R UE. 4-/5 tricpes. LTG Duration 07/21/24 One Impairment Pt lacks appropriate self care HEP. Short Term Goal (STG) Pt will be educated and able to position head/neck/UE for proper night time sleeping posturing to prevent onset of UE pain flair up. STG Duration 06/21/24 [facility] Goal (LTG) Pt will be independent on a HEP of posture ex's for the neck/shoulder/thoracic/lumbar spine to prevent shoulder/UE pain flair up (deep cervical neck renea & thoracic/lumbar ext). 06/02/24: HEP: Iliopsoas stretch, TA tightening & Thoracic ext ex's on towel roll/noodle (arms overhead and at 45 deg's AB stretch, and scap pinches). 06/06/24: HEP: Sitting & standing trunk L SB. 07/06/2024 added seated breathing from diaphragm and standing triceps extension without weight to HEP this session. LTG Duration 07/21/24 progressed 06/06/24 Assessment Summary Assessment 59 yo male with diminishing symptoms of R shoulder/ scapular pain (posterior upper back) following flare up of cervical (C7/T1) radiculopathy after dental cleaning, (pt diagnosed polymyalgia rheumatica); symptoms of weakness/stiffness/soreness of R triceps (posterior brachium ) and top of forearm). Today, numbness persists in the R index finger and dorsal hand from wrist to MCP jts. With medication, his pain lessens as the day progresses, but numbness of the hand remains same. Sitting posture is much improved. Physical Therapy Plan Frequency and Duration Frequency of Treatment 2x/Week Duration of treatment (weeks) 7 Plan of Care Start Date 05/31/24 Plan of Care End Date 07/21/24 Therapeutic Interventions Therapeutic Interventions Home Exercise Program,Joint Mobilizations,Manual Therapy, Neuromuscular Re-education, Self-Care/Home Management,Soft Tissue Mobilization,Taping, Therapeutic Activities, Therapeutic Exercises Modalities Cold Pack/Ice Massage,Electric Stimulation,Hot Packs Next Visit Focus/Plan Next Note Type Progress Note Next Visit Plan Next: Assess for new POC, and progress towards goals. Check for radial/median n sensation changes start strengthening of scap stabilizers, assess андрей to HEP R triceps and add wrist/hand extensors to hep (emphasis R index finger). HASHER OPERATOR: Address Nighttime positioning and proper sit/ stand posture to reduce sensation changes in hand/R arm. POC: Therapeutic Ex (triceps strengthening, C. renea & scapular/shdr stabilizers, postural strengthening, ROM: shoulder (flex, IR), cervical SB, thoracic & lumbar ext, when appropriate UE neural glides), Therapeutic Activity (hip hinging w/proper head/ neck positioning training - use dowel stick and wall), manual therapy (?C tx), Pt Education (HEP, pain mgmt, nighttime positioning) modalities MH to improve numbness.
--- NOTE | 2024-07-13 10:47 | PT.OTN ---
Current Diagnoses Pain in right shoulder (07/13/24) Radiculopathy, cervical region (07/13/24) Muscle weakness (generalized) (07/13/24) Physical Therapy Treatment Note PT-OP-A Visit Information Start: 05/19/24 19:31 Freq: Status: Active Protocol: Document 07/13/24 07:23 AB (Rec: 07/13/24 08:41 AB Laptop) Out-Patient Physical Therapy Visit Information Visit Information Visit Type Treatment Note Visit Note Access Code [email or web address] Visit Start Time 07:31 Visit Stop Time 08:15 Visit Number 09/13 Number of MINE ENGINEERING SUPERINTENDENT Visits 1 Precautions Precautions R KEERTHI 11/2019, HTN 2011, Osteoporosis of hips, not forearms.. PT-OP-B Current Condition Start: 05/19/24 19:31 Freq: Status: Active Protocol: Document 05/31/24 09:03 LRN (Rec: 05/31/24 12:06 LRN [id number]) Current Condition History of Current Condition Onset Date 04/28/24 Current Complaints Soreness in R brachium and R index finger, numb in dorsal hand. History of Current Condition Pt states his problems started with L shoulder pain onset a few weeks prior to onset of R shoulder pain. His L shoulder pain was severe, but he states in ER he was given many medications that cleared his L shoulder pain, then his primary substance abuse counselor gave him hydrocodone for the R shoulder pain. Pt believes his R shoulder pain started because he got a new car and did not adjust the seat to optimal condition and he was doing a lot of work on a computer. He had R posterior shoulder pain in the area of the R scapula, and now c/o only soreness in R triceps and lateral elbow and top of foream and numbness in index finger and back of hand (wrist to MCP jts). His handwriting is a little impaired due to numbness of the R index finger. He feels he has recovered such that he doesn't feel he needs PT for the R shoulder, but would like to know what to do to prevent flair up and what to do if he has a flair up. He is agreeable to having PT to reduce the stiffness of his R arm and improve his arm strength. Currently he is taking Prednisone that he will start to taper off over a 3 wk period. States a week ago he couldn't floss teeth, and had difficulty showering. Prior Treatments and Tests 04/28/24 Cervical x-ray: multilevel degenerative changes most prominent at C4- C5. Developmental History Developmental History A few weeks prior to onset of R shoulder pain he had severe L shoulder pain that took him to the seek care in the ER. He states the ER radiologist imaging showed cervical radiculopathy. His primary doctor a week later dx'd him with polymyalgia rheumatica. He will have been on 30 days of steroids (prednisone) after the next 5 days. Treatment Goals Patient/Caregiver Goals Pt goals: - normalization of hand sensation. - learn what to do to prevent flair up. - learn what to do if he has a flair up. - improve abilities of: Driving R arm tightens up), Not able to squeegy the shower due to increased tightness of R arm with use (now letting it air dry), and reaching low shelf in frig for water pitcher and pouring water with non-dominant L arm because of shoulder pain/stiffness in the arm. 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 Osteoporosis. R KEERTHI 11/2019 PT-OP-C Subjective Start: 05/19/24 19:31 Freq: Status: Active Protocol: Document 07/13/24 07:23 AB (Rec: 07/13/24 08:41 AB Laptop) OP-PT Subjective Patient Comments Patient Comments Yair reports he is about the same as he was on Thursday. Rates shoulder pain less than 1/10, Numbness in fingers is about where it always is. PT-OP-E Functional Tests Start: 05/19/24 19:31 Freq: Status: Active Protocol: Document 05/31/24 09:03 LRN (Rec: 05/31/24 12:06 LRN [id number]) Functional Tests Apley's Scratch Test Action 1- Left medial border of opp scap (in middle of scap) Action 1- Right medial border of opp scap (1/[address] way down scap) Action 2- Left T3 Action 2- Right T3 Action 3- Left T6 Action 3- Right T7 PT-OP-F Manual Assessment Start: 05/19/24 19:31 Freq: Status: Active Protocol: Document 05/31/24 09:03 LRN (Rec: 05/31/24 12:06 LRN [id number]) Manual Assessments Soft Tissue Assessment Soft Tissue Mobility Assessment Atrophy of R UT and upper Rhomboids, R brachium (triceps ) PT-OP-H Neuro Start: 05/19/24 19:31 Freq: Status: Active Protocol: Document 06/02/24 07:32 LRN (Rec: 06/02/24 08:18 LRN [id number]) Deep Tendon Reflex & Clonus Assessment Deep Tendon Reflex Right Bicep Deep Tendon Reflex 3+ Normal But Brisk Left Bicep Deep Tendon Reflex 2+ Normal Bilateral Brachioradialis Deep Tendon Reflex 1+ Diminished Bilateral Tricep Deep Tendon Reflex 0 Absent PT-OP-J Posture/Palpation/Skin Start: 05/19/24 19:31 Freq: Status: Active Protocol: Document 05/31/24 09:03 LRN (Rec: 05/31/24 12:06 LRN [id number]) Posture Evaluation Position Standing Head/C-Spine Posture Forward Head L-Spine Posture Shifted Left Shoulder Posture (R) Forward,(R) Elevated Scapula Posture (R) Elevated Comments Posture Comments Head shifted left, decreased Cervical spine curvature, mild increased dowagers hump. PT-OP-K Range of Motion Start: 05/19/24 19:31 Freq: Status: Active Protocol: Document 07/04/24 07:30 LRN (Rec: 07/04/24 08:19 LRN [facility]) Cervical Spine Range of Motion Cervical Spine Passive Percentage Testing Position Sitting Rotation Left 75 Rotation Right 70 Lateral Flexion Left 100 Lateral Flexion Right 95 PT-OP-L Special Tests Start: 05/19/24 19:31 Freq: Status: Active Protocol: Document 05/31/24 09:03 LRN (Rec: 05/31/24 12:06 LRN [id number]) Special Tests Shoulder Special Tests IR/Horizontal ADD Impingement Test Results - R Elevation Impingement Test Results - R Belly Press Test Results - torey PT-OP-M Strength Start: 05/19/24 19:31 Freq: Status: Active Protocol: Document 06/02/24 07:32 LRN (Rec: 06/02/24 08:18 LRN [id number]) Hand Immersion Metalcleaner/Pinch Strength Hand Dominance Hand Dominance Right Hand Strength Right Comments Immersion Metalcleaner strength (kg): 36, 30, 29 (avg 31). Norm for ages 60-65: 40.7 Left Comments Immersion Metalcleaner strength (kg): 32, 28, 25 (avg 28). Norm for ages 60-65: 34.8 PT-OP-Q Treatments Start: 05/19/24 19:31 Freq: Status: Active Protocol: Document 07/13/24 07:23 AB (Rec: 07/13/24 08:41 AB Laptop) Therapeutic Exercises Supine Exercises shoulder flexion Supine Exercise Name AROM/gentle gravity assisted stretch Equipment Used HEP Reps/Minutes X 10 for 10 sec hold in hooklying Comments verbal cues serratus punch Supine Exercise Name HEP Reps/Minutes X 15 without weight X 15 with 1 lb Sidelying Exercises shoulder IR Sidelying Exercise Name HEP Side right Reps/Minutes X 10 Comments verbal and tactile cues Sitting Exercises UT stretch Sitting Exercise Name HEP Reps/Minutes 60 sec X 2 R side 40 X 1 R then 60 X 1 Comments verbal and visual cues wrist extension Sitting Exercise Name 1 lb to HEP Reps/Minutes X 10 without weight X 10 with weight Comments monitored for pain breathing from diaphragm with UE's on pillows Reps/Minutes 2 min Comments verbal cues HEP review Standing Exercises triceps extension Standing Exercise Name AR1 lb to HEP Side right Resistance no weight then 1 lb Reps/Minutes X 10 w/o weight theh x 10 with 1 lb Comments verbal and tactile cues sit to stand Standing Exercise Name with dowel Reps/Minutes X 5 post training Comments VC for back of head to dowel Wall standing Standing Exercise Name Posture correction Reps/Minutes X 1 Comments VC to improve posture 10% then hold position when stepping away from wall Therapeutic Activity Therapeutic Activity Self STM Name theracane Reps/Minutes 2 minutes PT-OP-T Assessment and Plan Start: 05/19/24 19:31 Freq: Status: Active Protocol: Document 07/13/24 07:23 AB (Rec: 07/13/24 08:41 AB Laptop) Physical Therapy Assessment Goals Three Impairment Decreased R hand/index finger sensation (numbness) Short Term Goal (STG) Pt will be educated in proper sit/stand posture (wall and away from wall) and will be able to demonstrate ability to correct for good sitting/ standing posture of head on shoulders. 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 07/13/2024 R triceps 4+/5 STG Duration 06/21/24 progressed 06/02/24 Malt Specifications Control Assistant Goal (LTG) Normalization R hand/index finger sensation. 07/04/24: Index finger still a little numb. Better than it has been. 07/06/2024 Patient reports index numbness is less, but constant, back of hand numbness intermittent. 07/11/24: Pt R hand numbness is 10% less but proportionate to R shoulder pain. Dec'd sensation in the entire index finger & back of hand. 07/13/2024 index finger is still numb, back of hand is feels normal. LTG Duration 07/21/24 mild progress Two Impairment Decreased R triceps strength and UE function Short Term Goal (STG) Improve R triceps strength to 4/5, with ability to easily push with his arms with sit<> stand transfer and be able to use squeegy for the shower w/o increased tightness of R arm with use. 07/11/24: 4+/5. Can use his R arm to push with sit>stand, but states it is very weak. Can squeegy his shower. 07/13/2024 Patient reports having no pain using R UE for sit to stand, but comments it feels weaker. STG Duration 06/21/24 progressed 07/11/24 Retirement Goal (LTG) Improve R triceps strength to 5/[address] w/o the R arm tightening and reach a pitcher on a low shelf (in fridge) and pour water using his R arm w/o shoulder pain or stiffness in the R arm. 07/06/2024 Patient reports he reconfigured the position of the water in the fridge so doesn't have to pour water with R UE. 4-/5 tricpes. 07/13/2024 Patient reports tightness entire R UE.with driving persists. LTG Duration 07/21/24 One Impairment Pt lacks appropriate self care HEP. Short Term Goal (STG) Pt will be educated and able to position head/neck/UE for proper night time sleeping posturing to prevent onset of UE pain flair up. 07/13/2024 Patient comments he is no longer in pain for the first part of the day now with changes to sleep position, not sure if waking up due to pain or bladder. STG Duration 06/21/24 Malt Specifications Control Assistant Goal (LTG) Pt will be independent on a HEP of posture ex's for the neck/shoulder/thoracic/lumbar spine to prevent shoulder/UE pain flair up (deep cervical neck maria fernanda & thoracic/lumbar ext). 06/02/24: HEP: Iliopsoas stretch, TA tightening & Thoracic ext ex's on towel roll/noodle (arms overhead and at 45 deg's AB stretch, and scap pinches). 06/06/24: HEP: Sitting & standing trunk L SB. 07/06/2024 added seated breathing from diaphragm and standing triceps extension without weight to HEP this session. 07/13/2024: Patient reports tricep extension exercise is painful, has focused on the last few exercise as the exercises have accumulated. LTG Duration 07/21/24 progressed 06/06/24 Assessment Summary Assessment Patient into session with dec compliance with HEP. Declines STM, but agreeable to self STM with theracane. Physical Therapy Plan Frequency and Duration Frequency of Treatment 2x/Week Duration of treatment (weeks) 7 Plan of Care Start Date 05/31/24 Plan of Care End Date 07/21/24 Next Visit Focus/Plan Next Note Type Progress Note Next Visit Plan Next: Assess for new POC, and progress towards goals. Check for radial/median n sensation changes progress strengthening of scap stabilizers, (emphasis R index finger). MINE ENGINEERING SUPERINTENDENT: Address Nighttime positioning and proper sit/ stand posture to reduce sensation changes in hand/R arm. POC: Therapeutic Ex (triceps strengthening, C. maria fernanda & scapular/shdr stabilizers, postural strengthening, ROM: thoracic & lumbar ext, when appropriate UE neural glides), Therapeutic Activity (hip hinging w/proper head/neck positioning training - use dowel stick and wall), manual therapy (?C tx), Pt Education (HEP, pain mgmt, nighttime positioning) modalities MH to improve numbness.
--- NOTE | 2024-07-18 16:58 | PT.OTN ---
Current Diagnoses Pain in right shoulder (07/18/24) Radiculopathy, cervical region (07/18/24) Muscle weakness (generalized) (07/18/24) Physical Therapy Treatment Note PT-OP-A Visit Information Start: 05/19/24 19:31 Freq: Status: Active Protocol: Document 07/18/24 10:00 LRN (Rec: 07/18/24 10:55 LRN Laptop) Out-Patient Physical Therapy Visit Information Visit Information Visit Type Treatment Note Visit Start Time 10:00 Visit Stop Time 10:50 Visit Number 10/14 Evaluation Information Evaluation Date 05/31/24 Precautions Precautions R KEERTHI 11/2019, HTN 2011, Osteoporosis of hips, not forearms.. PT-OP-B Current Condition Start: 05/19/24 19:31 Freq: Status: Active Protocol: Document 05/31/24 09:03 LRN (Rec: 05/31/24 12:06 LRN [id number]) Current Condition History of Current Condition Onset Date 04/28/24 Current Complaints Soreness in R brachium and R index finger, numb in dorsal hand. History of Current Condition Pt states his problems started with L shoulder pain onset a few weeks prior to onset of R shoulder pain. His L shoulder pain was severe, but he states in ER he was given many medications that cleared his L shoulder pain, then his commercial real estate agent gave him hydrocodone for the R shoulder pain. Pt believes his R shoulder pain started because he got a new car and did not adjust the seat to optimal condition and he was doing a lot of work on a computer. He had R posterior shoulder pain in the area of the R scapula, and now c/o only soreness in R triceps and lateral elbow and top of foream and numbness in index finger and back of hand (wrist to MCP jts). His handwriting is a little impaired due to numbness of the R index finger. He feels he has recovered such that he doesn't feel he needs PT for the R shoulder, but would like to know what to do to prevent flair up and what to do if he has a flair up. He is agreeable to having PT to reduce the stiffness of his R arm and improve his arm strength. Currently he is taking Prednisone that he will start to taper off over a 3 wk period. States a week ago he couldn't floss teeth, and had difficulty showering. Prior Treatments and Tests 04/28/24 Cervical x-ray: multilevel degenerative changes most prominent at C4- C5. Developmental History Developmental History A few weeks prior to onset of R shoulder pain he had severe L shoulder pain that took him to the seek care in the ER. He states the ER radiologist imaging showed cervical radiculopathy. His primary doctor a week later dx'd him with polymyalgia rheumatica. He will have been on 30 days of steroids (prednisone) after the next 5 days. Treatment Goals Patient/Caregiver Goals Pt goals: - normalization of hand sensation. - learn what to do to prevent flair up. - learn what to do if he has a flair up. - improve abilities of: Driving R arm tightens up), Not able to squeegy the shower due to increased tightness of R arm with use (now letting it air dry), and reaching low shelf in frig for water pitcher and pouring water with non-dominant L arm because of shoulder pain/stiffness in the arm. 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 Osteoporosis. R KEERTHI 11/2019 PT-OP-C Subjective Start: 05/19/24 19:31 Freq: Status: Active Protocol: Document 07/18/24 10:00 LRN (Rec: 07/18/24 10:55 LRN Laptop) OP-PT Subjective Patient Comments Patient Comments Migraine this morning. Dropped down to 5 mg of prednisone. The day of PT was in pain, as usual, but fine the next morning. Pain in R shoulder blade is 3/10, numbness in R index finger, back of hand is fine, R forearm is not in pain. Wants to stop therapy and see slip seat coverer. Post therapy R posterior shoulder pain is 3/ 10, R arm 1/10 forearm pain from exercise. Numbness in finger that is constant. PT-OP-E Functional Tests Start: 05/19/24 19:31 Freq: Status: Active Protocol: Document 05/31/24 09:03 LRN (Rec: 05/31/24 12:06 LRN [id number]) Functional Tests Apley's Scratch Test Action 1- Left medial border of opp scap (in middle of scap) Action 1- Right medial border of opp scap (1/[address] down scap) Action 2- Left T3 Action 2- Right T3 Action 3- Left T6 Action 3- Right T7 PT-OP-F Manual Assessment Start: 05/19/24 19:31 Freq: Status: Active Protocol: Document 05/31/24 09:03 LRN (Rec: 05/31/24 12:06 LRN [id number]) Manual Assessments Soft Tissue Assessment Soft Tissue Mobility Assessment Atrophy of R UT and upper Rhomboids, R brachium (triceps ) PT-OP-H Neuro Start: 05/19/24 19:31 Freq: Status: Active Protocol: Document 06/02/24 07:32 LRN (Rec: 06/02/24 08:18 LRN [id number]) Deep Tendon Reflex & Clonus Assessment Deep Tendon Reflex Right Bicep Deep Tendon Reflex 3+ Normal But Brisk Left Bicep Deep Tendon Reflex 2+ Normal Bilateral Brachioradialis Deep Tendon Reflex 1+ Diminished Bilateral Tricep Deep Tendon Reflex 0 Absent PT-OP-J Posture/Palpation/Skin Start: 05/19/24 19:31 Freq: Status: Active Protocol: Document 07/18/24 10:00 LRN (Rec: 07/18/24 10:55 LRN Laptop) Palpation Assessment Location Wall to Tragus Palpation Location measured wall to tragus. Palpation Details 15cm or 15 7/8 inch. Chin tuck: 14 cm, or 15 1/2 inch. (creates pain in forearm ). PT-OP-K Range of Motion Start: 05/19/24 19:31 Freq: Status: Active Protocol: Document 07/04/24 07:30 LRN (Rec: 07/04/24 08:19 LRN Laptop) Cervical Spine Range of Motion Cervical Spine Passive Percentage Testing Position Sitting Rotation Left 75 Rotation Right 70 Lateral Flexion Left 100 Lateral Flexion Right 95 PT-OP-L Special Tests Start: 05/19/24 19:31 Freq: Status: Active Protocol: Document 05/31/24 09:03 LRN (Rec: 05/31/24 12:06 LRN [id number]) Special Tests Shoulder Special Tests IR/Horizontal ADD Impingement Test Results - R Elevation Impingement Test Results - R Belly Press Test Results - torey PT-OP-M Strength Start: 05/19/24 19:31 Freq: Status: Active Protocol: Document 06/02/24 07:32 LRN (Rec: 06/02/24 08:18 LRN [id number]) Hand Cat Driver/Pinch Strength Hand Dominance Hand Dominance Right Hand Strength Right Comments Cat Driver strength (kg): 36, 30, 29 (avg 31). Norm for ages 60-65: 40.7 Left Comments Cat Driver strength (kg): 32, 28, 25 (avg 28). Norm for ages 60-65: 34.8 PT-OP-Q Treatments Start: 05/19/24 19:31 Freq: Status: Active Protocol: Document 07/18/24 10:00 LRN (Rec: 07/18/24 10:55 LRN Laptop) Therapeutic Exercises Supine Exercises shoulder flexion Supine Exercise Name AROM/gentle gravity assisted stretch Equipment Used HEP Reps/Minutes X 10 for 10 sec hold in hooklying Comments verbal cues serratus punch Supine Exercise Name HEP review Reps/Minutes X 15 without weight X 15 with 1 lb Sidelying Exercises shoulder IR Sidelying Exercise Name HEP review Side bilateral Reps/Minutes X 10 Comments verbal and tactile cues Sitting Exercises UT stretch Sitting Exercise Name HEP review Reps/Minutes 10 SH x 2 Comments Pt cued to move same amout both sides. wrist extension Sitting Exercise Name 1 lb to HEP reviewed Reps/Minutes X 10 without weight X 10 with weight Comments Cued to not lean over to do exer, but to rest forearm on support breathing from diaphragm with UE's on pillows Reps/Minutes 4 min Comments Cued to breath out for relaxation. Standing Exercises triceps extension Standing Exercise Name AR1 lb to HEP Side right Resistance no weight then 1 lb Reps/Minutes X 8 w/o weight theh x 8 with 1 lb Comments verbal and tactile cues Wall standing Standing Exercise Name Posture correction - wall to tragus measured Reps/Minutes X 2 Comments VC to improve posture 10% then hold position when stepping away from wall PT-OP-T Assessment and Plan Start: 05/19/24 19:31 Freq: Status: Active Protocol: Document 07/18/24 10:00 LRN (Rec: 07/18/24 10:55 LRN Laptop) Physical Therapy Assessment Goals Three Impairment Decreased R hand/index finger sensation (numbness) Short Term Goal (STG) Pt will be educated in proper sit/stand posture (wall and away from wall) and will be able to demonstrate ability to correct for good sitting/ standing posture of head on shoulders. 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 07/13/2024 R triceps 4+/5 07/18/24: When standing up for sitting the pt is aware of posture. STG Duration 06/21/24 (07/18/24: MET GOAL) Nursing Home Goal (LTG) Normalization R hand/index finger sensation. 07/04/24: Index finger still a little numb. Better than it has been. 07/06/2024 Patient reports index numbness is less, but constant, back of hand numbness intermittent. 07/11/24: Pt R hand numbness is 10% less but proportionate to R shoulder pain. Dec'd sensation in the entire index finger & back of hand. 07/13/2024 index finger is still numb, back of hand is feels normal. LTG Duration 07/21/24 (07/18/24: Partially met goal) Two Impairment Decreased R triceps strength and UE function Short Term Goal (STG) Improve R triceps strength to 4/5, with ability to easily push with his arms with sit<> stand transfer and be able to use squeegy for the shower w/o increased tightness of R arm with use. 07/11/24: 4+/5. Can use his R arm to push with sit>stand, but states it is very weak. Can squeegy his shower. 07/13/2024 Patient reports having no pain using R UE for sit to stand, but comments it feels weaker. 07/18/24: Triceps strength 5/ 5, Pain in triceps after several reps. Can use arms to push off from chair. STG Duration 06/21/24 (07/18/24: Partially met goal) Acid Dumper Goal (LTG) Improve R triceps strength to 5/[address] w/o the R arm tightening and reach a pitcher on a low shelf (in fridge) and pour water using his R arm w/o shoulder pain or stiffness in the R arm. 07/06/2024 Patient reports he reconfigured the position of the water in the fridge so doesn't have to pour water with R UE. 4-/5 tricpes. 07/13/2024 Patient reports tightness entire R UE.with driving persists. 07/18/24: R arm tightens with driving, avoids driving 2 days in a row or driving out of [place]. Pours water from pitcher still w/L hand. LTG Duration 07/21/24 Mild improvement One Impairment Pt lacks appropriate self care HEP. Short Term Goal (STG) Pt will be educated and able to position head/neck/UE for proper night time sleeping posturing to prevent onset of UE pain flair up. 07/13/2024 Patient comments he is no longer in pain for the first part of the day now with changes to sleep position, not sure if waking up due to pain or bladder. 07/18/24: Wakes before alarm, Sometimes wakes with UE pain. STG Duration 06/21/24 (07/18/24: Partially met goal) Nursing Home Goal (LTG) Pt will be independent on a HEP of posture ex's for the neck/shoulder/thoracic/lumbar spine to prevent shoulder/UE pain flair up (deep cervical neck maria fernanda & thoracic/lumbar ext). 06/02/24: HEP: Iliopsoas stretch, TA tightening & Thoracic ext ex's on towel roll/noodle (arms overhead and at 45 deg's AB stretch, and scap pinches). 06/06/24: HEP: Sitting & standing trunk L SB. 07/06/2024 added seated breathing from diaphragm and standing triceps extension without weight to HEP this session. 07/13/2024: Patient reports tricep extension exercise is painful, has focused on the last few exercise as the exercises have accumulated. LTG Duration 07/21/24 (07/18/24: MET GOAL for current status.) Assessment Summary Assessment 59 yo male being seen for diminishing symptoms of R shoulder/scapular pain ( posterior upper back) following flare up of cervical radiculopathy after dental cleaning with symptoms of weakness/stiffness/soreness of R triceps (posterior brachium ) and top of forearm. The pt was seen for 8 visits since . The pt made some progress but all goals were not met. He is slowly decreasing his prednisone use with ongoing symptoms of posterior shoulder pain and intermittent R forearm and numbness of R index finger. Symptoms and postural changes appear to be more C5, C6 related. The pt is choosing to be discharged from therapy and will continue with his HEP . He understands he will need a new referral to return if a flare up occurs and physical therapy is needed. Physical Therapy Plan Discharge Physical Therapy Discharge Reasons Patient Request Discharge Comments Pt showing signs of C5, C6 nerve root involvement (mostly C5). Pt choosing to discontinue therapy as he is having a visit with Law Tutor and is reducing use of prednisone. Thank you for your referral.
== END 2024-07-20 14:23 | disposition home or self-care (01) ==
LOC: PHYS 09:45
PROVIDERS: Family Provider Student in an Organized Health Care Education/Training Program; PCP Student in an Organized Health Care Education/Training Program; Referring Provider Student in an Organized Health Care Education/Training Program; Visit Provider Student in an Organized Health Care Education/Training Program
DX: M25.511 Pain in right shoulder (principal); M62.81 Muscle weakness (generalized); M54.12 Radiculopathy, cervical region
CPT/HCPCS: 97110; 97140; 97162; 97530; 97535

== ENCOUNTER → 2024-08-04 09:37 | Outpatient (CLI) | payer OTHER, SELFPAY ==
[2023-01-09 08:02] VITALS: BMI 21.7
--- NOTE | 2024-08-04 09:38 | DI.RAD.S_ITS ---
PROCEDURE: XR HIP W PEL IF DONE BILAT 2V H, four views total INDICATIONS: Bilateral hip pain with bruising TECHNIQUE: AP pelvis and lateral view of the hip acquired. Four views total COMPARISON: X-ray [facility] orthopedics 10/30/2020. Prior report is not available. FINDINGS: Vpsa-pu-dethksti degenerative changes of the left hip with joint space narrowing and osteophytes Kellgren Branden grade 2-3 mildly progressed. Postoperative changes status post right total hip arthroplasty without radiographic evidence of periprosthetic fracture or lucency. No dislocation. IMPRESSION: Right hip arthroplasty without radiographic evidence of complication. Degenerative changes left hip. If symptoms persist or worsen, or there is high clinical suspicion of pelvic/hip abnormality, MRI could be performed. Dictated by: Clay Campo M.D. on 08/04/2024 at 22:07 Approved by: Clay Campo M.D. on 08/04/2024 at 22:10
--- NOTE | 2024-08-04 09:38 | DI.RAD.S_ITS ---
PROCEDURE: XR CHEST 2V INDICATIONS: right rib pain TECHNIQUE: 2 views of the chest were acquired. COMPARISON: None. FINDINGS: Mild bibasilar subsegmental atelectasis right greater than left some of which may be related expiratory result. Mild bilateral perihilar and lower lobe peribronchial thickening, more than expected for expiratory result; bronchitis, viral infection, asthma or other process could be considered. Mild degenerative changes of the thoracic spine and shoulders. Cardiopericardial silhouette and pulmonary vasculature within normal limits. No pneumothorax, no pleural effusion, no lobar consolidation. IMPRESSION: Mild peribronchial thickening as discussed above. If symptoms persist or worsen, or there is high clinical suspicion of thoracic abnormality, CT chest could be performed. Dictated by: Clay Campo M.D. on 08/04/2024 at 22:05 Approved by: Clay Campo M.D. on 08/04/2024 at 22:06
== END ==
PROVIDERS: PCP Student in an Organized Health Care Education/Training Program; Referring Provider Student in an Organized Health Care Education/Training Program; Visit Provider Student in an Organized Health Care Education/Training Program
DX: R07.81 Pleurodynia (principal); M25.551 Pain in right hip; M25.552 Pain in left hip; S70.00XA Contusion of unspecified hip, initial encounter; Z96.641 Presence of right artificial hip joint
CPT/HCPCS: 71046; 73521

== ENCOUNTER → 2024-09-14 09:58 | Outpatient (CLI) | payer OTHER, SELFPAY ==
[2023-01-09 08:02] VITALS: BMI 21.7
--- NOTE | 2024-09-14 09:59 | DI.ECHO.S_ITS ---
[facility] : : [address] [facility] : : [place], : : [place] [address] : : Phone: [phone] Echocardiogram Report + + :Name: MARIA TERESA NORWOOD Study Date: 09/14/2024 Height: 72 in : [id number] ReadingLocation: Weight: 180 lb : : Gender: Male BSA: 2.0 m2 : :: 1965 Age: 59 yrs BP: 141/94 mmHg: :Reason For Study: ESSENTIAL HYPERTENSION : :Ordering Physician: ANSELMO, : :LINDY Performed By: Bacilio Davis : :Referring: LINDY BRIONES : + + Interpretation Summary The ejection fraction is estimated to be 55-60%. Diastolic parameters suggest probable normal left ventricular diastolic function and normal filling pressures. The right ventricle is mildly dilated. The right ventricular systolic function is normal. There is mild mitral regurgitation. There is mild aortic regurgitation. Pulmonary artery pressures cannot be estimated because of the lack of a measurable TR jet velocity but the IVC suggests a CVP of around 3 mmHg. Procedure: A two-dimensional transthoracic echocardiogram with color flow and Doppler was performed. The study quality was technically good. There is no prior echocardiogram noted for this patient. The patient was in normal sinus rhythm during the exam. Left Ventricle: The left ventricle is normal in size. There is normal left ventricular wall thickness. There is no ventricular septal defect visualized. The ejection fraction is estimated to be 55-60%. There are no focal wall motion abnormalities. Diastolic parameters suggest probable normal left ventricular diastolic function and normal filling pressures. Right Ventricle: The right ventricle is mildly dilated. The right ventricular systolic function is normal. Atria: The left atrial size is normal. Right atrial size is normal. There is no Doppler evidence for an interatrial shunt. Mitral Valve: The mitral valve leaflets appear normal. There is no evidence of stenosis, fluttering, or prolapse. There is mild mitral regurgitation. Aortic Valve: The aortic valve is trileaflet. The aortic valve opens well. There is no aortic valve stenosis. There is mild aortic regurgitation. Tricuspid Valve: The tricuspid valve leaflets are thin and pliable. There is trace tricuspid regurgitation. Pulmonary artery pressures cannot be estimated because of the lack of a measurable TR jet velocity but the IVC suggests a CVP of around 3 mmHg. Pulmonic Valve: The pulmonic valve leaflets appear thickened, but open well. There is mild pulmonic regurgitation. Great Vessels: The aortic root is mildly dilated. The dimensions of the ascending aorta are normal. The pulmonary artery is normal size. The IVC is of normal diameter and collapses greater than 50% with a sniff. This suggests a low right atrial pressure of 3 mm Hg. Pericardium/ Pleura There is no pericardial effusion. There is no pleural effusion. MMode/2D Measurements & Calculations LVIDd: 4.9 cm AoV Openin.2 cm LVIDs: 3.3 cm LVOT diam: 2.3 cm IVSd: 0.89 cm Ao root diam: 3.8 cm LVPWd: 0.85 cm asc Aorta Diam: 3.4 cm LV yeh. diameter/BSA (cm/m^2): 2.4 LV sys. diameter/BSA (cm/m^2): 1.6 FS: 33.6 % EPSS: 0.59 cm LA A2 area: 17.7 cm2 RA long axis: 4.7 cm LA A4 area: 16.3 cm2 RA area: 15.2 cm2 LA length (vol): 4.7 cm RA vol: 41.7 ml LA vol: 51.9 ml RA : 20.5 ml/m2 LA vol index: 25.5 ml/m2 RVD1 (basal): 4.1 cm IVC diam: 1.3 cm RVD2 (mid): 3.4 cm TAPSE: 2.3 cm Doppler Measurements & Calculations Ao V2 max: 117.2 cm/sec LVOT Max Jerel: 94.5 cm/sec Ao V2 mean: 80.4 cm/sec LV V1 max P.6 mmHg Ao V2 VTI: 27.2 cm LV V1 VTI: 20.4 cm Ao max P.5 mmHg Ao mean P.9 mmHg GEGE(I,D): 3.1 cm2 MV E max jerel: 73.5 cm/sec GEGE(V,D): 3.4 cm2 MV A max jerel: 70.8 cm/sec GEGE indexed to BSA (cm^2/m^2): 1.5 MV E/A: 1.0 sev ratio: 0.75 Med Peak E' Jerel: 6.9 cm/sec E/E' med: 10.6 Lat Peak E' Jerel: 8.3 cm/sec E/E' lat: 8.9 E/e' average: 9.8 MV dec time: 0.18 sec TR max jerel: 252.2 cm/sec TR max P.4 mmHg PA V2 max: 123.7 cm/sec SV(LVOT): 85.1 ml PA V2 mean: 84.4 cm/sec PA mean P.1 mmHg PA pr(Accel): 56.7 mmHg Reading Physician:12:53 PM
== END ==
PROVIDERS: PCP Student in an Organized Health Care Education/Training Program; Referring Provider Student in an Organized Health Care Education/Training Program; Visit Provider Student in an Organized Health Care Education/Training Program
DX: I08.0 Rheumatic disorders of both mitral and aortic valves (principal); I77.810 Thoracic aortic ectasia; I10 Essential (primary) hypertension
CPT/HCPCS: 93306

== ENCOUNTER → 2024-12-28 07:16 | Outpatient (CLI) | payer OTHER, SELFPAY ==
[2023-01-09 08:02] VITALS: BMI 21.7
[2024-12-28 07:56] LABS: Add Manual Diff / Slide Review NO; Hematocrit 43.5 % (41-53); Hemoglobin 14.9 g/dL (13.5-17.5); Lymphocytes Absolute Auto 2700 /uL (1100-4500); Mean Corpuscular HGB Conc 34.3 % (30-36); Mean Corpuscular Hemoglobin 29.8 PG (26-34); Mean Corpuscular Volume 86.9 fL (80-100); Platelet Count 279 X10^3/uL (150-400)
[2024-12-28 08:24] LABS: Microalbumi Creatinin Ratio Ur 10.0 ug/mg CR (<30)
[2024-12-28 08:26] LABS: Alanine Aminotransferase 50 IU/L (<50); Albumin 4.4 g/dL (3.5-5.0); Albumin Globulin Ratio 1.7 (1.0-2.8); Alkaline Phosphatase 56 U/L (38-126); Blood Urea Nitrogen 16 mg/dL (9-20); Calcium 9.4 mg/dL (8.4-10.2); Carbon Dioxide 28 mmol/L (22-32); Chloride 105 mmol/L (98-107); Cholesterol 115 mg/dL (140-199); Estimated Glomerular Filt Rate 60 mL/min (>60); Globulin 2.6 g/dL (1.7-4.1); Glucose 91 mg/dL (70-99); HDL Cholesterol 37 mg/dL (40-60); HEMOLYSIS < 15 (0-50); Potassium 4.4 mmol/L (3.4-5.1); Sodium 141 mmol/L (137-145); Total Protein 7.0 g/dL (6.3-8.2); Triglycerides 165 mg/dL (35-150)
[2024-12-28 08:49] LABS: Thyroid Stimulating Hormone 2.79 uIU/mL (0.47-4.68)
== END ==
PROVIDERS: PCP Student in an Organized Health Care Education/Training Program; Referring Provider Student in an Organized Health Care Education/Training Program; Visit Provider Student in an Organized Health Care Education/Training Program
DX: E78.2 Mixed hyperlipidemia (principal); Z12.5 Encounter for screening for malignant neoplasm of prostate; I10 Essential (primary) hypertension
CPT/HCPCS: 36415; 80053; 80061; 82043; 82570; 84443; 85025; G0103